=== PATIENT | female | born 1960 | race Caucasian/White ===

== ENCOUNTER 2017-07-04 15:40 | Observation (INO) | payer MEDICARE, MEDICAID, SELFPAY ==
[2017-07-04 15:41] VITALS: BP 106/95; PULSE 90; RESP 18; TEMP 37.1; O2SAT 97; BMI 33.7
--- NOTE | 2017-07-04 15:53 | EKG12_ITS ---
Test Reason : VOMITTING Blood Pressure : / mmHG Vent. Rate : 072 BPM Atrial Rate : 072 BPM P-R Int : 134 ms QRS Dur : 072 ms QT Int : 396 ms P-R-T Axes : 033 -08 004 degrees QTc Int : 433 ms Normal sinus rhythm Normal ECG Confirmed by LEMUEL JOHNSON, CHAITANYA ([id number]), index editor JARET SZYMANSKI ([id number]) on 07/06/2017 1:59:08 PM Referred By: ROSY Confirmed By:CHAITANYA HDEZ MD
--- NOTE | 2017-07-04 15:53 | CT_ITS ---
CT Abdomen And Pelvis W/ Contrast INDICATION: N/V/D AFTER EATING [place], HTN COMPARISON: None TECHNIQUE: Axial CT imaging of the abdomen and pelvis with IV contrast. Coronal and sagittal reformatted images. Radiation dose optimization technique applied. 100 mL of Isovue-300 were given intravenously. FINDINGS: The heart size is at the upper limits of normal. The liver, gallbladder, spleen, adrenal glands, and pancreas are unremarkable. The kidneys enhance contrast symmetrically bilaterally and are without evidence of hydronephrosis. Small cortical renal cyst is noted on the right. The bowel loops are nondistended. Air-fluid levels are seen throughout the small bowel loops and colon compatible with given history of diarrhea. There is no evidence of significant mesenteric fat stranding, free air or free fluid. Urinary bladder is unremarkable. Osseous structures are age-appropriate. CT/Abdomen/Pelvis W IV Cont ONLY IMPRESSION: Fluid throughout the small bowel and colon to the level of the rectum compatible with given history of diarrhea. Otherwise no acute intra-abdominal or pelvic pathology identified. at 1750 Reported and signed by: Adelita Bonilla MD Electronically Signed: Adelita Bonilla MD at 17:49 EDT Tel , Service support ,
[2017-07-04] MEDS: Ondansetron 4 MG/2 ML Vial IV (15:59)
[2017-07-04] MEDS: 0.9% Normal Saline 1,000 ML 1000 ML IV (15:59)
--- NOTE | 2017-07-04 15:59 | ED.DCSUM_ITS ---
- ER Visit Summary Date of Service: 07/04/17 Chief Complaint: Nausea, vomiting and diarrhea History of Present Illness: The patient is a 57 F who presents for nausea, vomiting and diarrhea with onset yesterday. Patient started with diffuse abdominal pain and then several episodes of watery diarrhea without blood or mucus. Patient has vomited twice today. Last episode of diarrhea was just prior to EMS arrival. Patient currently denies having abdominal pain. No history of abdominal surgeries. Patient complains of generalized weakness and malaise. 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 No official diagnosis. Denies other medical conditions. Physical Examination: Vital signs: afebrile, hemodynamically stable, no hypoxia on room air General: well nourished, well developed, in no distress Skin: warm, dry, no rash, no pallor HEENT: normocephalic and atraumatic; PERRL, EOMI, dry mucous membranes Cardiovascular: regular rate and rhythm without murmurs, no peripheral edema, 2 + pulses all distal extremities Respiratory: No increased work of breathing, lungs are clear to auscultation bilaterally, no rales, rhonchi or wheezing Abdominal: Abdomen is soft, nontender with hyperactive bowel sounds, no guarding or rebound, no masses MSK: Moves all extremities, no deformities, normal strength Neuro: Awake and alert, oriented ?4. No facial droop, sensation and motor function intact and symmetric Test Results: Abnormal Lab Results 07/04/17 07/04/17 07/04/17 16:00 16:00 17:30 WBC 3.3 L RBC 2.43 L Hgb 6.8 L Hct 21.5 L MCV 88.5 MCH 28.0 MCHC 31.6 L RDW 12.6 RDW Differential 40.6 Plt Count 98 L MPV 10.6 Immature Gran % (Auto) 0.000 Neut % (Auto) 82.0 H Lymph % (Auto) 12.2 L [place] % (Auto) 5.5 Eos % (Auto) 0.3 Baso % (Auto) 0.0 Absolute Neuts (auto) 2.7 Absolute Lymphs (auto) 0.40 L Total Counted Not Reportable Differential Comment SCANNED Diff Path Review May foll Sodium 137 Potassium 4.1 Chloride 106 Carbon Dioxide 23.0 Anion Gap 8 BUN 13 Creatinine 1.09 H Estim Creat Clear Calc 42.97 Est GFR (MDRD) Af Amer 67 Est GFR (MDRD) Non-Af 55 L BUN/Creatinine Ratio 11.9 Glucose 134 H Calcium 9.2 Total Bilirubin 1.30 H AST 10 L ALT 16 Alkaline Phosphatase 143 H Troponin I < 0.02 Total Protein 8.5 H Albumin 3.9 Globulin 4.6 H Albumin/Globulin Ratio 0.8 L Lipase 88 Urine Color Urine Clarity Urine pH Ur Specific [place] Urine Protein Urine Glucose (UA) Urine Ketones Urine Occult Blood Urine Nitrite Urine Bilirubin Urine Urobilinogen Ur Leukocyte Esterase Urine RBC Urine WBC Ur Squamous Epith Cells Urine Bacteria Urine Mucus Blood Type A POSITIVE Antibody Screen NEGATIVE 07/04/17 18:16 WBC RBC Hgb Hct MCV MCH MCHC RDW RDW Differential Plt Count MPV Immature Gran % (Auto) Neut % (Auto) Lymph % (Auto) [place] % (Auto) Eos % (Auto) Baso % (Auto) Absolute Neuts (auto) Absolute Lymphs (auto) Total Counted Differential Comment Diff Path Review Sodium Potassium Chloride Carbon Dioxide Anion Gap BUN Creatinine Estim Creat Clear Calc Est GFR (MDRD) Af Amer Est GFR (MDRD) Non-Af BUN/Creatinine Ratio Glucose Calcium Total Bilirubin AST ALT Alkaline Phosphatase Troponin I Total Protein Albumin Globulin Albumin/Globulin Ratio Lipase Urine Color Yellow Urine Clarity Clear Urine pH 5.0 Ur Specific [place] 1.010 Urine Protein 30 H Urine Glucose (UA) Normal Urine Ketones Negative Urine Occult Blood 50 H Urine Nitrite Negative Urine Bilirubin Negative Urine Urobilinogen Normal Ur Leukocyte Esterase 500 H Urine RBC 0 SEEN Urine WBC 0-5 SEEN Ur Squamous Epith Cells 0-5 SEEN Urine Bacteria 0 SEEN Urine Mucus 0 SEEN Blood Type Antibody Screen Clinical Impression(s) from Imaging Studies Abdomen/Pelvis CT 07/04/17 15:53 IMPRESSION: Fluid throughout the small bowel and colon to the level of the rectum compatible with given history of diarrhea. Otherwise no acute intra-abdominal or pelvic pathology identified. at 1750 Reported and signed by: Adelita Bonilla MD Electronically Signed: Adelita Bonilla MD at 17:49 EDT Tel , Service support , Emergency Department Course and Treatment: Given patient's age and nonspecific cardiac history with abdominal pain and vomiting, chest pain workup was included in patient's workup. Differential includes gastroenteritis, bowel obstruction, diverticulitis, colitis, acute coronary syndrome, metabolic pathology, among other possibilities. Patient was given IV hydration due to clinical appearance of dehydration. Zofran given for nausea, and patient declined pain medication as she is currently not having abdominal discomfort. Patient's lab work was remarkable for pancytopenia, changed from labs one year ago. Stool guaiac was performed and showed no occult blood. Patient did have active diarrhea at the time of rectal exam. The abdomen and pelvis showed no bowel obstruction, perforation, or other acute pathology other than fluid in the small bowel and colon consistent with diarrhea. Urine was negative for infection. Type and screen was performed, although patient had no active bleeding identified and thus transfusion was not given at this time. Concern is patient is still having active diarrhea with concern for dehydration. She is also pancytopenic, with the risk of further worsening of her pancytopenia with IV hydration and effective hemodilution. She would benefit from overnight observation for hydration and close monitoring of her condition. Patient was discussed with Dr. Resendez and admitted. Treatment Plan: [] Disposition: [] Impression: Gastroenteritis, pancytopenia, dehydration This note was generated with [employer] dictation software. It may contain incorrect words, spelling, and punctuation that were not noted in review of the chart prior to signing ED Disposition - Plan for ED Patient: Chief Complaint: Nausea/Vomiting/Diarrhea Referrals: Jaylon Jenkins DO [Primary Care Provider] -
[2017-07-04 16:24] LABS: Absolute Neutrophil Count 2.7 X10^3/uL (2.0-7.7); Eosinophil# 0.01 X10^3/uL; Eosinophils% 0.3 % (0-5); Hematocrit 21.5 % (37-47); Hemoglobin 6.8 g/dl (12.0-15.0); Lymphocyte % 12.2 % (19-41); Mean Corp Hgb Conc 31.6 g/gl (32-36); Mean Corpuscular Volume 88.5 fL (81-99); Mean Platelet Vol. 10.6 fl (6.2-12.0); Monocyte# 0.18 X10^3/uL; Monocyte% 5.5 % (0-10); Platelet Count 98 K/mm3 (150-450); RBC Distribution Width CV 12.6 % (11.6-14.6); RBC Distribution Width SD 40.6 fl (35.1-43.9); Red Blood Count 2.43 M/mm3 (4.2-5.4); White Blood Count 3.3 K/mm3 (4.4-11.0)
[2017-07-04 16:26] LABS: Differential Indicated SCAN CRITERIA MET; POSITIVE COUNT NO; POSITIVE DIFFERENTIAL YES; POSITIVE MORPHOLOGY NO
[2017-07-04 16:41] LABS: ALB/GLOB Ratio 0.8 RATIO (0.9-2.4); AST(SGOT) 10 U/L (15-37); Alanine Aminotransfer ALT/SGPT 16 U/L (13-56); Albumin, Serum 3.9 g/dL (3.2-5.0); Alkaline Phosphatase 143 U/L (45-117); Anion Gap 8 (5-15); BUN 13 mg/dL (7-18); BUN/Creat Ratio 11.9 RATIO (10-20); Calcium,Total 9.2 mg/dL (8.5-10.1); Chloride 106 mmol/L (98-107); Creatinine, Serum 1.09 mg/dL (0.55-1.02); EST Glomerular Filtration Rate 55 mL/min (>60); Est Glom Filt Rate - Afr Amer 67 mL/min (>60); Estimated Creatinine Clearance 42.97 ml/min; Globulin 4.6 g/dL (2.2-4.2); Glucose 134 mg/dL (74-106); Lipase 88 U/L (73-393); Potassium 4.1 mmol/L (3.5-5.1); Protein, Total 8.5 g/dL (6.4-8.2); Sodium Level 137 mmol/L (136-145)
[2017-07-04 17:19] LABS: Differential Comment SCANNED
[2017-07-04 18:27] LABS: Color, Urine Yellow (Yellow); Glucose, Dipstick Normal (Normal); Ketone-Dipstick Negative (Negative); Leukocyte Esterase-Dipstick 500 /ul (Negative); Nitrite-Dipstick Negative (Negative); Occult Blood-Urine 50 /ul (Negative); Protein-Dipstick 30 mg/dl (Negative); Urine Bilirubin Dipstick Negative (Negative); Urine Clarity Clear (Clear); Urine Urobilinogen Normal (Normal)
[2017-07-04 18:29] LABS: Bacteria 0 SEEN /hpf (None Seen); Mucous, Urine 0 SEEN /hpf (<or=2+); Red Blood Cells-Urine 0 SEEN /hpf (0-5)
[2017-07-04 18:33] LABS: Squamous Epithelial Cells - UA 0-5 SEEN /hpf (5-10); White Blood Cells 0-5 SEEN /hpf (0-5)
[2017-07-04 19:15] VITALS: BP 138/89; PULSE 80; RESP 16; O2SAT 97
[2017-07-04 19:23] VITALS: BP 138/89; PULSE 80; RESP 16; TEMP 37.1; O2SAT 97
[2017-07-04] MEDS: 0.9% Normal Saline 1,000 ML 100 ML IV (19:31)
--- NOTE | 2017-07-04 21:03 | PCM.HP.STD ---
Problem List (1) Pancytopenia Status: Acute (2) Signs and symptoms of anemia Status: Acute (3) Diarrhea Status: Acute History of Present Illness Date of Admission: 07/04/17 Chief Complaint: Acute symptomatic anemia The patient is a 57 year old female w/ h/o HTN admitted for acute symptomatic anemia. She ate at [employer] yesterday for dinner and after several hours, she had continuous diarrhea. The diarrhea was so severe that she was incontinence. No blood or melena noted. She also had associated severe dull aching abdominal pain. Pain was constant. Pain did not radiate. Nothing made it better or worse. Pain was not associated with any other symptoms. She had generalized weakness that was also worsening. She also had nausea and vomiting. She vomited up watery brown material. She was not able to keep food down so she went to the ED for further workup. 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 Lives: With Family Smoking Status: Never smoker Alcohol: None Drugs: None - *Family History Maternal History Items: No pertinent history Review of Systems Constitutional: Denies: Chills, Fever, Weight Change HEENT: Denies: Head Aches, Sinus Congestion, Sinus Drainage Cardiovascular: Denies: Chest Pain, Palpitations Respiratory: Denies: Cough, Shortness of breath at rest, Sputum production Gastrointestinal: Reports: Abdominal Pain, Nausea, Vomiting Genitourinary: Denies: Dysuria Musculoskeletal: Denies: Joint Pain, Joint Tenderness Skin: Denies: Rash, Wounds Neurological: Denies: Numbness, Tingling, Focal weakness Psychiatric: Denies: Anxiety, Depression, Homicidal Ideations, Suicidal Ideations Hematologic/ Lymphatic: Denies: Easy Bruising, Easy Bleeding VTE Information - Inpt Only VTE Present on Admission: No VTE Mechan Device Prophylaxis: SCD's VTE Pharm Prophylaxis ordered?: Yes Patient Problems: Active and Suspected Problems Pancytopenia (Acute) Signs and symptoms of anemia (Acute) Diarrhea (Acute) - Physical Exam General: Alert, Oriented x3, Cooperative HEENT: Atraumatic, PERRLA, EOMI, Normocephalic Neck: Supple, No JVD, Negative Carotid Bruits Lungs: Clear to auscultation, Normal air movement Cardiovascular: Regular rate, No murmurs Abdomen: Bowel Sounds Present, Soft, Non Tender Extremities: No edema, Capillary Refill Less than 3 Seconds Skin: No rashes, No breakdown Musculoskeletal: No Tenderness to Palpation of Joints or Extremities Neurological: Cranial nerves II-XII grossly intact Psych/Mental Status: Normal Affect, Appropriate Vital Signs Temp Pulse Resp BP Pulse Ox 98.7 F 80 16 138/89 H 97 07/04/17 19:23 07/04/17 19:23 07/04/17 19:23 07/04/17 19:23 07/04/17 19:23 Oxygen Delivery Method Room Air Weight: 81.1 kg Body Mass Index (BMI) 33.7 Microbiology Past 72 Hours 07/04/17 16:30 Stool Occult Blood (BRODY) - Final Stool Laboratory Tests Past 24 Hrs 07/04/17 07/04/17 07/04/17 16:00 16:00 17:30 WBC 3.3 L RBC 2.43 L Hgb 6.8 L Hct 21.5 L MCV 88.5 MCH 28.0 MCHC 31.6 L RDW 12.6 RDW Differential 40.6 Plt Count 98 L MPV 10.6 Immature Gran % (Auto) 0.000 Neut % (Auto) 82.0 H Lymph % (Auto) 12.2 L [place] % (Auto) 5.5 Eos % (Auto) 0.3 Baso % (Auto) 0.0 Absolute Neuts (auto) 2.7 Absolute Lymphs (auto) 0.40 L Total Counted Not Reportable Differential Comment SCANNED Diff Path Review May foll Sodium 137 Potassium 4.1 Chloride 106 Carbon Dioxide 23.0 Anion Gap 8 BUN 13 Creatinine 1.09 H Estim Creat Clear Calc 42.97 Est GFR (MDRD) Af Amer 67 Est GFR (MDRD) Non-Af 55 L BUN/Creatinine Ratio 11.9 Glucose 134 H Calcium 9.2 Total Bilirubin 1.30 H AST 10 L ALT 16 Alkaline Phosphatase 143 H Troponin I < 0.02 Total Protein 8.5 H Albumin 3.9 Globulin 4.6 H Albumin/Globulin Ratio 0.8 L Lipase 88 Urine Color Urine Clarity Urine pH Ur Specific [place] Urine Protein Urine Glucose (UA) Urine Ketones Urine Occult Blood Urine Nitrite Urine Bilirubin Urine Urobilinogen Ur Leukocyte Esterase Urine RBC Urine WBC Ur Squamous Epith Cells Urine Bacteria Urine Mucus Blood Type A POSITIVE Antibody Screen NEGATIVE 07/04/17 18:16 WBC RBC Hgb Hct MCV MCH MCHC RDW RDW Differential Plt Count MPV Immature Gran % (Auto) Neut % (Auto) Lymph % (Auto) [place] % (Auto) Eos % (Auto) Baso % (Auto) Absolute Neuts (auto) Absolute Lymphs (auto) Total Counted Differential Comment Diff Path Review Sodium Potassium Chloride Carbon Dioxide Anion Gap BUN Creatinine Estim Creat Clear Calc Est GFR (MDRD) Af Amer Est GFR (MDRD) Non-Af BUN/Creatinine Ratio Glucose Calcium Total Bilirubin AST ALT Alkaline Phosphatase Troponin I Total Protein Albumin Globulin Albumin/Globulin Ratio Lipase Urine Color Yellow Urine Clarity Clear Urine pH 5.0 Ur Specific [place] 1.010 Urine Protein 30 H Urine Glucose (UA) Normal Urine Ketones Negative Urine Occult Blood 50 H Urine Nitrite Negative Urine Bilirubin Negative Urine Urobilinogen Normal Ur Leukocyte Esterase 500 H Urine RBC 0 SEEN Urine WBC 0-5 SEEN Ur Squamous Epith Cells 0-5 SEEN Urine Bacteria 0 SEEN Urine Mucus 0 SEEN Blood Type Antibody Screen Assessment/Plan Active and Suspected Problems Pancytopenia (Acute) Signs and symptoms of anemia (Acute) Diarrhea (Acute) 57 year old female w/ h/o HTN admitted for acute symptomatic anemia. 1) Acute normocytic anemia: No gross e/o bleeding. Guaiac was negative. Will get iron studies, retic, B12, folate, LDH and haptoglobin. Will also get FOBT. Will transfuse 1 unit of PRBC to keep H and H > 7. 2) Pancytopenia: No clear etiology. Will get uric acid, LDH, coags, and serial labs. If persistent, most likely will need outpt hematology follow up. Monitor. 3) AIMEE: Most likely secondary azotemia. Hydration. Monitor for now. 4) Diarrhea: Hydration. No bleed or mucus. Will send for stool studies and C. diff. Supportive. 5) Prophylaxis: SCD
[2017-07-04 21:25] VITALS: BMI 33.2
[2017-07-04 21:30] VITALS: BMI 33.3
[2017-07-04 21:50] VITALS: BP 156/85; PULSE 79; RESP 18; TEMP 37.5; O2SAT 99
[2017-07-04 21:54] LABS: Immature Platelet Fraction 5.4 % (1.0-7.9); Reticulocyte Count 0.56 % (0.5-1.5)
[2017-07-04 22:00] VITALS: PULSE 74
[2017-07-04 22:19] LABS: Iron 44 ug/dL (50-170); Iron Binding Capacity,Total 309 ug/dL (250-450); LDH 169 U/L (84-246); PERCENT IRON SATURATION 14.2 % (15.0-55.0); Uric Acid 5.8 mg/dL (2.6-6.0)
[2017-07-04 22:40] LABS: Prothrombin Time (Protime)PT. 13.2 SECONDS (11.7-14.9)
[2017-07-04] MEDS: 0.9% Normal Saline 1,000 ML 150 ML IV (22:53)
[2017-07-05] VITALS (10 sets, daily range): BP systolic 115–147; BP diastolic 70–84; PULSE 51–81; RESP 16–18; TEMP 36.8–38.2; O2SAT 93–98
[2017-07-05] MEDS: Acetaminophen 325 MG Tablet 650 MG PO (01:42)
[2017-07-05] MEDS: Ceftriaxone 1 GM/50 ML BAG IV (04:20)
[2017-07-05 06:15] LABS: Absolute Lymphocyte Count 0.86 X10^3/ul (0.83-4.51); Absolute Neutrophil Count 3.1 X10^3/uL (2.0-7.7); Basophil# 0.01 X10^3/uL; Basophil% 0.2 % (0-1); Eosinophil# 0.03 X10^3/uL; Eosinophils% 0.7 % (0-5); Hematocrit 41.2 % (37-47); Hemoglobin 13.6 g/dl (12.0-15.0); Lymphocyte # 0.86 X10^3/ul (4.0); Mean Corpuscular Volume 87.8 fL (81-99); Mean Platelet Vol. 11.9 fl (6.2-12.0); Monocyte# 0.48 X10^3/uL; Monocyte% 10.6 % (0-10); Neutrophil # 3.14 X10^3/uL (2.7-7.7); Neutrophil % 69.3 % (47-70); Platelet Count 151 K/mm3 (150-450); RBC Distribution Width CV 12.8 % (11.6-14.6); RBC Distribution Width SD 40.9 fl (35.1-43.9); Red Blood Count 4.69 M/mm3 (4.2-5.4); White Blood Count 4.5 K/mm3 (4.4-11.0)
[2017-07-05 06:16] LABS: POSITIVE COUNT NO; POSITIVE DIFFERENTIAL NO; POSITIVE MORPHOLOGY NO
[2017-07-05 06:39] LABS: Anion Gap 6 (5-15); BUN 9 mg/dL (7-18); BUN/Creat Ratio 11.2 RATIO (10-20); Calcium,Total 8.2 mg/dL (8.5-10.1); Chloride 110 mmol/L (98-107); EST Glomerular Filtration Rate 79 mL/min (>60); Est Glom Filt Rate - Afr Amer 95 mL/min (>60); Estimated Creatinine Clearance 58.55 ml/min; Glucose 120 mg/dL (74-106); Potassium 4.1 mmol/L (3.5-5.1); Sodium Level 139 mmol/L (136-145)
[2017-07-05 08:21] LABS: Absolute Lymphocyte Count 1.08 X10^3/ul (0.83-4.51); Absolute Neutrophil Count 2.4 X10^3/uL (2.0-7.7); Basophil# 0.01 X10^3/uL; Basophil% 0.2 % (0-1); Eosinophil# 0.05 X10^3/uL; Eosinophils% 1.2 % (0-5); Hematocrit 40.2 % (37-47); Hemoglobin 13.1 g/dl (12.0-15.0); Lymphocyte # 1.08 X10^3/ul (4.0); Lymphocyte % 26.7 % (19-41); Mean Corp Hgb Conc 32.6 g/gl (32-36); Mean Corpuscular Hgb 28.7 pg (27.0-32.0); Mean Platelet Vol. 11.4 fl (6.2-12.0); Monocyte# 0.45 X10^3/uL; Monocyte% 11.1 % (0-10); Neutrophil # 2.44 X10^3/uL (2.7-7.7); Neutrophil % 60.6 % (47-70); Platelet Count 151 K/mm3 (150-450); RBC Distribution Width CV 12.9 % (11.6-14.6); RBC Distribution Width SD 41.4 fl (35.1-43.9); Red Blood Count 4.57 M/mm3 (4.2-5.4)
[2017-07-05 08:31] LABS: Anion Gap 5 (5-15); BUN 9 mg/dL (7-18); BUN/Creat Ratio 11.5 RATIO (10-20); Calcium,Total 8.1 mg/dL (8.5-10.1); Chloride 112 mmol/L (98-107); Creatinine, Serum 0.78 mg/dL (0.55-1.02); EST Glomerular Filtration Rate 81 mL/min (>60); Est Glom Filt Rate - Afr Amer 98 mL/min (>60); Estimated Creatinine Clearance 60.05 ml/min; Glucose 104 mg/dL (74-106); Sodium Level 140 mmol/L (136-145)
[2017-07-05 08:38] LABS: POSITIVE COUNT NO; POSITIVE DIFFERENTIAL NO; POSITIVE MORPHOLOGY NO
[2017-07-05 10:47] LABS: Absolute Lymphocyte Count 1.13 X10^3/ul (0.83-4.51); Basophil# 0.02 X10^3/uL; Basophil% 0.5 % (0-1); Eosinophils% 2.7 % (0-5); Hemoglobin 13.1 g/dl (12.0-15.0); Lymphocyte # 1.13 X10^3/ul (4.0); Lymphocyte % 30.2 % (19-41); Mean Corp Hgb Conc 33.6 g/gl (32-36); Mean Corpuscular Hgb 29.6 pg (27.0-32.0); Mean Platelet Vol. 11.3 fl (6.2-12.0); Monocyte# 0.52 X10^3/uL; Monocyte% 13.9 % (0-10); Neutrophil # 1.96 X10^3/uL (2.7-7.7); Neutrophil % 52.4 % (47-70); Platelet Count 156 K/mm3 (150-450); RBC Distribution Width CV 12.8 % (11.6-14.6); RBC Distribution Width SD 40.9 fl (35.1-43.9); Red Blood Count 4.43 M/mm3 (4.2-5.4); White Blood Count 3.7 K/mm3 (4.4-11.0)
[2017-07-05 10:49] LABS: POSITIVE COUNT NO; POSITIVE DIFFERENTIAL NO; POSITIVE MORPHOLOGY NO
--- NOTE | 2017-07-05 11:11 | PCM.DC ---
- Discharge Diagnoses Current Active Problems: Current Active and Chronic Problems Pancytopenia (Acute) Signs and symptoms of anemia (Acute) Diarrhea (Acute) You will use the following diet at home:: Cardiac Your food should be the consistency of: Regular Discharge Activity: Return to Normal Activity Weight Bearing Status: Full weight bearing Call your doctor if you observe: Fever of 101 or Higher, Shortness of breath, Dizziness, Fainting spells, Chest pain, Increased palpitations (irregular heartbeat), Uncontrolled pain Instructions: ED Food Poison Or Gastroenteritis Allergies/Adverse Reactions: Allergies No Known Allergies Allergy (Verified 12/06/16 00:43) Medications to take at Discharge Lisinopril [Zestril] 10 mg PO DAILY 07/04/17 Nitroglycerin 0.4 mg PO X1 PRN 07/04/17 Primary Care Physician: Jaylon Jenkins DO [Primary Care Provider] - Please follow up with your Primary Care Physician in: 2 weeks.
[2017-07-05] MEDS: Lisinopril 10 MG Tablet PO (12:07)
--- NOTE | 2017-07-05 14:28 | PCM.DC.SUM ---
Discharge Date and Diagnosis Date of Admission: 07/04/17 Date of Discharge: 07/05/17 - Primary Discharge Diagnosis #1 acute viral gastroenteritis. #2 acute anemia/pancytopenia, probable laboratory error. Hospital Course and Treatment Imaging Results: Clinical Impression(s) from Imaging Studies Abdomen/Pelvis CT 07/04/17 15:53 IMPRESSION: Fluid throughout the small bowel and colon to the level of the rectum compatible with given history of diarrhea. Otherwise no acute intra-abdominal or pelvic pathology identified. at 1750 Reported and signed by: Adelita Bonilla MD Electronically Signed: Adelita Bonilla MD at 17:49 EDT Tel , Service support , Operations: None Procedures: Blood transfusion Summary of Care Provided: Patient seen and examined on the day of discharge and appeared to be stable to be discharged home. She has no more diarrhea. Denied abdominal pain, nausea, vomiting, fever chills. Denied dizziness or lightheadedness. Vital signs stable, afebrile. - Physical Exam General: Alert, Oriented x3, Cooperative, No apparent distress. HEENT: Atraumatic, PERRLA, EOMI. Neck: Supple, No JVD, Negative Carotid Bruits, Trachea Midline, Thyroid Normal. Lungs: Clear to auscultation, Normal air movement, No rhonchi, No wheeze, No rales. Cardiovascular: Regular rate, Regular Rhythm, Normal S1, Normal S2, PMI Normal. Abdomen: Bowel Sounds Present, Soft, Non Tender, Non-Distended, No Hepato-splenomegaly. Extremities: No clubbing, No cyanosis, No edema Skin: No rashes, No breakdown Neurological: Neuro grossly intact Vital Signs are stable. Hospital course: The patient is a 57 year old F admitted because of nausea, vomiting and diarrhea after she ate at [employer] and she was diagnosed with acute viral gastroenteritis. In the emergency room, her routine blood work was remarkable for pancytopenia. Her total white blood cell count, hemoglobin and platelet count were low. Her absolute neutrophil count was normal. She was admitted with hemoglobin of 6.8 g/dL. Her stool for occult blood was negative. Patient denied any bleeding from body orifices. Her pro time and INR were normal. Her platelet count was 98,000. There was no evidence or source of bleeding during this admission. She received 1 unit of packed RBCs and her hemoglobin went up from 6.8 g/dL after 1 unit to 13.6 g/dL. On repeat CBC this morning, her total white blood cell count, hemoglobin and platelet count old came back normal. This is considered probably a laboratory error versus some acute viral gastrointestinal illness that caused transient pancytopenia. Today, patient has no more diarrhea and her vital signs remained stable and she remained afebrile. Her BMP remained normal. Another CBC done around noon today before discharge again showed hemoglobin of 13.1 g/dL, platelet count of 151,000 and total white blood cell count is 4000. Patient discharged home in a stable medical condition, discharged on her lisinopril as usual without any changes, recommended to hydrate herself very well if she continued to have diarrhea, recommended follow-up with PCP in 2 weeks. Discharge Activity: Return to Normal Activity Weight Bearing Status: Full weight bearing Call your doctor if you observe: Fever of 101 or Higher, Shortness of breath, Dizziness, Fainting spells, Chest pain, Increased palpitations (irregular heartbeat), Uncontrolled pain Home Medications: Medications to take at Discharge Lisinopril [Zestril] 10 mg PO DAILY 07/04/17 Nitroglycerin 0.4 mg PO X1 PRN 07/04/17 Primary Care Physician: Jaylon Jenkins DO [Primary Care Provider] - Please follow up with your Primary Care Physician in: 2 weeks. Patient Instructions: ED Food Poison Or Gastroenteritis Disposition: Home Minutes spent on discharge:: 26 Patient Condition:: Stable Medical Necessity - Tobacco Use Smoking Status: Never smoker Tobacco Use: Secondhand Meaningful Use Info Meaningful Use Diagnoses (Choose all that apply): None applicable Code Visit Inpatient E&M: 86364 Disch Hosp
--- NOTE | 2017-07-05 14:37 | DS.PCM_ITS ---
Discharge Date and Diagnosis Date of Admission: 07/04/17 Date of Discharge: 07/05/17 - Primary Discharge Diagnosis #1 acute viral gastroenteritis. #2 acute anemia/pancytopenia, probable laboratory error. Hospital Course and Treatment Imaging Results: Clinical Impression(s) from Imaging Studies Abdomen/Pelvis CT 07/04/17 15:53 IMPRESSION: Fluid throughout the small bowel and colon to the level of the rectum compatible with given history of diarrhea. Otherwise no acute intra-abdominal or pelvic pathology identified. at 1750 Reported and signed by: Adelita Bonilla MD Electronically Signed: Adelita Bonilla MD at 17:49 EDT Tel , Service support , Operations: None Procedures: Blood transfusion Summary of Care Provided: Patient seen and examined on the day of discharge and appeared to be stable to be discharged home. She has no more diarrhea. Denied abdominal pain, nausea, vomiting, fever chills. Denied dizziness or lightheadedness. Vital signs stable, afebrile. - Physical Exam General: Alert, Oriented x3, Cooperative, No apparent distress. HEENT: Atraumatic, PERRLA, EOMI. Neck: Supple, No JVD, Negative Carotid Bruits, Trachea Midline, Thyroid Normal. Lungs: Clear to auscultation, Normal air movement, No rhonchi, No wheeze, No rales. Cardiovascular: Regular rate, Regular Rhythm, Normal S1, Normal S2, PMI Normal. Abdomen: Bowel Sounds Present, Soft, Non Tender, Non-Distended, No Hepato- splenomegaly. Extremities: No clubbing, No cyanosis, No edema Skin: No rashes, No breakdown Neurological: Neuro grossly intact Vital Signs are stable. Hospital course: The patient is a 57 year old F admitted because of nausea, vomiting and diarrhea after she ate at [employer] and she was diagnosed with acute viral gastroenteritis. In the emergency room, her routine blood work was remarkable for pancytopenia. Her total white blood cell count, hemoglobin and platelet count were low. Her absolute neutrophil count was normal. She was admitted with hemoglobin of 6.8 g/dL. Her stool for occult blood was negative. Patient denied any bleeding from body orifices. Her pro time and INR were normal. Her platelet count was 98,000. There was no evidence or source of bleeding during this admission. She received 1 unit of packed RBCs and her hemoglobin went up from 6.8 g/dL after 1 unit to 13.6 g/dL. On repeat CBC this morning, her total white blood cell count, hemoglobin and platelet count old came back normal. This is considered probably a laboratory error versus some acute viral gastrointestinal illness that caused transient pancytopenia. Today, patient has no more diarrhea and her vital signs remained stable and she remained afebrile. Her BMP remained normal. Another CBC done around noon today before discharge again showed hemoglobin of 13.1 g/dL, platelet count of 151,000 and total white blood cell count is 4000. Patient discharged home in a stable medical condition, discharged on her lisinopril as usual without any changes, recommended to hydrate herself very well if she continued to have diarrhea, recommended follow-up with PCP in 2 weeks. Discharge Activity: Return to Normal Activity Weight Bearing Status: Full weight bearing Call your doctor if you observe: Fever of 101 or Higher, Shortness of breath, Dizziness, Fainting spells, Chest pain, Increased palpitations (irregular heartbeat), Uncontrolled pain Home Medications: Medications to take at Discharge Lisinopril [Zestril] 10 mg PO DAILY 07/04/17 Nitroglycerin 0.4 mg PO X1 PRN 07/04/17 Primary Care Physician: Jaylon Jenkins DO [Primary Care Provider] - Please follow up with your Primary Care Physician in: 2 weeks. Patient Instructions: ED Food Poison Or Gastroenteritis Disposition: Home Minutes spent on discharge:: 26 Patient Condition:: Stable Medical Necessity - Tobacco Use Smoking Status: Never smoker Tobacco Use: Secondhand Meaningful Use Info Meaningful Use Diagnoses (Choose all that apply): None applicable Code Visit Inpatient E&M: 23722 Disch Hosp
[2017-07-06 09:16] LABS: Vitamin B12 364 pg/mL (211-911)
[2017-07-06 10:05] LABS: Pathologist Review Reviewed
[2017-07-07 10:48] LABS: Haptoglobin 169 mg/dL (34-200)
== END 2017-07-05 13:10 | disposition home or self-care (01) | DRG 392 ==
LOC: ED 16:19 → MS2 20:53
PROVIDERS: Admitting Provider Internal Medicine; Emergency Provider Emergency Medicine; Family Provider Family Medicine; PCP Family Medicine; Visit Provider Hospitalist
DX: A08.4 Viral intestinal infection, unspecified (principal); D61.818 Other pancytopenia; E86.0 Dehydration; N17.9 Acute kidney failure, unspecified; I10 Essential (primary) hypertension; Z79.899 Other long term (current) drug therapy
CPT/HCPCS: 36415; 36430; 74177; 80048; 80053; 81001; 82274; 82607; 82746; 83010; 83540; 83550; 83615; 83690; 84484; 84550; 85025; 85045; 85610; 86850; 86900; 86920; 86922; 87040; 93005; 99218; 99283; J7030; P9016; Q9967; A4216; G0378; J2405

== ENCOUNTER 2017-10-04 21:00 | Emergency (ER) | payer MEDICARE, MEDICAID, SELFPAY ==
[2017-10-04 21:01] VITALS: BP 156/100; PULSE 48; RESP 18; TEMP 36.4; O2SAT 100; BMI 33.8
--- NOTE | 2017-10-04 21:24 | RAD_ITS ---
STUDY: X-RAY - LEFT HAND REASON FOR EXAM: Female, 57 years old. PT STATED PAIN AFTER CLOSING HAND IN CAR DOOR TECHNIQUE: 3 view(s) of the hand. COMPARISON: None. FINDINGS: Normal radiocarpal articulation. Normal distal radioulnar joint. Remote deformity of the ulnar styloid. Normal visualized carpal bones. Normal carpal articulations Normal carpometacarpal articulation of the thumb. Normal second through fifth carpometacarpal joints. Normal metacarpi. Normal metacarpophalangeal joint of the thumb. Normal interphalangeal joint of the thumb. Normal proximal and distal phalanges of the thumb. Normal metacarpophalangeal joints of the second through fifth fingers. Normal proximal and distal interphalangeal joints of the second through fifth fingers. Normal phalanges of the second through fifth fingers. The soft tissue structures are unremarkable. RAD/Hand Min 3 Views IMPRESSION: No acute osseous injury is evident. Electronically Signed: Philip Hurd MD at 22:18 EDT Tel , Service support ,
--- NOTE | 2017-10-04 22:36 | ED.VISSUMM ---
- ER Visit Summary Date of Service: 10/04/17 Chief Complaint: Left hand pain History of Present Illness: The patient is a 57 F who presents with left hand pain. About 2 hours prior to presentation was excellently closed in a car door. She denies paresthesias weakness or loss of function. She denies any other injury. Physical Examination: Afebrile vitals unremarkable I do not appreciate any obvious signs of trauma such as lacerations contusions abrasions hematomas or soft tissue swelling Patient does complain of pain of the distal left hand near the second through fifth MCPs she has brisk capillary refill normal sensation light touch and active full range of motion Test Results: Hand x-ray shows no acute osseous injury Emergency Department Course and Treatment: Patient was advised on supportive care including rest ice elevation and anti-inflammatory use. All questions answered bedside and patient discharged home. Treatment Plan: [] Disposition: Discharge Impression: Acute left hand contusion This note was generated with Synacor dictation software. It may contain incorrect words, spelling, and punctuation that were not noted in review of the chart prior to signing ED Disposition - Plan for ED Patient: Chief Complaint: Upper Extremity Injury Referrals: Jaylon Jenkins DO [Primary Care Provider] -
--- NOTE | 2017-10-04 22:38 | ED.DEP ---
ED Disposition - Plan for ED Patient: Chief Complaint: Upper Extremity Injury Instructions: ED Contusion Hand Referrals: Jaylon Jenkins DO [Primary Care Provider] -
[2017-10-04] MEDS: Naproxen 500 MG Tablet PO (22:45)
[2017-10-04 22:46] VITALS: PULSE 78; RESP 14; O2SAT 99
== END 2017-10-04 23:14 | disposition home or self-care (01) ==
PROVIDERS: Emergency Provider Emergency Medicine; Family Provider Family Medicine; PCP Family Medicine
DX: S60.222A Contusion of left hand, initial encounter (principal); I10 Essential (primary) hypertension; Z79.82 Long term (current) use of aspirin; Z79.899 Other long term (current) drug therapy; W23.0XXA Caught, crushed, jammed, or pinched between moving objects, initial encounter; Y93.89 Activity, other specified; Y92.89 Other specified places as the place of occurrence of the external cause; Y99.8 Other external cause status
CPT/HCPCS: 73130; 99282

== ENCOUNTER → 2018-01-19 13:03 | Outpatient (CLI) | payer MEDICARE, MEDICAID, SELFPAY | PROVIDERS: Family Provider Family Medicine; PCP Family Medicine; Visit Provider Family Medicine | DX: I10 Essential (primary) hypertension (principal); R73.01 Impaired fasting glucose ==

== ENCOUNTER → 2018-01-25 09:17 | Outpatient (CLI) | payer MEDICARE, MEDICAID, SELFPAY ==
[2018-01-25 12:19] LABS: Absolute Lymphocyte Count 1.85 X10^3/ul (0.83-4.51); Absolute Neutrophil Count 2.1 X10^3/uL (2.0-7.7); Basophil# 0.02 X10^3/uL; Basophil% 0.5 % (0-1); Eosinophil# 0.09 X10^3/uL; Eosinophils% 2.1 % (0-5); Hemoglobin 12.8 g/dl (12.0-15.0); Lymphocyte # 1.85 X10^3/ul (4.0); Mean Corpuscular Hgb 28.8 pg (27.0-32.0); Mean Corpuscular Volume 90.1 fL (81-99); Mean Platelet Vol. 12.4 fl (6.2-12.0); Monocyte# 0.27 X10^3/uL; Monocyte% 6.3 % (0-10); Neutrophil # 2.07 X10^3/uL (2.7-7.7); Neutrophil % 48.1 % (47-70); Platelet Count 209 K/mm3 (150-450); RBC Distribution Width CV 12.6 % (11.6-14.6); RBC Distribution Width SD 40.8 fl (35.1-43.9); Red Blood Count 4.44 M/mm3 (4.2-5.4); White Blood Count 4.3 K/mm3 (4.4-11.0)
[2018-01-25 12:32] LABS: POSITIVE COUNT NO; POSITIVE DIFFERENTIAL NO; POSITIVE MORPHOLOGY NO
[2018-01-25 12:42] LABS: AST(SGOT) 25 U/L (15-37); Alanine Aminotransfer ALT/SGPT 26 U/L (13-56); Albumin, Serum 3.6 g/dL (3.2-5.0); Alkaline Phosphatase 112 U/L (45-117); Anion Gap 5 (5-15); BUN 10 mg/dL (7-18); Calcium,Total 8.9 mg/dL (8.5-10.1); Chloride 107 mmol/L (98-107); Creatinine, Serum 0.84 mg/dL (0.55-1.02); EST Glomerular Filtration Rate 75 mL/min (>60); Est Glom Filt Rate - Afr Amer 90 mL/min (>60); Globulin 3.7 g/dL (2.2-4.2); Glucose 116 mg/dL (74-106); Potassium 5.2 mmol/L (3.5-5.1); Protein, Total 7.3 g/dL (6.4-8.2); Sodium Level 139 mmol/L (136-145)
[2018-01-25 12:55] LABS: Hemoglobin A1c 6.2 % (4.2-6.3)
== END ==
PROVIDERS: Family Provider Family Medicine; PCP Family Medicine; Visit Provider Family Medicine
DX: I10 Essential (primary) hypertension (principal); R73.01 Impaired fasting glucose
CPT/HCPCS: 36415; 80053; 83036; 85025

== ENCOUNTER 2018-05-04 14:01 | Emergency (ER) | payer MEDICARE, MEDICAID, SELFPAY ==
[2018-05-04 14:02] VITALS: BP 184/88; PULSE 61; RESP 16; TEMP 36.6; O2SAT 99; BMI 35.2
[2018-05-04 15:01] LABS: Bacteria 0 SEEN /hpf (None Seen); Mucous, Urine 0 SEEN /hpf (<or=2+); Red Blood Cells-Urine 0 SEEN /hpf (0-5); Squamous Epithelial Cells - UA 0 SEEN /hpf (5-10)
[2018-05-04 15:08] LABS: Color, Urine Yellow (Yellow); Glucose, Dipstick Normal (Normal); Ketone-Dipstick Negative (Negative); Leukocyte Esterase-Dipstick 500 /ul (Negative); Nitrite-Dipstick Negative (Negative); Occult Blood-Urine 10 /ul (Negative); Protein-Dipstick Negative (Negative); Specific Gravity, Urine 1.015 (1.002-1.030); Urine Bilirubin Dipstick Negative (Negative); Urine Clarity Clear (Clear); Urine Urobilinogen Normal (Normal)
[2018-05-04 15:18] LABS: White Blood Cells 0-5 SEEN /hpf (0-5)
--- NOTE | 2018-05-04 16:00 | ED.VISSUMM ---
- ER Visit Summary Date of Service: 05/04/18 Chief Complaint: Dysuria, urgency and irritation of labia History of Present Illness: The patient is a 58 F who presents with dysuria, urgency and irritation of labia with urination for the past 2 days. She is sexually inactive. There is no history of STD. She denies vaginal bleeding or vaginal discharge. She is not diabetic. She denies polyuria, polydipsia, polyphagia, nocturia. She denies fever, chills night sweats. She denies abdominal pain. She denies low back pain or flank pain. Past medical history hypertension, pancytopenia and status post tonsillectomy. She has no allergies. Physical Examination: Vital signs noted. She is afebrile. BMI 35.2. Head is atraumatic normocephalic. Pupils are equal round reactive. Extraocular muscles are intact. TMs are pearly white with landmarks noted. Nares patent with no drainage. Posterior pharynx without erythema or exudate. Uvula is midline. There is no dysphonia or dysphasia. Trachea is midline. There is no stridor with auscultation of the neck. Heart is regular without murmur, gallop or rub. S1 and S2 are normal. Lungs are clear to auscultation with good movement of air bilaterally. Abdomen is soft nontender bowel sounds present normal. There is no suprapubic discomfort. There is no CVA tenderness noted. There is no inguinal lymphadenopathy. There is slight irritation of the labia. There is inflammation noted of the urethra. There is no vaginal discharge or bleeding. There is no herpetic lesions noted. Test Results: UA reveals leukoesterase blood and 5 WBCs. No bacteria is noted. Emergency Department Course and Treatment: UA was obtained to evaluate her symptoms. There is no evidence of yeast infection, herpetic lesions etc. Treatment Plan: Macrobid for 5 days Disposition: Discharged home Impression: Dysuria suspect UTI This note was generated with Therio dictation software. It may contain incorrect words, spelling, and punctuation that were not noted in review of the chart prior to signing ED Disposition - Plan for ED Patient: Disposition: Home or Assisted Living Instructions: ED Dysuria Uncertain Cause Prescriptions: Nitrofurantoin Macrocrystals [Macrobid] 100 mg PO Q12 #10 cap Nystatin Powder [Mycostatin Powder] 1 applic TOPICAL TID #1 bottle Referrals: Jaylon Jenkins, [Primary Care Provider] - 3-5 Days if not improving
[2018-05-04 16:19] VITALS: BP 158/93; PULSE 87; RESP 16; O2SAT 99
[2018-05-04] MEDS: Nitrofurantoin Macrocrystals 100 MG Capsule PO (16:34)
== END 2018-05-04 16:35 | disposition home or self-care (01) ==
PROVIDERS: Emergency Provider Emergency Medicine; Family Provider Family Medicine; PCP Family Medicine
DX: R30.0 Dysuria (principal); E66.9 Obesity, unspecified; Z68.35 Body mass index [BMI] 35.0-35.9, adult
CPT/HCPCS: 81001; 99283

== ENCOUNTER → 2018-06-01 10:49 | Outpatient (CLI) | payer MEDICARE, MEDICAID, SELFPAY ==
[2018-05-13 15:10] VITALS: BMI 34.7
--- NOTE | 2018-06-01 11:16 | ECHOD_ITS ---
Reason For Study: DYSPNEA/SOB Procedure This was a 2D Doppler, Color Flow transthoracic echocardiogram. The exam was of adequate technical quality. Exam performed in department. Left Ventricle Normal LV size. Left ventricular systolic function is normal. The estimated ejection fraction is 60 %. No evidence for diastolic dysfunction. No regional wall motion abnormalities noted. Right Ventricle Normal RV size. Normal systolic function. Atria Normal left atrium. Normal right atrium. No doppler evidence for ASD. Mitral Valve There is no mitral annular calcification. Mild mitral valve prolapse, posterior leaflet. Trivial mitral valve insufficiency. Tricuspid Valve Normal tricuspid valve. Trivial tricuspid valve insufficiency. Right ventricular systolic pressure estimated to be 28 mmHg. Aortic Valve Trisinus/trileaflet aortic valve. Normal aortic valve. Pulmonic Valve The pulmonic valve is not well visualized. Trivial pulmonic valve insufficiency. Great Vessels Normal sized aortic root. Pericardium/Pleural No pericardial effusion. MMode/2D Measurements & Calculations LVIDd: 4.9 cm IVSd: 0.90 cm Ao root diam: 3.0 cm LVIDs: 3.2 cm LVPWd: 0.85 cm RVDd: 3.4 cm FS: 34.3 % LAV(MOD-bp): 40.8 ml LVAd ap4: 28.9 cm2 SV(MOD-sp4): 50.4 ml LAV(MOD-bp) Indexed: 22.4 ml/m2 EDV(MOD-sp4): 82.3 ml LAV(MOD-sp2): 50.2 ml EDV(sp4-el): 86.1 ml LAV(MOD-sp4): 25.8 ml LVAs ap4: 15.9 cm2 ESV(MOD-sp4): 31.9 ml ESV(sp4-el): 31.0 ml EF(MOD-sp4): 61.3 % EF(sp4-el): 64.1 % SV(sp4-el): 55.1 ml LA A4 area: 11.6 cm2 LA dimension(2D): 3.2 cm RA A4 area: 12.1 cm2 Time Measurements MV dec time: 0.20 sec Doppler Measurements & Calculations MV E max marvin: 84.2 cm/sec Lat Peak E' Marvin: 7.2 cm/sec Med Peak E' Marvin: 7.0 cm/sec MV A max marvin: 70.7 cm/sec E/E' lat: 11.7 E/E' med: 12.1 MV E/A: 1.2 Ao V2 max: 161.6 cm/sec LV V1 max: 100.1 cm/sec PA V2 max: 83.2 cm/sec Ao max P.4 mmHg LV V1 max P.0 mmHg TR max marvin: 248.1 cm/sec TR max P.6 mmHg Interpretation Summary Left ventricular systolic function is normal. The estimated ejection fraction is 60 %. Mild mitral valve prolapse, posterior leaflet Trivial mitral valve insufficiency. Trivial tricuspid valve insufficiency. Trivial pulmonic valve insufficiency. Right ventricular systolic pressure estimated to be 28 mmHg. No evidence for diastolic dysfunction. Ordering Physician: Greg Austin Referring Physician: MANAS BROCK Performed By: Zaira Bull RDCS
[2018-06-01 11:17] LABS: Absolute Lymphocyte Count 1.39 X10^3/ul (0.83-4.51); Basophil# 0.03 X10^3/uL; Basophil% 0.8 % (0-1); Eosinophil# 0.08 X10^3/uL; Eosinophils% 2.2 % (0-5); Hematocrit 41.6 % (37-47); Hemoglobin 13.3 g/dl (12.0-15.0); Lymphocyte # 1.39 X10^3/ul (4.0); Lymphocyte % 37.6 % (19-41); Mean Corpuscular Hgb 28.4 pg (27.0-32.0); Mean Corpuscular Volume 88.7 fL (81-99); Mean Platelet Vol. 11.6 fl (6.2-12.0); Monocyte# 0.25 X10^3/uL; Monocyte% 6.8 % (0-10); Neutrophil # 1.95 X10^3/uL (2.7-7.7); Neutrophil % 52.6 % (47-70); Platelet Count 197 K/mm3 (150-450); RBC Distribution Width SD 38.6 fl (35.1-43.9); Red Blood Count 4.69 M/mm3 (4.2-5.4); White Blood Count 3.7 K/mm3 (4.4-11.0)
[2018-06-01 11:18] LABS: POSITIVE COUNT NO; POSITIVE DIFFERENTIAL NO; POSITIVE MORPHOLOGY NO
[2018-06-01 11:21] LABS: Prothrombin Time (Protime)PT. 13.3 SECONDS (11.7-14.9)
[2018-06-01 11:22] LABS: Partial Thromboplast Time 28.8 Seconds (24.1-36.2)
[2018-06-01 11:37] LABS: Anion Gap 5 (5-15); BUN 7 mg/dL (7-18); BUN/Creat Ratio 7.3 RATIO (10-20); Calcium,Total 8.6 mg/dL (8.5-10.1); Chloride 108 mmol/L (98-107); Creatinine, Serum 0.95 mg/dL (0.55-1.02); EST Glomerular Filtration Rate 64 mL/min (>60); Est Glom Filt Rate - Afr Amer 77 mL/min (>60); Glucose 101 mg/dL (74-106); Potassium 3.7 mmol/L (3.5-5.1); Sodium Level 140 mmol/L (136-145)
== END ==
PROVIDERS: Family Provider Family Medicine; PCP Family Medicine; Referring Provider Internal Medicine Cardiovascular Disease; Visit Provider Internal Medicine Cardiovascular Disease
DX: R06.02 Shortness of breath (principal); I10 Essential (primary) hypertension; I20.9 Angina pectoris, unspecified
CPT/HCPCS: 36415; 80048; 85025; 85610; 85730; 93306

== ENCOUNTER 2018-06-08 07:57 | Day surgery (SDC) | payer MEDICARE, MEDICAID, SELFPAY ==
[2018-05-13 15:10] VITALS: BMI 34.7
--- NOTE | 2018-06-01 11:55 | RAD_ITS ---
STUDY: X-RAY CHEST REASON FOR EXAM: Female, 58 years old. Shortness of breath. TECHNIQUE: Frontal and lateral views of the chest. COMPARISON: 05/31/2016. FINDINGS: The lungs are clear and expanded. There is no demonstrated pleural abnormality. Normal size heart. Normal mediastinum and damian. Normal visualized pulmonary arteries. Normal visualized aortic arch and descending thoracic aorta. Normal visualized thoracic spine. Normal visualized ribs, clavicles, and shoulders. There is no demonstrated abnormality of the visualized soft tissue structures of the upper abdomen. RAD/Chest PA and Lateral IMPRESSION: Normal x-ray examination of the chest. Electronically Signed: Neo Dalton MD at 15:35 EDT , Service support ,
[2018-06-07 09:10] VITALS: BMI 34.7
--- NOTE | 2018-06-08 10:14 | CL.D_ITS ---
Patient Name: ANEUDY BERMUDEZ Study Date: 06/08/2018 Performing: Greg Austin MD Ht: 61.02 inches 155 cm : 1960 Wt: 182.98 lbs 83 kg Age: 58 Gender: female BSA: 1.82 PROCEDURE(S) PERFORMED [id number]/LV CLINICAL PROFILE AND INDICATIONS Indications: Suspected CAD Heart Failure: None Stress/Imaging Standard Exercise Stress Test: Yes Result: Positive Angina Classification Anginal Classification w/in 2 Weeks: CCS III CAD Presentations: Other: Chest pain CONCLUSIONS Normal Left Ventricular End Diastolic Pressure Normal LV size, wall motion,and systolic function LVEF: by LV gram 65 % Normal coronary arteries RECOMMENDATIONS Risk factor modification Medical therapy Follow up with primary care physician DESCRIPTION OF PROCEDURE The patient arrived to the procedure lab. The risks and benefits of the procedure as well as a full d escription of our services here and current unavailability of surgical backup were fully explained to the patient and/or their significant other prior to the catheterization. The Timeout was completed, verifying the correct patient and procedure. The patient's procedural site was prepped and draped in the usual fashion. Local anesthetic was given subcutaneously to right radial region with Lidocaine 2% . Using a modified Seldinger technique, arterial access was obtained via the right radial artery, a 6 Fr sheath was inserted. Left Coronary Artery selective angiography was performed in multiple views u sing a 5 Fr. 4.0 Haiku catheter. Right Coronary Artery selective angiography was then performed in mu ltiple views using a 5 Fr. 4.0 Haiku catheter. Left Ventriculography was performed in CASAS projection using a 5 Fr. Pigtail catheter. LV to AO pullback pressures were then recorded.The arterial sheath was pulled and a TR Band was applied for hemostasis w/ 13ml air CORONARY ANGIOGRAPHY DOMINANCE: Right Dominant LEFT HEART ASSESSMENT Left Ventricular Ejection Fraction: by LV Gram 65 % Normal LV wall motion Normal Left Ventricular End Diastolic Pressure LVEDP: 10 mmHg LEFT MAIN: Angiographically normal LEFT ANTERIOR DECENDING ARTERY: Angiographically normal CIRCUMFLEX ARTERY: Angiographically normal RIGHT CORONARY ARTERY: Angiographically normal VALVE FINDINGS: Normal Aortic Valve function Normal Mitral Valve function AORTIC ROOT: Angiographically normal COMPLICATIONS No Complications PROCEDURE MEDICATIONS Versed 1 mg IV Fentanyl 50 mcg IV Fentanyl 50 mcg IV Versed 1 mg IV Oxygen: 2 L/min via nasal cannula Heparin diluted in 23cc Heparinized saline. Patient given 10cc IA of this solution. 06/08/2018 09:43: 10 Verapamil 2.5mg, Ntg 100mcgs, 2000 units of Heparin diluted in 23cc Heparinized saline. Patient give n 10cc IA of this solution. 06/08/2018 09:43:10 SUMMARY OF HEMODYNAMIC DATA Time AIR REST ECG 08:20:41 AO 111/67 (85) SA 09:44:24 LV 129/-3, 11 09:51:29 LV 124/-4, 10 09:51:36 LV 120/0, 12 09:52:44 LVp 122/-1, 12 09:52:50 AOp 127/66 (91) 09:52:55 Signed By Greg Austin MD On 06/08/2018 10:14:20 Greg Austin MD
== END 2018-06-08 13:07 | disposition home or self-care (01) ==
LOC: CLSP 07:58
PROVIDERS: Family Provider Family Medicine; PCP Family Medicine; Referring Provider Internal Medicine Cardiovascular Disease; Visit Provider Internal Medicine Cardiovascular Disease
DX: R07.89 Other chest pain (principal); I20.9 Angina pectoris, unspecified; R94.39 Abnormal result of other cardiovascular function study; R06.02 Shortness of breath; I10 Essential (primary) hypertension; E66.3 Overweight; Z68.34 Body mass index [BMI] 34.0-34.9, adult; Z79.82 Long term (current) use of aspirin; Z79.899 Other long term (current) drug therapy
CPT/HCPCS: 71046; 93458; 99152; 99153; J7040; C1769; C1894; Q9967

== ENCOUNTER 2018-10-07 21:25 | Emergency (ER) | payer MEDICARE, MEDICAID, SELFPAY ==
[2018-07-28 13:10] VITALS: BMI 34.2
[2018-10-07 21:30] VITALS: BP 163/92; PULSE 49; RESP 16; TEMP 37; O2SAT 97; BMI 35.6
[2018-10-07 21:36] VITALS: O2SAT 97
--- NOTE | 2018-10-07 21:36 | EKG12_ITS ---
Test Reason : CP Blood Pressure : / mmHG Vent. Rate : 050 BPM Atrial Rate : 050 BPM P-R Int : 140 ms QRS Dur : 090 ms QT Int : 470 ms P-R-T Axes : 046 -03 014 degrees QTc Int : 428 ms Sinus bradycardia Minimal voltage criteria for LVH, may be normal variant Borderline ECG Confirmed by PRATIK JOHNSON, FEDERICO ([id number]), brands editor ANDRES TOM ([id number]) on 10/11/2018 2:09:48 PM Referred By: ED PHYSICIAN Confirmed By:ALICIA CHRISTIE MD
--- NOTE | 2018-10-07 21:37 | RAD_ITS ---
HISTORY:PT C/O INTERMITTENT CHEST PAIN. PT C/O INTERMITTENT CHEST PAIN. EXAM: XR Chest 1 View: COMPARISON: June 01, 2018 FINDINGS: # of images incl. paperwork: 1 LINES/DEVICES: None. LUNGS: Radiographically clear. No consolidation, edema or effusion. No pneumothorax. MEDIASTINUM AND CARDIOVASCULAR STRUCTURES: Cardiac silhouette not enlarged. BONES AND SOFT TISSUES: Unremarkable. RAD/Chest 1 View (Portable) IMPRESSION: No radiographic evidence of acute cardiopulmonary disease. at 2154 Reported and signed by: Alana Haider DO Electronically Signed: Alana Haider DO at 21:53 EDT Tel , Service support ,
[2018-10-07 21:58] LABS: Absolute Lymphocyte Count 1.48 X10^3/uL (0.83-4.51); Basophil# 0.03 X10^3/uL; Basophil% 0.4 % (0-1); Eosinophil# 0.15 X10^3/uL; Eosinophils% 2.1 % (0-5); Hematocrit 38.2 % (37-47); Hemoglobin 12.8 g/dL (12.0-15.0); Lymphocyte # 1.48 X10^3/ul (4.0); Lymphocyte % 20.7 % (19-41); Mean Corp Hgb Conc 33.5 g/dL (32-36); Mean Corpuscular Hgb 29.4 pg (27.0-32.0); Mean Corpuscular Volume 87.6 fL (81-99); Mean Platelet Vol. 11.6 fl (6.2-12.0); Monocyte# 0.48 X10^3/uL; Monocyte% 6.7 % (0-10); NRBC Flagged by Analyzer 0 % (0-5); Neutrophil # 4.99 X10^3/uL (2.7-7.7); Neutrophil % 69.7 % (47-70); Platelet Count 191 K/mm3 (150-450); RBC Distribution Width CV 11.5 % (11.6-14.6); RBC Distribution Width SD 37.2 fl (35.1-43.9); Red Blood Count 4.36 M/mm3 (4.2-5.4); White Blood Count 7.2 K/mm3 (4.4-11.0)
[2018-10-07 22:15] LABS: Anion Gap 6 (5-15); BUN 10 mg/dL (7-18); BUN/Creat Ratio 12.5 RATIO (10-20); Calcium,Total 8.8 mg/dL (8.5-10.1); Chloride 108 mmol/L (98-107); EST Glomerular Filtration Rate 78 mL/min (>60); Est Glom Filt Rate - Afr Amer 95 mL/min (>60); Estimated Creatinine Clearance 57.84 ml/min; Glucose 154 mg/dL (74-106); Potassium 3.5 mmol/L (3.5-5.1); Sodium Level 140 mmol/L (136-145)
[2018-10-07 22:50] VITALS: BP 160/86; PULSE 67; RESP 19; O2SAT 96
[2018-10-07 23:00] VITALS: BP 107/82; PULSE 67; RESP 17; O2SAT 97
[2018-10-08] VITALS: BP 135/76; PULSE 56; RESP 13; O2SAT 96
--- NOTE | 2018-10-08 00:24 | ED.RN ---
PT DOES NOT WANT TO STAY FOR REPEAT TROPONIN. DR. PARKINSON AWARE.
--- NOTE | 2018-10-08 01:17 | ED.DEP ---
ED Disposition - Plan for ED Patient: Instructions: CHEST PAIN, Uncertain Cause Referrals: Jaylon Jenkins DO [Primary Care Provider] -
--- NOTE | 2018-10-08 01:31 | ED.DCSUM_ITS ---
- ER Visit Summary Date of Service: 10/08/18 Chief Complaint: Chest pain History of Present Illness: The patient is a 58 F presenting with chest pain. She states this started around 5 PM. Pain has been intermittent lasting 5 to 10 minutes. She states it is currently mild. She does not recall anything that makes this better or worse. She has mild associated shortness of breath. She also complains of palpitations. She denies fever. She denies PE/DVT risk factors. She was concerned about her blood pressure at home. She had a cardiac cath June 08, 2018 which showed normal coronaries. Physical Examination: Vitals are stable. Patient is afebrile. Alert no acute distress. HEENT exam is unremarkable. Neck is supple. Lungs are clear and equal bilaterally. Heart is regular rate and rhythm. Abdomen is soft nontender nondistended. Extremities are unremarkable. Skin is warm and dry. No focal neurologic deficit. Remainder of exam is unremarkable. Emergency Department Course and Treatment: EKG shows sinus bradycardia no acute ischemic changes. Chest x-ray shows no acute process. CBC, chemistries unremarkable. Troponin is negative. Delta troponin is negative. Patient remains comfortable in the emergency department. She will follow-up with her primary care physician. Advised return to ED for worsening complaints. Disposition: Discharge home Impression: Atypical chest pain This note was generated with Raydiance dictation software. It may contain incorrect words, spelling, and punctuation that were not noted in review of the chart prior to signing ED Disposition - Plan for ED Patient: Instructions: CHEST PAIN, Uncertain Cause Referrals: Jaylon Jenkins DO [Primary Care Provider] -
[2018-10-08 01:40] VITALS: BP 163/90; PULSE 59; RESP 18; O2SAT 97
--- NOTE | 2018-10-08 01:41 | ED.RN ---
PT GIVEN WRITTEN AND VERBAL DISCHARGE INSTRUCTIONS. PT EDUCATED ON CARE AND FOLLOW UP. PT VERBALIZES UNDERSTANDING AND DENIES ANY FURTHER QUESTIONS. PT IV D/C AND COVERED WITH 2X2 GAUZE AND PAPER TAPE.
== END 2018-10-08 01:43 | disposition home or self-care (01) ==
LOC: ED 22:21
PROVIDERS: Emergency Provider Emergency Medicine; Family Provider Family Medicine; PCP Family Medicine
DX: R07.89 Other chest pain (principal); I10 Essential (primary) hypertension; Z79.82 Long term (current) use of aspirin; Z79.899 Other long term (current) drug therapy
CPT/HCPCS: 71045; 80048; 84484; 85025; 93005; 99285; J7030; A4216

== ENCOUNTER → 2019-01-10 | Outpatient (CLI) | payer MEDICARE, MEDICAID, SELFPAY ==
[2019-01-03 08:36] VITALS: BMI 34.9
[2019-01-10 12:52] VITALS: PULSE 57; PULSE 60; PULSE 73; PULSE 77; PULSE 78; PULSE 79; O2SAT 100; O2SAT 98; O2SAT 99
--- NOTE | 2019-01-10 13:23 | PCM.PSN.6M ---
PSN 6 Minute Walk Test - 6 Minute Walk Test 6 Minute Walk Test: 6 Minute Walk Test PSN:6-Minute Walk Test Start: 01/10/19 12:51 Freq: Status: Active Protocol: [id number].6MINW Document 01/10/19 12:52 [facility] (Rec: 01/10/19 12:55 [facility] [id number]) 6 Minute Walk Test Date Performed 01/10/19 Time Performed 12:30 Height 5 ft 1 in Weight: 83.915 kg Weight in Pounds 185.[address]: Mendoza Casiano Assistive device used: None Pre-test Oxygen Delivery Method Room Air Pulse Ox (%) 99 Pulse Rate (60-100 beats/min) 57 L Dyspnea Leana Scale (0-10) 3 Reported Symptoms Increased Work of Breathing 1st minute Oxygen Delivery Method Room Air Pulse Ox (%) 99 Pulse Rate (60-100 beats/min) 77 Dyspnea Leana Scale (0-10) 3 Number of Rests Taken 0 Reported Symptoms Increased Work of Breathing 2nd minute Oxygen Delivery Method Room Air Pulse Ox (%) 100 Pulse Rate (60-100 beats/min) 79 Dyspnea Leana Scale (0-10) 4 Number of Rests Taken 0 Reported Symptoms Increased Work of Breathing 3rd minute Oxygen Delivery Method Room Air Pulse Ox (%) 98 Pulse Rate (60-100 beats/min) 79 Dyspnea Leana Scale (0-10) 4 Number of Rests Taken 0 Reported Symptoms Increased Work of Breathing 4th minute Oxygen Delivery Method Room Air Pulse Ox (%) 99 Pulse Rate (60-100 beats/min) 77 Dyspnea Leana Scale (0-10) 4 Number of Rests Taken 0 Reported Symptoms Increased Work of Breathing 5th minute Oxygen Delivery Method Room Air Pulse Ox (%) 98 Pulse Rate (60-100 beats/min) 78 Dyspnea Leana Scale (0-10) 4 Number of Rests Taken 0 Reported Symptoms Increased Work of Breathing 6th minute Oxygen Delivery Method Room Air Pulse Ox (%) 99 Pulse Rate (60-100 beats/min) 73 Dyspnea Leana Scale (0-10) 4 Number of Rests Taken 0 Reported Symptoms Increased Work of Breathing Post-test Oxygen Delivery Method Room Air Pulse Ox (%) 100 Pulse Rate (60-100 beats/min) 60 Dyspnea Leana Scale (0-10) 3 Reported Symptoms Increased Work of Breathing Full Laps Walked 14 Partial Lap, Number of Tiles Walked 10 Total Distance Walked (ft) 836 - Interpretation Interpretation: The patient was able to ambulate 836 feet over the course of 6 minutes on room air with no assistive devices or breaks. The patient experienced no significant desaturation or tachycardia. These findings are consistent with a musculoskeletal limitation exercise tolerance. - Recommendations Recommendations: No supplemental oxygen is indicated at this time.
== END | disposition home or self-care (01) ==
LOC: PSN 12:32
PROVIDERS: Family Provider Family Medicine; PCP Family Medicine; Referring Provider Internal Medicine Critical Care Medicine; Visit Provider Internal Medicine Critical Care Medicine
DX: R06.02 Shortness of breath (principal)
CPT/HCPCS: 94618

== ENCOUNTER → 2019-02-01 10:57 | Outpatient (CLI) | payer MEDICARE, MEDICAID, SELFPAY ==
[2019-01-03 08:36] VITALS: BMI 34.9
--- NOTE | 2019-02-02 10:01 | PFT ---
INTRODUCTION: The patient is a 58-year-old female that presents for pulmonary function studies secondary to a diagnosis of shortness of breath. Respiratory therapy reports that the patient had difficulty meeting exhalation time on FVC prior to aerosol treatment. Bronchodilators were used during testing. INTERPRETATION: Forced expiration spirometry demonstrates no evidence of a large airways obstructive ventilatory defect. There was no significant response to aerosolized bronchodilators. Spirograms are of suboptimal quality and terminate prior to 6 seconds, likely underestimating FVC. Body plethysmography was performed and reveals lung volumes to be within normal limits. Diffusing capacity by single breath CO is also within normal limits. IMPRESSION: Normal spirometry, lung volumes and diffusing capacity.
== END ==
PROVIDERS: Family Provider Family Medicine; PCP Family Medicine; Referring Provider Internal Medicine Critical Care Medicine; Visit Provider Internal Medicine Critical Care Medicine
DX: R06.02 Shortness of breath (principal)
CPT/HCPCS: 94060; 94726; 94729

== ENCOUNTER → 2019-03-08 12:57 | Outpatient (CLI) | payer MEDICARE, MEDICAID, SELFPAY ==
[2019-02-02 06:16] VITALS: BMI 34.4
[2019-02-23 14:37] VITALS: BMI 34.5
--- NOTE | 2019-03-14 09:15 | BRONCHALL ---
Bronchoprovocation Challenge - Bronchoprovocation Challenge Bronchoprovocation Challenge: INTRODUCTION: The patient is a 58-year-old female that presents for bronchoprovocation challenge secondary to a diagnosis of shortness of breath. Respiratory therapy reports good patient effort and reproducible results. INTERPRETATION: Initial spirometry did not demonstrate any large airways obstructive ventilatory defect with preserved airflows throughout. The patient was then given progressively increasing doses of methacholine in a standardized fashion. At no point during testing did the patient's FEV1 fall to the threshold that would be considered indicative of a positive test. IMPRESSION: Negative methacholine challenge.
== END ==
PROVIDERS: Family Provider Family Medicine; PCP Family Medicine; Referring Provider Internal Medicine Critical Care Medicine; Visit Provider Internal Medicine Critical Care Medicine
DX: R06.02 Shortness of breath (principal)
CPT/HCPCS: 94070; 95070; J3490; J7674

== ENCOUNTER → 2019-03-23 10:29 | Outpatient (CLI) | payer MEDICARE, MEDICAID, SELFPAY ==
[2019-02-23 14:37] VITALS: BMI 34.5
[2019-03-11 09:22] VITALS: BMI 34.5
[2019-03-23 12:43] LABS: Cholesterol 240 mg/dL (200); High Density Lipoprotein 78 mg/dL; Triglycerides 97 mg/dL; Very Low Density Lipoprotein 19 mg/dL (5-40)
== END ==
PROVIDERS: Family Provider Family Medicine; PCP Family Medicine; Visit Provider Family Medicine
DX: I10 Essential (primary) hypertension (principal); R73.01 Impaired fasting glucose
CPT/HCPCS: 36415; 80061; 83036

== ENCOUNTER → 2019-08-26 13:22 | Outpatient (CLI) | payer MEDICARE, MEDICAID, SELFPAY ==
[2019-03-11 09:22] VITALS: BMI 34.5
== END ==
PROVIDERS: PCP Family Medicine; Visit Provider Family Medicine
DX: R73.01 Impaired fasting glucose (principal)
CPT/HCPCS: 36415; 83036

== ENCOUNTER 2020-11-15 01:13 | Emergency (ER) | payer MEDICARE, MEDICAID, SELFPAY ==
[2020-11-15 01:13] VITALS: PULSE 61; RESP 14; TEMP 36.4; O2SAT 98; BMI 35.9
[2020-11-15 01:18] VITALS: BP 247/103
--- NOTE | 2020-11-15 01:48 | CT_ITS ---
STUDY: CT ABDOMEN AND PELVIS WITH CONTRAST REASON FOR EXAM: Female, 60 years old. diffuse abd pain, back pain, nausea RADIATION DOSAGE (If Supplied By Facility): CTDIvol = ( 13.14 ) mGy, DLP = ( 1151.60 ) mGycm TECHNIQUE: Transaxial images were obtained from the dome of the diaphragm to the symphysis pubis without oral contrast. IV 100mL Isovue-370 was administered. Sagittal and coronal images were reconstructed. Individualized dose optimization techniques were used for this CT. COMPARISON: None. FINDINGS: The visualized lung bases are unremarkable. The visualized portions of the heart are within normal limits. Normal liver. Normal gallbladder and extrahepatic biliary system. Normal spleen. Normal pancreas. Normal bilateral adrenal glands. There is 2.5 cm cyst in the upper pole of the right kidney. Normal left kidney. Normal visualized stomach. Normal small intestine. Normal colon. There is non-visualization of the appendix. Normal abdominal aorta. Normal inferior vena cava. Normal retroperitoneum. Normal urinary bladder. Normal abdominal wall. Normal osseous structures. CT/Abdomen/Pelvis W IV Cont ONLY IMPRESSION: No acute abnormality of the abdomen and pelvis. Electronically Signed: Modesta Katz MD at 4:59 EDT Tel , Service support ,
--- NOTE | 2020-11-15 01:49 | ED.VIS.GI ---
HPI HPI - GI History of Present Illness Chief Complaint: Abd Pain Informant: patient Abdominal Pain/Flank Pain Onset: Hours (3-4) Context: Gradual Onset Timing: Continuous and Waxes and wanes Quality: Aching Location: Diffuse Current Severity: Moderate Maximum Severity: Severe Worsened by: Nothing Relieved by: Nothing; Not Relieved By Antacids Nausea/Vomiting/Emesis GI Symptom: Positive for Nausea; Negative for Vomiting Diarrhea/Melena/Hematochezia GI Symptom: Positive for Diarrhea (Off and on mild chronic); Negative for Melena and Hematochezia Associated Symptoms Associated Symptoms: Negative for Dysuria, Frequency and Hematuria Narrative Narrative: Patient states she had a fried fish sandwich and a milkshake and several hours later started feeling like she had pain from the bottom of her abdomen to the top, radiating straight through to the middle of her back, colicky, associated with nausea. She has not had prior cholecystectomy or history of any pancreatitis. She takes a baby aspirin but no anticoagulants. Prior similar symptoms: No PFSH PFS Medical History (Updated 11/15/20 @ 03:[address] Paco Orellana MD) Abnormal stress test Angina pectoris Diarrhea Essential hypertension Pancytopenia Signs and symptoms of anemia SOB (shortness of breath) on exertion Home Medications nitroglycerin 0.4 mg sublingual tablet 0.4 mg SUBLINGUAL Q5-15M PRN #90 tab 05/13/18 [Rx Last Taken Unknown] aspirin 81 mg tablet,delayed release 81 mg PO DAILY #30 tab 05/14/18 [Rx Last Taken 06/08/18] lisinopril 10 mg tablet 10 mg PO DAILY #30 tab 02/23/19 [Rx Last Taken Unknown] Allergy/AdvReac Type Severity Reaction Status Date / Time No Known Allergies Allergy Verified 03/11/19 14:05 Family History Mother Hypertension Heart disease Father Hypertension Heart disease Surgical History History of left heart catheterization (LHC) (~06/08/18) History of tonsillectomy Social History Smoking Status: Never smoker alcohol intake: never substance use type: does not use caffeine: Yes Type: carbonated beverages Number of servings: 2 ROS ROS ED Constitutional Constitutional ED: Denies chills or fever(s) Eyes Eyes: Denies change in vision or diplopia ENT ENT ED: Denies rhinorrhea or sore throat Cardiovascular Cardiovascular: Denies chest pain or palpitations Respiratory/Chest Respiratory/Chest: Denies cough or dyspnea Gastrointestinal Gastrointestinal: Reports abdominal pain and nausea; Denies diarrhea or vomiting Genitourinary Genitourinary ED: Denies dysuria or hematuria Musculoskeletal Musculoskeletal: Reports back pain; Denies neck pain Integumentary Denies abscess or rash Neurologic Neurologic: Denies headache(s), paresthesias or weakness Psychiatric Psychiatric: Denies anxiety or suicidal thoughts EXAM Physical Exam Const Vital Signs: 11/15/20 01:13 11/15/20 01:18 11/15/20 01:50 Temperature 97.5 F L Temperature Source Temporal Pulse Rate 61 Respiratory Rate 14 Blood Pressure 247/103 H 219/88 H Blood Pressure Mean 151 131 Pulse Ox 98 Oxygen Delivery Method Room Air 11/15/20 03:33 Temperature Temperature Source Pulse Rate Respiratory Rate 17 Blood Pressure Blood Pressure Mean Pulse Ox Oxygen Delivery Method Positive well nourished and well developed General Appearance ED: well developed and NAD HEENT Reports moist mucous membranes normocephalic and atraumatic Eyes PERRL and EOMs intact bilaterally Neck full ROM and supple Resp normal respiratory effort and clear to auscultation bilaterally Cardio regular rate, regular rhythm and no murmurs GI non-distended Auscultation: normoactive bowel sounds Palpation: soft and tender epigastric, LUQ, RUQ and other (no lower abd tenderness); Negative for guarding or rebound tenderness present Back/Spine no CVA tenderness General Back: other FROM Extremity normal to inspection General Extremety ED: Negative for edema, pulses abnormal or tenderness General Extremity: Negative for edema or pulses abnormal Neuro oriented x3, CN's II-XII intact bilaterally and no sensory deficits noted Sensorium / Orientation: awake and alert Motor Exam: strength 5/5 throughout Skin no rashes or lesions noted and no wounds MDM MDM MDM Narrative Medical decision making narrative: 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 Therefore obtained a CT of the abdomen and pelvis, in addition to blood work, she does have symptoms of biliary colic so I took the bedside ED screening ultrasound machine and did a bedside ultrasound of right upper quadrant. This was after she had morphine, and was feeling better. She has a large gallstone in her gallbladder without any gross thickening of the gallbladder wall, pericholecystic fluid, or significant gallbladder distention. She had a negative sonographic Ambriz's here. Given that her labs are within normal limits, and she is feeling better this is unlikely acute cholecystitis. We discussed foods to avoid while she is following up with surgery as an outpatient. All questions were answered at the bedside and she is comfortable with this overall plan we discussed reasons to return to the ER. Lab Data Attestation: I reviewed the patient's lab results. Labs: Laboratory Results - last 24 hr 11/15/20 11/15/20 11/15/20 02:05 02:05 02:14 WBC 5.8 RBC 4.73 Hgb 13.4 Hct 41.7 MCV 88.2 MCH 28.3 MCHC 32.1 RDW Std Deviation 38.3 RDW Coeff of [place] 11.9 Plt Count 216 MPV 11.7 Immature Gran % (Auto) 0.000 Neut % (Auto) 42.1 L Lymph % (Auto) 45.2 H [place] % (Auto) 8.7 Eos % (Auto) 3.1 Baso % (Auto) 0.9 Absolute Neuts (auto) 2.5 Absolute Lymphs (auto) 2.64 Nucleated RBC % 0 Sodium 138 Potassium 3.6 Chloride 105 Carbon Dioxide 29.0 Anion Gap 4 L BUN 12 Creatinine 0.88 Estim Creat Clear Calc 53.77 Est GFR (MDRD) Af Amer 85 Est GFR (MDRD) Non-Af 70 BUN/Creatinine Ratio 13.7 Glucose 148 H Calcium 9.5 Total Bilirubin 0.40 AST 17 ALT 20 Alkaline Phosphatase 120 H Total Protein 8.0 Albumin 3.7 Globulin 4.3 H Albumin/Globulin Ratio 0.9 Lipase 202 Urine Color Straw Urine Clarity Clear Urine pH 6.5 Ur Specific [place] 1.010 Urine Protein Negative Urine Glucose (UA) Normal Urine Ketones Negative Urine Occult Blood 10 H Urine Nitrite Negative Urine Bilirubin Negative Urine Urobilinogen Normal Ur Leukocyte Esterase 25 H Urine RBC 0 SEEN Urine WBC 0 SEEN Ur Squamous Epith Cells 0 SEEN Urine Bacteria 0 SEEN Urine Mucus 0 SEEN Radiography Diagnostic Testing: Radiology Impression Abdomen/Pelvis CT 11/15/20 01:48 IMPRESSION: No acute abnormality of the abdomen and pelvis. Electronically Signed: Modesta Katz MD at 4:59 EDT Tel , Service support , Discharge Plan Triage Chief Complaint: Abd Pain ED Provider: Paco Orellana Dx/Rx/DC Orders Clinical Impression: Biliary colic, Cholelithiasis Instructions: ED Gallstones with Biliary Colic Prescriptions: No Action nitroglycerin 0.4 mg tablet, sublingual 0.4 mg SUBLINGUAL Q5-15M PRN (Reason: chest pain) Qty: 90 RF: 3 lisinopril 10 mg tablet 10 mg PO DAILY Qty: 30 RF: 11 aspirin [Adult Aspirin Regimen] 81 mg tablet,delayed release (DR/EC) 81 mg PO DAILY Qty: 30 RF: 11 Primary Care Provider: Jaylon Jenkins Referrals: Gagandeep Brown MD [STAFF PHYSICIAN] - As soon as possible (call for appt) Jaylon Jenkins DO [Primary Care Provider] - Disposition Disposition: Home, Self Care
[2020-11-15 01:50] VITALS: BP 219/88
[2020-11-15] MEDS: Morphine 4 MG/ML Syringe IV (02:06)
[2020-11-15] MEDS: 0.9% Normal Saline 1,000 ML 1000 ML IV (02:07)
[2020-11-15] MEDS: Ondansetron 4 MG/2 ML Vial IV (02:07)
[2020-11-15 02:15] LABS: Absolute Lymphocyte Count 2.64 X10^3/uL (0.83-4.51); Absolute Neutrophil Count 2.5 X10^3/uL (2.0-7.7); Basophil# 0.05 X10^3/uL; Basophil% 0.9 % (0-1); Eosinophil# 0.18 X10^3/uL; Eosinophils% 3.1 % (0-5); Hematocrit 41.7 % (37-47); Hemoglobin 13.4 g/dL (12.0-15.0); Lymphocyte # 2.64 X10^3/ul (0.83-4.51); Lymphocyte % 45.2 % (19-41); Mean Corp Hgb Conc 32.1 g/dL (32-36); Mean Corpuscular Hgb 28.3 pg (27.0-32.0); Mean Corpuscular Volume 88.2 fL (81-99); Mean Platelet Vol. 11.7 fl (6.2-12.0); Monocyte# 0.51 X10^3/uL; Monocyte% 8.7 % (0-10); NRBC Flagged by Analyzer 0 % (0-5); Neutrophil # 2.46 X10^3/uL (2.7-7.7); Neutrophil % 42.1 % (47-70); Platelet Count 216 K/mm3 (150-450); RBC Distribution Width CV 11.9 % (11.6-14.6); RBC Distribution Width SD 38.3 fl (35.1-43.9); Red Blood Count 4.73 M/mm3 (4.2-5.4); White Blood Count 5.8 K/mm3 (4.4-11.0)
[2020-11-15 02:20] LABS: Bacteria 0 SEEN /hpf (None Seen); Mucous, Urine 0 SEEN /hpf (<or=2+); Red Blood Cells-Urine 0 SEEN /hpf (0-5); Squamous Epithelial Cells - UA 0 SEEN /hpf (5-10); White Blood Cells 0 SEEN /hpf (0-5)
[2020-11-15 02:21] LABS: Color, Urine Straw (Yellow); Glucose, Dipstick Normal (Normal); Ketone-Dipstick Negative (Negative); Leukocyte Esterase-Dipstick 25 /ul (Negative); Nitrite-Dipstick Negative (Negative); Occult Blood-Urine 10 /ul (Negative); Protein-Dipstick Negative (Negative); Urine Bilirubin Dipstick Negative (Negative); Urine Clarity Clear (Clear); Urine Urobilinogen Normal (Normal); Urine pH 6.5 (5.0 - 8.0)
[2020-11-15 02:38] LABS: ALB/GLOB Ratio 0.9 RATIO (0.9-2.4); AST(SGOT) 17 U/L (15-37); Alanine Aminotransfer ALT/SGPT 20 U/L (13-56); Albumin, Serum 3.7 g/dL (3.2-5.0); Alkaline Phosphatase 120 U/L (45-117); Anion Gap 4 (5-15); BUN 12 mg/dL (7-18); BUN/Creat Ratio 13.7 RATIO (10-20); Calcium,Total 9.5 mg/dL (8.5-10.1); Chloride 105 mmol/L (98-107); Creatinine, Serum 0.88 mg/dL (0.55-1.02); EST Glomerular Filtration Rate 70 mL/min (>60); Est Glom Filt Rate - Afr Amer 85 mL/min (>60); Estimated Creatinine Clearance 53.77 ml/min; Globulin 4.3 g/dL (2.2-4.2); Glucose 148 mg/dL (74-106); Lipase 202 U/L (73-393); Potassium 3.6 mmol/L (3.5-5.1); Sodium Level 138 mmol/L (136-145)
[2020-11-15 03:33] VITALS: RESP 17
[2020-11-15 05:08] VITALS: BP 161/89; PULSE 78; RESP 16
== END 2020-11-15 05:08 | disposition home or self-care (01) ==
PROVIDERS: Emergency Provider Emergency Medicine; PCP Family Medicine
DX: K80.70 Calculus of gallbladder and bile duct without cholecystitis without obstruction (principal); I10 Essential (primary) hypertension; Z79.82 Long term (current) use of aspirin; Z79.899 Other long term (current) drug therapy
CPT/HCPCS: 74177; 80053; 81001; 83690; 85025; 96374; 96375; 99283; J7030; Q9967; A4216; J2405

== ENCOUNTER → 2020-11-23 09:33 | Outpatient (CLI) | payer MEDICARE, MEDICAID, SELFPAY ==
--- NOTE | 2020-11-23 09:35 | US_ITS ---
STUDY: ABDOMINAL ULTRASOUND - RIGHT UPPER QUADRANT REASON FOR VISIT: Female, 60 years old diffuse abdominal pain TECHNIQUE: Ultrasound evaluation of the right upper quadrant was performed with real-time and static sena-scale imaging. TECHNICAL QUALITY: Adequate. COMPARISON: None. FINDINGS: Liver: The liver measures 15.5 cm. There is normal echogenicity of the liver. The bile ducts are within normal limits. There is hepatic color flow. The direction of portal flow is hepatopetal. There is no demonstrated mass lesion. Gallbladder: Normal distended gallbladder. The gallbladder wall measures 3.1 mm. There is a negative sonographic Ambriz''s sign. There is no pericholecystic fluid. There are multiple echogenic structures within the gallbladder, consistent with multiple gallstones largest gallstone measures 1.8 cm. Common Bile Duct (C.B.D.): The common bile duct measures 4 mm. Pancreas: Normal size of the head, body and tail of the pancreas. There is normal echogenicity of the pancreas. There is no demonstrated pancreatic mass or cyst. Right Kidney: Normal size of the right kidney. The right kidney measures 10.6 x 5.8 x 3.5 cm. Normal renal cortex. The right cortex measures 1.2 cm. There is a simple 2.7 cm cyst. There is no right hydronephrosis. US/Gallbladder IMPRESSION: Cholelithiasis, no sonographic evidence of acute cholecystitis Simple right renal cyst, no specific follow-up needed Electronically Signed: Baljinder Aburto MD at 10:32 EDT , Service support ,
== END ==
PROVIDERS: PCP Family Medicine; Visit Provider Surgery
DX: R10.9 Unspecified abdominal pain (principal); R11.10 Vomiting, unspecified
CPT/HCPCS: 76705

== ENCOUNTER 2020-12-31 10:29 | Day surgery (SDC) | payer MEDICARE, MEDICAID, SELFPAY ==
--- NOTE | 2020-12-28 10:51 | EKG12_ITS ---
Test Reason : PREOP Blood Pressure : / mmHG Vent. Rate : 054 BPM Atrial Rate : 054 BPM P-R Int : 132 ms QRS Dur : 088 ms QT Int : 422 ms P-R-T Axes : 028 -05 017 degrees QTc Int : 400 ms Sinus bradycardia Otherwise normal ECG Confirmed by LUIS JOHNSON, BRODY ([id number]), editor producer ANDRES TOM ([id number]) on 01/01/2021 7:49:54 AM Referred By: Gagandeep Brown Confirmed By:BRODY SMITH MD
[2020-12-31] VITALS (11 sets, daily range): BP systolic 170–208; BP diastolic 80–106; PULSE 53–93; RESP 14–16; TEMP 36.3–36.9; O2SAT 94–100; BMI 32.1
--- NOTE | 2020-12-31 10:41 | HP.PCM_ITS ---
History and Physical Date of Admission: 12/31/20 Intake Vital Signs 11/21/20 09:49 11/21/20 10:07 Weight: 193 lb 6 oz BP 193/106 H 183/102 H Blood Pressure Location Rt brachial Rt brachial Position Sitting Sitting Respiration 20 H Pulse 56 L Pulse Source NIBP Temp 97.6 F L Temp Source Temporal Pulse Oximetry (%) 99 Oxygen Delivery Method room air Intake Visit Reasons: ER F/U GALLBLADDER 11/15 Chief Complaint: abd pain Recovery Specialist Required: No Is patient in pain?: No Allergies No Known Allergies Allergy (Verified 11/21/20 09:50) Medications nitroglycerin 0.4 mg sublingual tablet 0.4 mg SUBLINGUAL Q5-15M PRN #90 tab 05/13/18 [Rx Confirmed 11/21/20] aspirin 81 mg tablet,delayed release 81 mg PO DAILY #30 tab 05/14/18 [Rx Confirmed 11/21/20] lisinopril 10 mg tablet 10 mg PO DAILY #30 tab 02/23/19 [Rx Confirmed 11/21/20] Is last menstrual period known: No Post menopausal: Yes Patient : No PFSH Medical History Abnormal stress test Angina pectoris Diarrhea Essential hypertension Pancytopenia Signs and symptoms of anemia SOB (shortness of breath) on exertion Surgical History (Updated 11/21/20 @ 09:49 by Madelyn Oglesby) History of left heart catheterization (LHC) (~06/08/18) History of oral surgery History of tonsillectomy Family History Mother Hypertension Heart disease Father Hypertension Heart disease Social History Smoking Status: Never smoker alcohol intake: never substance use type: does not use caffeine: Yes Type: carbonated beverages Number of servings: 2 HPI HPI HPI: ANEUDY BERMUDEZ, is a 60 F who presents to the office today for pain. The patient had 2 episodes of abdominal pain which she says radiated to her entire abdomen. There was nausea but no vomiting. Patient says this happened after fried foods both times. She went to the emergency room and they performed an ultrasound which showed a gallstone but CT was normal. Patient has not had any this pain since seeing the ER doctor. ROS General General: No weight change, appetite, fatigue, colon cancer, breast cancer or weakness HEENT HEENT: No difficulty swallowing, eye injury, eye surgery, swollen glands or hoarseness Endo Endocrine: No thyroid disease, diabetes mellitus, thyroid cancer, Hair loss, heat intolerance or cold intolerance Cardio Cardiovascular: Yes high blood pressure; No murmur, pacemaker, heart disease, atrial fibrillation, heart attack, heart stent, palpitations, shortness of breat with exertion or chest pain Psych Psychiatric: No depression, anxiety or hearing voices Resp Respiratory: No shortness of breath, No sleep apnea, No cough, No COPD, No asthma, No emphysema and No wheezing Gastro Gastrointestinal: No abdominal pain, No nausea or vomiting, No diarrhea, No constipation, No blood in stool, No acid reflux, No hemorrhoids, No ulcers, No gallbladder problem and No black,tarry stools Yimi Hematologic: No blood thinners, No blood disorders, No bleeding, No anemia and No blood clots Neuro Neurologic: No weakness Exam Const General: cooperative Orientation: alert and oriented x3 HENMT Head: normal to inspection Neck Neck: normal visual inspection and full ROM Chest Chest palpation & inspection: normal inspection of the chest Resp Effort & Inspection: normal respiratory effort Auscultation: clear to auscultation bilaterally Cardio Rate: regular rate Rhythm: regular rhythm GI Inspection: non-distended Palpation: soft and nontender Skin General: no rashes or lesions noted Neuro General: patient alert and patient oriented x3 Extrem General: full ROM Psych Appearance: grossly normal Mental Status: mental status grossly normal Assessment and Plan Assessment and Plan (1) Biliary colic: Status: Acute Plan - Dr. Gagandeep Brown MD: The ultrasound was performed in the ER but no official read was given. Patient reports that she has gallstones and fried foods are causing her a lot of abdominal pain. I do recommend that she have laparoscopic cholecystectomy but at this time her blood pressure is severely elevated and she is out of her hypertension medication. I discussed the procedure in detail with the patient. I discussed the risks, benefits, and alternatives of the procedure. I discussed the risks including but not limited to bleeding, infection, injury to surrounding organs such as the liver, bile duct, bowels. I did discuss the possibility of having to convert to an open procedure as well as the possibility that if any injuries occurred this may necessitate further surgery at a tertiary care center. Before performing her laparoscopic cholecystectomy I will send her for an official ultrasound of her gallbladder confirmed the presence of stones and I will also have her see her PCP to start back on her hypertensive medication and control her blood pressure. I would also asked that she stop her aspirin 5 days prior to the procedure. After she sees her PCP and has ultrasound confirming presence of stones I will get her scheduled for laparoscopic cholecystectomy. Gagandeep Brown MD Pager: [facility] [address] [place] [address], [address] [place] [address] Office: I have re-examined the patient. There are no clinical changes since date of exam.
[2020-12-31] MEDS: Lactated Ringers 1,000 ML 100 ML IV (11:07)
--- NOTE | 2020-12-31 12:00 | GALL_PTH ---
PATIENT: ANEUDY BERMUDEZ LOC: [facility] [place] U#:[id number] AGE/SX: 60/F ROOM: RE12/31/[address]: Dr. Gagandeep Brown MD : 1960 BED: DIS: 12/31/2020 SPEC #: [id number] RECD: 12/31/20 15:13 STATUS: NICK REVishnu #: [id number] NESTOR: 12/31/20 12:[address]: Gagandeep Brown DEPT: SURGICAL PATHOLOGY RECD BY: Pradeep German ENTERED: 01/01/21 08:37 SP TYPE: AZUL MCKEON DR: Dr. Jaylon Jenkins DO Tissues: Gallbladder, NOS Procedures: Surgery Specimen Level III HEADER OPERATION: Laparoscopic cholecystectomy with IOC PRE-OP DIAGNOSIS: Biliary colic TISSUE SUBMITTED: Gallbladder MICROSCOPIC DIAGNOSIS Gallbladder, cholecystectomy: Cholesterolosis, chronic cholecystitis and cholelithiasis. AM:nidia 01/02/2021 MICROSCOPIC DESCRIPTION Slides are reviewed. GROSS DESCRIPTION Received is one container labeled with the patient's name and designated gallbladder. The specimen consists of a previously opened gallbladder measuring 6 cm in length and up to 2.5 cm in diameter. The external surface is pink-chilel, smooth and glistening for the most part. Focally it is granular, hemorrhagic and contains cautery artifact. No bile is identified. Present in the container are two mulberry, yellowish-orange stones measuring 1.3 and 1.5 cm in greatest dimension. The mucosa also shows several yellowish streaks consistent with cholesterolosis. The mucosa is bile-stained and without any mass lesions. The gallbladder wall measures up to 0.2 cm in thickness. Air Intercept Controller Supervisor sections from the gallbladder and the cystic duct are submitted in one cassette. / SJ:nidia 01/01/21 TC:3 CPT: 60390
[2020-12-31] MEDS: Bupivacaine 0.25% 30 ML Vial (12:02)
[2020-12-31] MEDS: Cefotetan 2 GM in 0.9% NS 100 ML IV (12:02)
--- NOTE | 2020-12-31 12:06 | RAD_ITS ---
STUDY: INTRAOPERATIVE CHOLANGIOGRAM. REASON FOR EXAM: Female, 60 years old. Laparoscopic cholecystectomy. FLUOROSCOPY TIME (if supplied): ( 10.7 seconds ) minutes/seconds. A cine run of 60 images was submitted. TECHNIQUE: Intraoperative Cholangiogram was performed by the surgeon. Imaging was submitted. COMPARISON: None. FINDINGS: The intrahepatic biliary ducts are unremarkable. The common bile duct is not dilated. No intraluminal filling defect is seen. There is free flow of contrast into the duodenum. RAD/Cholangiogram/ O R,Initial IMPRESSION: Unremarkable intraoperative cholangiogram. Electronically Signed: Simon Esqueda MD at 15:35 EDT , Service support ,
--- NOTE | 2020-12-31 12:45 | OP.PCM_ITS ---
Problems Associated Problem List Diagnoses (1) Cholelithiasis: (2) Biliary colic: Report of Operation Date of Procedure: 12/31/20 Pre-Operative Diagnosis: Cholelithiasis with biliary colic Post-Operative Diagnosis: Same Surgery/Procedure Performed:: Laparoscopic cholecystectomy with cholangiogram Specimen's removed: Gallbladder and contents Description of Procedure: After obtaining informed consent patient was brought back to the operating room. General anesthesia was induced. The abdomen was prepped and draped in usual sterile fashion. A small midline incision was made superior to the umbilicus and deepened to the level of fascia. The fascia was elevated and incised. Next the peritoneum was elevated and incised in the same fashion. Finger sweep was performed and the Byers trocar was placed into the abdomen. The balloon was inflated. The abdomen was inflated to 15 mmHg. Next a camera was introduced into the abdomen and the abdomen was inspected. Next under direct visualization three 5-mm ports were placed one subxiphoid and 2 subcostal. Next the gallbladder was elevated and retracted toward the right shoulder. The peritoneum was stripped from the gallbladder. The infundibulum was located and retracted laterally. Next the triangle of Calot was dissected and the cystic duct and cystic artery were identified. Cholangiograms were performed. The Woody clamp was used to clamp across the infundibulum and the catheter needle was inserted into the gallbladder. Under fluoroscopy contrast was instilled into the gallbladder and the common duct, cystic duct as well as proximal hepatic ducts were identified. There was good filling of the duodenum. There were no filling defects noted in the common bile duct. The clamp was rem timmy as well as the needle and the infundibulum was grasped once more. Three hemolock clips were placed across the cystic duct. The cystic duct was then divided leaving 2 clips on the stump. The cystic artery was clipped and divided in the same fashion. The hook cautery was then used to take the gallbladder off of the gallbladder bed. Hemostasis was obtained. Gallbladder fossa was irrigated and no active bleeding or bile leakage was noted. Next the camera was introduced in the subxiphoid port. An Endopouch bag was placed through the umbilical port and the gallbladder was placed into it. The gallbladder was then removed through the umbilical incision. The camera was then reinserted through the umbilical port. The gallbladder fossa was inspected once more and noted to be hemostatic with no leaking bile. The abdomen was suctioned dry. The 5 mm ports were removed under direct visualization. The umbilical port was then removed and the air was removed from the abdomen. Next using an 0 Vicryl suture the umbilical fascia was closed in a baekya-ls-antex fashion. The umbilical port site was irrigated local anesthetic was administered to all the incisions. All the incisions were closed with interrupted subcuticular 4-0 Monocryl sutures followed by Steri-Strips and dressings. The patient was awoken and taken to PACU in stable condition. Admit VTE Documentation VTE Mechan Device Prophylaxis: SCD's
--- NOTE | 2020-12-31 12:46 | EX.PCM.DISCH ---
Discharge Instructions Procedure Gallbladder Diet Discharge Diet: Light diet - advance as tolerated Activity Discharge Activity: May Not Drive (for 2-3 days or while taking narcotic pain medications.) and - (Do not drive, work heavy equipment or sign legal documents for 24 hours.) May shower in (days): 1 Lifting Restrictions: 20lbs for 2 weeks Additional Activity Instructions:: Pain medication may cause nausea. You should typically eat light foods as you take your pain medications. Pain medication may also cause constipation. If this is a problem for you, please discuss with your doctor. Dressing / Incision Call your doctor if your incision/area has: Continuous Slow Oozing, Sudden Increased Bleeding, Increased Pain/ Swelling, Increased Redness, Foul Smelling Discharge and Swelling at the incision site Call your doctor if you observe: Fever of 101 or Higher Suture Line Care: Avoid Pulling/Pushing and Avoid Pinching/Bending Remove Dressing in: 2 days Additional Dressing/Incision Instructions:: Leave operative bandaids on for 2 days. When you remove dressing, leave Steri-Strips on until your follow-up appointment, or until the Steri-Strips fall off on their own. Follow Up Care Please Follow Up With: Gagandeep Brown MD When: Please call to schedule 2 week follow up appointment. [phone] Test Results: Test results from this visit will be discussed in further detail at your follow-up appointment, if applicable. Discharge Plan Admission Attending Provider: Gagandeep Brown Primary Care Provider: Jaylon Jenkins Discharge Orders/Prescriptions Prescriptions: New oxycodone-acetaminophen [Percocet] 5-325 mg tablet 1 tab PO Q4H PRN (Reason: pain) 5 Days Qty: 20 RF: 0 No Action nitroglycerin 0.4 mg tablet, sublingual 0.4 mg SUBLINGUAL Q5-15M PRN (Reason: chest pain) Qty: 90 RF: 3 lisinopril 10 mg tablet 20 mg PO DAILY RF: 0 aspirin [Adult Aspirin Regimen] 81 mg tablet,delayed release (DR/EC) 81 mg PO DAILY Qty: 30 RF: 11 Referrals / Follow Up: Jaylon Jenkins DO [Primary Care Provider] - Disposition Disposition (needs filled in before D/C Order can be placed): Home, Self Care
[2020-12-31] MEDS: Acetaminophen 325 MG Tablet PO (15:34)
[2020-12-31] MEDS: oxyCODONE 5 MG Tablet PO (15:34)
== END 2020-12-31 16:33 | disposition home or self-care (01) ==
LOC: SDC 10:30 → AC 10:31
PROVIDERS: PCP Family Medicine; Referring Provider Surgery; Visit Provider Surgery
PROC: (CPT 47610; principal; 2020-12-31 11:40)
DX: K80.10 Calculus of gallbladder with chronic cholecystitis without obstruction (principal); I10 Essential (primary) hypertension; Z79.899 Other long term (current) drug therapy; Z79.82 Long term (current) use of aspirin
CPT/HCPCS: 00790; 47563; 74300; 76000; 87426; 88304; 93005; C9803; J7120; J2405

== ENCOUNTER 2021-01-24 17:03 | Emergency (ER) | payer MEDICARE, MEDICAID, SELFPAY ==
[2021-01-24 17:04] VITALS: BP 184/144; PULSE 62; RESP 16; TEMP 36.4; O2SAT 99; BMI 37.5
--- NOTE | 2021-01-24 17:22 | EX.ED.VIS.EY ---
HPI History of Present Illness Chief Complaint: Eye Problem Informant: patient Onset/Context/Timing Location: Right Eye Onset: Today Context: Sudden Onset Timing: Continuous Current Severity: Mild Maximum Severity: Mild Associated Symptoms History of injury: Yes and Direct trauma Visual correction: Glasses Narrative Narrative: 60-year-old female wears glasses no contacts takes a daily aspirin but no other blood thinners. Said she felt like her eye was itching today she rubbed it several times and thinks she caused it to bleed. She denies any visual change. She denies any other complaints. She has noticed no bruising or bleeding from anywhere else. Prior similar symptoms: No Recent Illness/Hospitalization: No PFSH PFSH Medical History Abnormal stress test Angina pectoris Cardiology follow-up encounter Complete edentulism, class III Diarrhea Essential hypertension History of echocardiogram History of stress test Non-smoker Pancytopenia Signs and symptoms of anemia SOB (shortness of breath) on exertion Wears glasses Home Medications nitroglycerin 0.4 mg sublingual tablet 0.4 mg SUBLINGUAL Q5-15M PRN #90 tab 05/13/18 [Rx Last Taken Unknown] aspirin 81 mg tablet,delayed release 81 mg PO DAILY #30 tab 05/14/18 [Rx Last Taken 06/08/18] lisinopril 20 mg PO DAILY 12/24/20 [History Last Taken 12/31/20 07:30] oxycodone-acetaminophen [Percocet] 1 tab PO Q4H PRN 5 Days #20 tab 12/31/20 [Rx Last Taken Unknown] Allergy/AdvReac Type Severity Reaction Status Date / Time No Known Allergies Allergy Verified 01/24/21 17:06 Family History Mother Hypertension Heart disease Father Hypertension Heart disease Surgical History History of left heart catheterization (LHC) (~06/08/18) History of oral surgery History of tonsillectomy S/P laparoscopic cholecystectomy Social History Smoking Status: Never smoker alcohol intake: never substance use type: does not use caffeine: Yes Type: carbonated beverages Number of servings: 2 ROS ROS ED ROS Narrative Denies recent illness. Review of Systems ROS Unobtainable: Denies due to encephalopathy Constitutional Constitutional ED: Denies fever(s) Eyes Eyes: Denies blurry vision, change in vision or diplopia ENT ENT ED: Denies ear pain Cardiovascular Cardiovascular: Denies chest pain Respiratory/Chest Respiratory/Chest: Denies dyspnea Gastrointestinal Gastrointestinal: Denies abdominal pain Genitourinary Genitourinary ED: Denies dysuria Musculoskeletal Musculoskeletal: Denies myalgias Integumentary Denies rash Neurologic Neurologic: Denies headache(s) Psychiatric Psychiatric: Denies depression Endocrine Endocrinology: Denies polyuria Hematologic/Lymphatic Hematologic/Lymphatic: Denies easy bruising Allergic/Immunologic Allergic/Immunologic ED: Denies urticaria EXAM Physical Exam Narrative Exam Narrative: 60-year-old female no acute distress vital signs stable initial blood pressure 184/144. That will be reevaluated. HEENT exam there is a reactive light extra motions intact. Patient has a large right subconjunctival hemorrhage that is about three quarters of her white of her eye. Pupils round reactive light motions are intact. No trauma no foreign body. No preauricular lymphadenopathy. Lungs are clear. Heart regular rate and rhythm. Otherwise exam unremarkable. Slit-lamp exam of the right eye shows no acute abnormality. On the bed no soft conjunctival hemorrhage. Fluorescein showed no foreign body and no corneal abrasion. Patient was instructed to hold her aspirin next several days she has appointment to see her diamond wheel molder tomorrow. Const Vital Signs: 01/24/21 17:04 Temperature 97.6 F L Temperature Source Temporal Pulse Rate 62 Respiratory Rate 16 Blood Pressure 184/144 H Blood Pressure Mean 157 Pulse Ox 99 Oxygen Delivery Method Room Air Positive well nourished, well developed and obese; Negative for cachectic, contractures or unkempt General Appearance ED: well developed and NAD; Negative for unkempt, cachectic or contractures Nutritional Appearance: obese; Negative for cachectic HEENT atraumatic Eyes Slit Lamp: slit lamp exam performed with fluorescein Neck no lymphadenopathy, supple and no JVD General: Negative for tenderness Resp normal respiratory effort and clear to auscultation bilaterally Cardio regular rate, regular rhythm, S1 normal heart sound, S2 normal heart sound and no murmurs GI non-tender and non-distended Auscultation: normoactive bowel sounds Palpation: soft Back/Spine no CVA tenderness Extremity normal to inspection General Extremety ED: Negative for edema or other findings General Extremity: Negative for edema or other findings Neuro oriented x3 and moves all extremities Sensorium / Orientation: alert, oriented to person, oriented to place and oriented to time; Negative for orientation impaired Psych Appearance: Negative for unkempt Attitude: No agitated Mood & Affect: Negative for depressed, anxious or tearful Skin no wounds Lesions: no lesions Rashes: no rashes MDM MDM MDM Narrative Medical decision making narrative: Patient with a right-sided subconjunctival hemorrhage of the right eye after rubbing it. Slit-lamp examination with fluorescein will be obtained. She does not wear contacts. She does wear glasses. She is never had eye surgery. Discharge Plan Triage Chief Complaint: Eye Problem ED Provider: Paolo Trevino Dx/Rx/DC Orders Clinical Impression: Subconjunctival hemorrhage of right eye Instructions: ED Subconjunctival Hemorrhage Prescriptions: No Action nitroglycerin 0.4 mg tablet, sublingual 0.4 mg SUBLINGUAL Q5-15M PRN (Reason: chest pain) Qty: 90 RF: 3 lisinopril 10 mg tablet 20 mg PO DAILY RF: 0 oxycodone-acetaminophen [Percocet] 5-325 mg tablet 1 tab PO Q4H PRN (Reason: pain) 5 Days Qty: 20 RF: 0 aspirin [Adult Aspirin Regimen] 81 mg tablet,delayed release (DR/EC) 81 mg PO DAILY Qty: 30 RF: 11 Primary Care Provider: Jaylon Jenkins Referrals: Jaylon Jenkins DO [Primary Care Provider] - Activity Restrictions/Additional Instructions: Cool compresses to your right eye. Do not rub it anymore. You may use your glasses. This will progressively get better it may get worse before it starts getting better it will take weeks for all the blood to resolve. Follow-up with your diamond wheel molder tomorrow. Disposition Disposition: Home, Self Care
--- NOTE | 2021-01-24 17:25 | ED.RN ---
THIS NURSE IN THE ROOM TO SPEAK WITH THE PT ABOUT WHAT IS OCCURRING IN THE ER ENTRANCE WITH HER . PER THE PT REQUEST, ASKED TO WAIT IN THE CAR.
[2021-01-24] MEDS: Fluorescein 1 MG STRIP 1 STRIP RIGHT EYE (17:44)
== END 2021-01-24 17:45 | disposition home or self-care (01) ==
PROVIDERS: Emergency Provider Emergency Medicine; PCP Family Medicine
DX: H11.31 Conjunctival hemorrhage, right eye (principal); E66.9 Obesity, unspecified
CPT/HCPCS: 99282

== ENCOUNTER 2021-06-03 10:26 | Outpatient (CLI) | payer MEDICARE, MEDICAID, SELFPAY ==
[2021-06-03 11:31] LABS: AST(SGOT) 19 U/L (15-37); Alanine Aminotransfer ALT/SGPT 23 U/L (13-56); Albumin, Serum 3.8 g/dL (3.2-5.0); Alkaline Phosphatase 131 U/L (45-117); Bilirubin, Direct 0.13 mg/dL (0.00-0.30); Cholesterol 264 mg/dL (200); High Density Lipoprotein 68 mg/dL; Protein, Total 7.8 g/dL (6.4-8.2); Triglycerides 162 mg/dL; Very Low Density Lipoprotein 32 mg/dL (5-40)
== END 2021-06-03 23:59 | disposition home or self-care (01) ==
LOC: LAB 10:28
PROVIDERS: PCP Family Medicine; Referring Provider Physician Assistant Medical; Visit Provider Physician Assistant Medical
DX: I10 Essential (primary) hypertension (principal); E78.5 Hyperlipidemia, unspecified
CPT/HCPCS: 36415; 80061; 80076

== ENCOUNTER 2021-10-07 08:45 | Emergency (ER) | payer MEDICARE, MEDICAID, SELFPAY ==
[2021-10-07 08:46] VITALS: BP 196/92; PULSE 79; RESP 18; TEMP 36.6; O2SAT 95; BMI 37.3
--- NOTE | 2021-10-07 09:02 | EKG12_ITS ---
Test Reason : gi Blood Pressure : / mmHG Vent. Rate : 076 BPM Atrial Rate : 076 BPM P-R Int : 146 ms QRS Dur : 082 ms QT Int : 402 ms P-R-T Axes : 055 -01 037 degrees QTc Int : 452 ms Normal sinus rhythm Normal ECG Confirmed by LEMUEL JOHNSON, CHAITANYA ([id number]), continuity editor ANDRES TOM ([id number]) on 10/10/2021 12:55:08 PM Referred By: Confirmed By:CHAITANYA HDEZ MD
--- NOTE | 2021-10-07 09:05 | EX.ED.DYSGE1 ---
HPI History of Present Illness Chief Complaint: General Illness Informant: patient Narrative Narrative: Patient is a 61-year-old female with history of hypertension,mild mitral valve prolapse, pancytopenia and hyperlipidemia presenting for generalized malaise. Patient states she felt a little under the weather yesterday and then around 10 PM last night started to hurt all over, feeling she was having a hard time breathing and developed a headache. She is complained of nausea with one episode of vomiting, cough productive of phlegm, low back pain and right-sided chest pain. She took aspirin earlier this morning while it was still dark out but does not feel any better. She states she did take her blood pressure medicine this morning. Denies any sick contacts. Denies any fever or urinary symptoms. Denies any vision changes. States that headache has been worsening and gradual in onset. She states it feels like her head is going to explode. Does report some associated sinus congestion. No other complaints at this time. [facility] Medical History Abnormal stress test Angina pectoris Cardiology follow-up encounter Complete edentulism, class III Diarrhea Essential hypertension History of echocardiogram History of stress test Non-smoker Pancytopenia Signs and symptoms of anemia SOB (shortness of breath) on exertion Wears glasses Home Medications nitroglycerin 0.4 mg sublingual tablet 0.4 mg sublingual Q5-15M PRN chest pain #90 tabs 05/13/18 [Rx Last Taken Unknown] atorvastatin 20 mg tablet 20 mg PO DAILY #90 tabs 06/03/21 [Rx Last Taken Unknown] lisinopril 20 mg tablet 20 mg PO DAILY #90 tabs 09/17/21 [Rx Last Taken Unknown] nirmatrelvir 300 mg (150 mg x2)-ritonavir 100 mg tablet,dose pack(EUA) (Paxlovid) See Rx Instructions PO .COMPLEX #30 tabs 10/07/21 [Rx Last Taken Unknown] nitrofurantoin monohydrate/macrocrystals 100 mg capsule (Macrobid) 100 mg PO Q12H 5 days #10 caps 10/07/21 [Rx Last Taken Unknown] ondansetron 4 mg disintegrating tablet 4 mg PO Q6H PRN nausea and vomiting #10 tabs 10/07/21 [Rx Last Taken Unknown] Allergy/AdvReac Type Severity Reaction Status Date / Time No Known Allergies Allergy Verified 09/17/21 13:51 Family History Mother Hypertension Heart disease Father Hypertension Heart disease Surgical History History of left heart catheterization (LHC) (~06/08/18) History of oral surgery History of tonsillectomy S/P laparoscopic cholecystectomy Social History Smoking Status: Never smoker alcohol intake: never substance use type: does not use caffeine: Yes Type: carbonated beverages Number of servings: 2 ROS ROS ED Constitutional Constitutional ED: Reports chills; Denies fever(s) Eyes Eyes: Denies blurry vision or change in vision ENT ENT ED: Reports other Details: nasal congestion ; Denies ear pain, rhinorrhea or sore throat Cardiovascular Cardiovascular: Reports chest pain; Denies orthopnea or palpitations Respiratory/Chest Respiratory/Chest: Reports cough and dyspnea; Denies dyspnea on exertion or orthopnea Gastrointestinal Gastrointestinal: Reports abdominal pain, nausea and vomiting; Denies constipation or diarrhea Genitourinary Genitourinary ED: Denies dysuria, hematuria or urinary frequency Musculoskeletal Musculoskeletal: Reports arthralgias, back pain, myalgias and neck pain Integumentary Denies rash Neurologic Neurologic: Reports headache(s); Denies paresthesias or weakness Psychiatric Psychiatric: Denies anxiety or depression EXAM Physical Exam Const Vital Signs: 10/07/21 08:46 10/07/21 09:09 10/07/21 11:04 Temperature 97.9 F 98.2 F Temperature Source Temporal Oral Pulse Rate 79 74 74 Respiratory Rate 18 30 H 21 H Blood Pressure 196/92 H 167/95 H 158/83 H Blood Pressure Mean 126 119 108 Pulse Ox 95 97 95 Oxygen Delivery Method Room Air Room Air Room Air 10/07/21 12:00 Temperature Temperature Source Pulse Rate 67 Respiratory Rate 15 Blood Pressure 136/74 H Blood Pressure Mean Pulse Ox 98 Oxygen Delivery Method Positive well nourished and well developed Constitutional Narrative: Patient looks like she does not feel well General Appearance ED: well developed and NAD HEENT Reports dry mucous membranes Negative for trauma or tenderness Mouth ED: Yes dry mucous membranes Mouth: dry mucous membranes Eyes PERRL and EOMs intact bilaterally Neck no lymphadenopathy, supple and no JVD Neck Narrative: No meningeal signs Chest Wall inspection of chest normal and palpation of chest normal Resp normal respiratory effort and clear to auscultation bilaterally Auscultation: Negative for rhonchi or wheezes Cardio regular rate, regular rhythm and no murmurs GI normal to inspection, nondistended, normoactive bowel sounds and non-tender Back/Spine no CVA tenderness Extremity normal to inspection General Extremety ED: Negative for edema or tenderness General Extremity: Negative for edema Neuro oriented x3, CN's II-XII intact bilaterally and no sensory deficits noted Motor Exam: general weakness Psych mental status grossly normal Mood & Affect: anxious Skin no rashes or lesions noted MDM MDM MDM Narrative Medical decision making narrative: Patient presents to the emergency room with multiple complaints that are consistent likely with a viral illness possibly COVID. Given she is having chest pain does have a history of hypertension hyperlipidemia also perform a cardiac work-up. We will treat with Zofran, IV fluids and IV fluids and reevaluate. Patient has positive for COVID. Hypertension improves without any further intervention. Patient is given Tylenol and then IV Toradol after her CBC and BMP come back unremarkable. Her CK is 65. Do not think she has rhabdomyolysis despite the myalgias. Urinalysis does show contamination as well as some inflammatory changes and her nitrites are negative. Urine culture sent and she started on Macrobid. First dose was given to the emergency room. She will be discharged home and she is not hypoxic, does not have pneumonia (has a normal chest x-ray on my interpretation as well as radiology) or signs of severe dehydration. She is counseled that while she does not feel well she is safe to go home. She is given return precautions. She is discharged home in stable condition. She is prescribed Paxlovid for her COVID infection especially as she is only on day 2 of symptoms. Lab Data Labs: Laboratory Results - last 24 hr 10/07/21 10/07/21 10/07/21 09:31 09:31 09:31 WBC 5.3 RBC 4.76 Hgb 14.1 Hct 41.6 MCV 87.4 MCH 29.6 MCHC 33.9 RDW Std Deviation 37.7 RDW Coeff of [place] 11.7 Plt Count 224 MPV 11.6 Immature Gran % (Auto) 0.600 Neut % (Auto) 84.0 H Lymph % (Auto) 7.2 L [place] % (Auto) 7.4 Eos % (Auto) 0.4 Baso % (Auto) 0.4 Absolute Neuts (auto) 4.5 Absolute Lymphs (auto) 0.38 L Nucleated RBC % 0 Differential Comment COMMENT Sodium 136 Potassium 3.6 Chloride 104 Carbon Dioxide 25.0 Anion Gap 7 BUN 9 Creatinine 0.91 Estim Creat Clear Calc 46.63 Est GFR (MDRD) Af Amer 81 Est GFR (MDRD) Non-Af 67 BUN/Creatinine Ratio 9.9 L Glucose 156 H Calcium 9.7 Total Bilirubin 0.80 AST 20 ALT 28 Alkaline Phosphatase 157 H Total Creatine Kinase 65 Troponin I High Sens 6 Total Protein 8.1 Albumin 3.9 Globulin 4.2 Albumin/Globulin Ratio 0.9 Lipase 89 Urine Color Urine Clarity Urine pH Ur Specific [place] Urine Protein Urine Glucose (UA) Urine Ketones Urine Occult Blood Urine Nitrite Urine Bilirubin Urine Urobilinogen Ur Leukocyte Esterase Urine RBC Urine WBC Ur Squamous Epith Cells Urine Bacteria Urine Mucus 10/07/21 10:30 WBC RBC Hgb Hct MCV MCH MCHC RDW Std Deviation RDW Coeff of [place] Plt Count MPV Immature Gran % (Auto) Neut % (Auto) Lymph % (Auto) [place] % (Auto) Eos % (Auto) Baso % (Auto) Absolute Neuts (auto) Absolute Lymphs (auto) Nucleated RBC % Differential Comment Sodium Potassium Chloride Carbon Dioxide Anion Gap BUN Creatinine Estim Creat Clear Calc Est GFR (MDRD) Af Amer Est GFR (MDRD) Non-Af BUN/Creatinine Ratio Glucose Calcium Total Bilirubin AST ALT Alkaline Phosphatase Total Creatine Kinase Troponin I High Sens Total Protein Albumin Globulin Albumin/Globulin Ratio Lipase Urine Color Yellow Urine Clarity Sl. Cloudy Urine pH 6.5 Ur Specific [place] 1.015 Urine Protein Negative Urine Glucose (UA) Normal Urine Ketones 5 H Urine Occult Blood 25 H Urine Nitrite Negative Urine Bilirubin Negative Urine Urobilinogen Normal Ur Leukocyte Esterase 100 H Urine RBC 0-5 SEEN Urine WBC 10-25 SEEN Ur Squamous Epith Cells 0-5 SEEN Urine Bacteria 1+ Urine Mucus 0 SEEN Radiography Diagnostic Testing: Clinical Impression(s) from Imaging Studies Chest X-Ray 10/07/21 10:35 IMPRESSION: No acute abnormality is seen. Electronically Signed: Simon Esqueda MD at 10:48 EDT , Rhythm Strip Rhythm Strip: Sinus Rhythm Rate: 76 Ectopy: None EKG Initial EKG: Attestation: I personally reviewed and interpreted this EKG as follows: Interpretation: Sinus Rhythm Comments: Normal sinus rhythm at a rate of 76 Normal axis Normal intervals Normal ST segments Discharge Plan Triage Chief Complaint: General Illness ED Provider: Zakia Moore Dx/Rx/DC Orders Clinical Impression: COVID-19, UTI (urinary tract infection), Malaise and fatigue, Myalgia Instructions: Coronavirus Disease 2019 (COVID-19): Caring for Yourself or Others, ED CYSTITIS Female Adult Prescriptions: New Paxlovid (EUA) 300 mg (150 mg x 2)-100 mg tablets,dose pack See Rx Instructions .ROUTE .COMPLEX Qty: 30 0RF Rx Instructions: take TWO 150 mg tablets of nirmatrelvir with ONE 100 mg tablet of ritonavir twice daily for 5 days nitrofurantoin monohyd/m-cryst [Macrobid] 100 mg capsule 100 mg PO Q12H 5 Days Qty: 10 0RF Rx Instructions: must administer with a meal/food ondansetron 4 mg tablet,disintegrating 4 mg PO Q6H PRN (Reason: nausea and vomiting) Qty: 10 0RF No Action nitroglycerin 0.4 mg tablet, sublingual 0.4 mg SUBLINGUAL Q5-15M PRN (Reason: chest pain) Qty: 90 3RF Rx Instructions: until response; do not exceed 3 doses per episode lisinopril 20 mg tablet 20 mg PO DAILY Qty: 90 3RF atorvastatin 20 mg tablet 20 mg PO DAILY Qty: 90 3RF Primary Care Provider: Jaylon Jenkins Referrals: Jaylon Jenkins DO [Primary Care Provider] - Activity Restrictions/Additional Instructions: Please do not take your lisinopril while you are on the antiviral medicine for COVID. These medications can interact. He can resume taking it once you finish the COVID medication. Drink lots of fluids. Alternate ibuprofen and Tylenol for your symptoms. Disposition Disposition: Home, Self Care Discharge Date/Time: 10/07/21 12:01
[2021-10-07 09:09] VITALS: BP 167/95; PULSE 74; RESP 30; O2SAT 97
[2021-10-07] MEDS: 0.9% Normal Saline 1,000 ML 1000 ML IV (09:41)
[2021-10-07] MEDS: Ondansetron 4 MG/2 ML Vial IV (09:42)
[2021-10-07] MEDS: Acetaminophen 500 MG Tablet 1000 MG PO (09:42)
[2021-10-07 09:44] LABS: Absolute Lymphocyte Count 0.38 X10^3/uL (0.83-4.51); Absolute Neutrophil Count 4.5 X10^3/uL (2.0-7.7); Basophil# 0.02 X10^3/uL; Basophil% 0.4 % (0-1); Eosinophil# 0.02 X10^3/uL; Eosinophils% 0.4 % (0-5); Hematocrit 41.6 % (37-47); Hemoglobin 14.1 g/dL (12.0-15.0); Lymphocyte # 0.38 X10^3/ul (0.83-4.51); Lymphocyte % 7.2 % (19-41); Mean Corp Hgb Conc 33.9 g/dL (32-36); Mean Corpuscular Hgb 29.6 pg (27.0-32.0); Mean Corpuscular Volume 87.4 fL (81-99); Mean Platelet Vol. 11.6 fl (6.2-12.0); Monocyte# 0.39 X10^3/uL; Monocyte% 7.4 % (0-10); NRBC Flagged by Analyzer 0 % (0-5); Neutrophil # 4.46 X10^3/uL (2.7-7.7); POSITIVE DIFFERENTIAL YES; Platelet Count 224 K/mm3 (150-450); RBC Distribution Width CV 11.7 % (11.6-14.6); RBC Distribution Width SD 37.7 fl (35.1-43.9); Red Blood Count 4.76 M/mm3 (4.2-5.4); White Blood Count 5.3 K/mm3 (4.4-11.0)
[2021-10-07 09:48] LABS: Differential Indicated SCAN CRITERIA MET
[2021-10-07 10:04] LABS: CPK Total, Creatine Kinase 65 U/L (26-192)
[2021-10-07 10:08] LABS: ALB/GLOB Ratio 0.9 RATIO (0.9-2.4); AST(SGOT) 20 U/L (15-37); Alanine Aminotransfer ALT/SGPT 28 U/L (13-56); Albumin, Serum 3.9 g/dL (3.2-5.0); Alkaline Phosphatase 157 U/L (45-117); Anion Gap 7 (5-15); BUN 9 mg/dL (7-18); BUN/Creat Ratio 9.9 RATIO (10-20); Calcium,Total 9.7 mg/dL (8.5-10.1); Chloride 104 mmol/L (98-107); Creatinine, Serum 0.91 mg/dL (0.55-1.02); EST Glomerular Filtration Rate 67 mL/min (>60); Est Glom Filt Rate - Afr Amer 81 mL/min (>60); Estimated Creatinine Clearance 46.63 ml/min; Globulin 4.2 g/dL (2.2-4.2); Glucose 156 mg/dL (74-106); Lipase 89 U/L (73-393); Potassium 3.6 mmol/L (3.5-5.1); Protein, Total 8.1 g/dL (6.4-8.2); Sodium Level 136 mmol/L (136-145); Troponin-I HS 6 pg/mL (3.0-54.0)
--- NOTE | 2021-10-07 10:35 | RAD_ITS ---
STUDY: X-RAY CHEST REASON FOR EXAM: Female, 61 years old. Cough, chest pain TECHNIQUE: PA and lateral views of the chest. COMPARISON: None. FINDINGS: EKG electrodes are seen. The lungs are clear and expanded. There is no demonstrated pleural abnormality. Normal size heart. Normal mediastinum and damian. Normal visualized pulmonary arteries. There is atherosclerotic calcification of the aortic arch with tortuosity. There are degenerative changes of the visualized thoracic spine. Normal visualized ribs, clavicles, and shoulders. There is no demonstrated abnormality of the visualized soft tissue structures of the upper abdomen. RAD/Chest PA and Lateral IMPRESSION: No acute abnormality is seen. Electronically Signed: Simon Esqueda MD at 10:48 EDT ,
[2021-10-07 10:36] LABS: Mucous, Urine 0 SEEN /hpf (<or=2+)
[2021-10-07 10:50] LABS: Color, Urine Yellow (Yellow); Glucose, Dipstick Normal (Normal); Ketone-Dipstick 5 mg/dl (Negative); Leukocyte Esterase-Dipstick 100 /ul (Negative); Nitrite-Dipstick Negative (Negative); Occult Blood-Urine 25 /ul (Negative); Protein-Dipstick Negative (Negative); Specific Gravity, Urine 1.015 (1.002-1.030); Urine Bilirubin Dipstick Negative (Negative); Urine Clarity Sl. Cloudy (Clear); Urine Urobilinogen Normal (Normal); Urine pH 6.5 (5.0 - 8.0)
[2021-10-07 11:04] VITALS: BP 158/83; PULSE 74; RESP 21; TEMP 36.8; O2SAT 95
[2021-10-07] MEDS: Ketorolac 15 MG/ML Vial IV (11:07)
[2021-10-07 11:12] LABS: Bacteria 1+ /hpf (None Seen); Red Blood Cells-Urine 0-5 SEEN /hpf (0-5); Squamous Epithelial Cells - UA 0-5 SEEN /hpf (5-10); White Blood Cells 10-25 SEEN /hpf (0-5)
[2021-10-07] MEDS: Nitrofurantoin Macrocrystals 100 MG Capsule PO (11:54)
[2021-10-07 12:00] VITALS: BP 136/74; PULSE 67; RESP 15; O2SAT 98
== END 2021-10-07 12:01 | disposition home or self-care (01) ==
PROVIDERS: Emergency Provider Emergency Medicine; PCP Family Medicine; Visit Provider Emergency Medicine
DX: U07.1 COVID-19 (principal); N39.0 Urinary tract infection, site not specified; R53.81 Other malaise; R53.83 Other fatigue; I10 Essential (primary) hypertension; Z79.899 Other long term (current) drug therapy
CPT/HCPCS: 71046; 80053; 81001; 82550; 83690; 84484; 85025; 87086; 87088; 87811; 93005; 96361; 96374; 96375; 99284; J7030; A4216; J2405

== ENCOUNTER → 2021-11-19 | Outpatient (CLI) | payer MEDICARE, MEDICAID, SELFPAY ==
--- NOTE | 2021-11-19 12:06 | EKG12_ITS ---
Test Reason : PREOP Blood Pressure : / mmHG Vent. Rate : 055 BPM Atrial Rate : 055 BPM P-R Int : 100 ms QRS Dur : 072 ms QT Int : 430 ms P-R-T Axes : 024 -03 012 degrees QTc Int : 411 ms Sinus bradycardia with short [place] Otherwise normal ECG Confirmed by LUIS JOHNSON, BRODY ([id number]), television news video editor RODRIGO CARDENAS ([id number]) on 11/20/2021 10:15:17 AM Referred By: Nithin Hassan Confirmed By:BRODY SMITH MD
[2021-11-19 13:48] LABS: Hematocrit 42.2 % (37-47); Hemoglobin 13.9 g/dL (12.0-15.0); Mean Corp Hgb Conc 32.9 g/dL (32-36); Mean Corpuscular Hgb 29.7 pg (27.0-32.0); Mean Corpuscular Volume 90.2 fL (81-99); Mean Platelet Vol. 11.8 fl (6.2-12.0); Platelet Count 240 K/mm3 (150-450); RBC Distribution Width SD 39.1 fl (35.1-43.9); Red Blood Count 4.68 M/mm3 (4.2-5.4); White Blood Count 5.2 K/mm3 (4.4-11.0)
[2021-11-19 13:54] LABS: Anion Gap 5 (5-15); BUN 7 mg/dL (7-18); BUN/Creat Ratio 7.6 RATIO (10-20); Calcium,Total 9.9 mg/dL (8.5-10.1); Chloride 106 mmol/L (98-107); Creatinine, Serum 0.92 mg/dL (0.55-1.02); EST Glomerular Filtration Rate 66 mL/min (>60); Est Glom Filt Rate - Afr Amer 80 mL/min (>60); Glucose 116 mg/dL (74-106); Potassium 4.7 mmol/L (3.5-5.1); Sodium Level 140 mmol/L (136-145)
== END | disposition home or self-care (01) ==
PROVIDERS: PCP Family Medicine; Referring Provider Otolaryngology; Visit Provider Otolaryngology
DX: Z01.818 Encounter for other preprocedural examination (principal)
CPT/HCPCS: 36415; 80048; 85027; 93005

== ENCOUNTER 2022-03-21 12:13 | Emergency (ER) | payer MEDICARE, MEDICAID, SELFPAY ==
[2022-03-21 12:14] VITALS: BP 179/83; PULSE 56; RESP 18; TEMP 36.6; O2SAT 98; BMI 44.9
--- NOTE | 2022-03-21 12:42 | EKG12_ITS ---
Test Reason : DIZZINESS Blood Pressure : / mmHG Vent. Rate : 055 BPM Atrial Rate : 055 BPM P-R Int : 136 ms QRS Dur : 086 ms QT Int : 434 ms P-R-T Axes : 034 -01 023 degrees QTc Int : 415 ms Sinus bradycardia Minimal voltage criteria for LVH, may be normal variant ( R in aVL ) Borderline ECG Confirmed by PRATIK JOHNSON, FEDERICO ([id number]), editorial cartoonist ANDRES TOM ([id number]) on 03/24/2022 10:57:53 AM Referred By: Confirmed By:ALICIA CHRISTIE MD
--- NOTE | 2022-03-21 12:42 | CT_ITS ---
STUDY: CT BRAIN WITHOUT CONTRAST REASON FOR EXAM: Female, 61 years old. Dizziness RADIATION DOSAGE (If Supplied By Facility): CTDIvol = ( 44.99 ) mGy, DLP = ( 812.98 ) mGycm TECHNIQUE: Transaxial CT imaging of the brain was performed without administration of intravenous contrast material. Individualized dose optimization techniques were used for this CT. COMPARISON: No relevant priors. FINDINGS: Normal soft tissue structures. There is hyperostosis frontalis internus. There is mild cerebral atrophy with widening of the extra-axial spaces and ventricular dilatation. There are areas of decreased attenuation within the white matter tracts of the supratentorial brain, consistent with microvascular disease changes. Normal basal ganglia and thalami. Normal brainstem. Normal cerebellum. There is no intracranial hemorrhage. There are no findings of an acute ischemic infarction. Normal visualized paranasal sinuses. CT/Brain/Head without Contrast IMPRESSION: Chronic involutional changes of the brain. Electronically Signed: Simon Esqueda MD at 13:14 EST ,
--- NOTE | 2022-03-21 12:43 | EDS_ITS ---
HPI History of Present Illness Chief Complaint: Dizziness Narrative Narrative: 61-year-old female past medical history of hypertension presents with dizziness and lightheadedness that she has had since yesterday. She states her symptoms began yesterday or somewhat intermittent., Today she awoke and have the same symptoms. Of note, she takes lisinopril 20 mg daily for her hypertension, but admittedly has not taken it over the last few months until yesterday when she had the dizziness and lightheadedness and then again today. She denies any chest pain or shortness of breath. No leg swelling, no other symptoms. She states that she feels like she probably should be taking lisinopril 20 mg twice a day, but can even remember to take it once a day because I just forget she states she is not used to taking medication. Additionally, she states she cannot take her blood pressure because she does not have a blood pressure cuff at home, and her insurance will not pay for it. Hence, she does not know what her blood pressure has been running. [facility] Medical History Abnormal stress test Angina pectoris Cardiology follow-up encounter Complete edentulism, class III Diarrhea Essential hypertension History of echocardiogram History of stress test Non-smoker Pancytopenia Signs and symptoms of anemia SOB (shortness of breath) on exertion Wears glasses Home Medications nitroglycerin 0.4 mg sublingual tablet 0.4 mg sublingual Q5-15M PRN chest pain #90 tabs 05/13/18 [Rx Last Taken Unknown] atorvastatin 20 mg tablet 20 mg PO DAILY #90 tabs 06/03/21 [Rx Last Taken Unknown] lisinopril 20 mg tablet 20 mg PO DAILY #90 tabs 09/17/21 [Rx Last Taken Unknown] nirmatrelvir 300 mg (150 mg x2)-ritonavir 100 mg tablet,dose pack(EUA) (Paxlovid) See Rx Instructions PO .COMPLEX #30 tabs 10/07/21 [Rx Last Taken Unknown] nitrofurantoin monohydrate/macrocrystals 100 mg capsule (Macrobid) 100 mg PO Q12H 5 days #10 caps 10/07/21 [Rx Last Taken Unknown] ondansetron 4 mg disintegrating tablet 4 mg PO Q6H PRN nausea and vomiting #10 tabs 10/07/21 [Rx Last Taken Unknown] Allergy/AdvReac Type Severity Reaction Status Date / Time No Known Allergies Allergy Verified 09/17/21 13:51 Family History Mother Hypertension Heart disease Father Hypertension Heart disease Surgical History History of left heart catheterization (LHC) (~06/08/18) History of oral surgery History of tonsillectomy S/P laparoscopic cholecystectomy Social History Smoking Status: Never smoker alcohol intake: never substance use type: does not use caffeine: Yes Type: carbonated beverages Number of servings: 2 ROS ROS ED ROS Narrative Constitutional: No fever, no chills. HEENT: No sore throat. No neck pain. No loss of vision. No rhinorrhea. Cardiovascular: No chest pain. No palpitations. No pedal edema. Respiratory: No cough, no shortness of breath. Abdominal: No abdominal pain. No nausea. No vomiting. Genitourinary: No dysuria. No hematuria. Musculoskeletal: No myalgias. No arthralgias. Neurologic: No headaches. Positive dizziness. Positive lightheadedness. Skin: No rash. No change in color. Psychiatric: No depression. No anxiety. EXAM Physical Exam Narrative Exam Narrative: Afebrile. Vital signs noted. HEENT: Normocephalic. Atraumatic. PERRL, EOMI. Neck soft and supple. No point tenderness or step off. Cardiovascular: Intermittent bradycardia. No murmurs, rubs, or gallops ap preciated. Respiratory: No tachypnea. Lungs clear to auscultation bilaterally. Gastrointestinal: Abdomen soft, nontender, with normoactive bowel sounds. No rebound or guarding. Neurological: Awake. Alert. Nonfocal, nonlateralizing. Skin: No rash. Normal color. No pallor. Musculoskeletal: No pedal edema. Full range of motion extremities. Const Vital Signs: 03/21/22 12:14 03/21/22 12:47 03/21/22 14:17 Temperature 98 F Temperature Source Temporal Pulse Rate 56 L Respiratory Rate 18 Respiratory Effort Normal Respiratory Pattern Normal Blood Pressure 179/83 H 160/87 H Blood Pressure Mean 115 111 Pulse Ox 98 Oxygen Delivery Method Room Air MDM MDM MDM Narrative Medical decision making narrative: Initial blood pressure is 179/83. She states she has already taken her lisinopril. She is already bradycardic. Given her dizziness and lightheadedness, to look for hypertensive encephalopathy versus hemorrhage, I will obtain CT imaging of her brain. Also, given her dizziness, I will obtain EKG to rule out STEMI. She was told that she needs to take her blood pressure medication daily and keep a log of her blood pressures when possible, even if it means going to the fire station to get a blood pressure check. EKG was obtained and interpreted by myself which shows sinus bradycardia at 55 bpm without ectopy or acute ST changes. No STEMI. CT of the brain was interpreted by myself initially which shows no acute hemorrhage, and I reviewed the radiologist impression and agree. Her blood pressure is now 160/87 without intervention. I told her that she needs to take her antihypertensive medication and if any changes need to be made that they should be done by her primary care physician and have her check her blood pressures when she can and keep a log of them. I feel she be discharged safely home with follow-up. Return instructions to the emergency department were reviewed. Disposition is discharged home in stable condition. Radiography Diagnostic Testing: Clinical Impression(s) from Imaging Studies Brain CT 03/21/22 12:42 IMPRESSION: Chronic involutional changes of the brain. Electronically Signed: Simon Esqueda MD at 13:14 EST , Discharge Plan Triage Chief Complaint: Dizziness ED Provider: Giuliano Killian Dx/Rx/DC Orders Clinical Impression: Dizziness, Essential hypertension, Light-headedness, Nonadherence to medication Instructions: ED Hypertension, Established, ED Near-Fainting, Uncertain Cause Prescriptions: No Action nitroglycerin 0.4 mg tablet, sublingual 0.4 mg SUBLINGUAL Q5-15M PRN (Reason: chest pain) Qty: 90 3RF Rx Instructions: until response; do not exceed 3 doses per episode lisinopril 20 mg tablet 20 mg PO DAILY Qty: 90 3RF Paxlovid (EUA) 300 mg (150 mg x 2)-100 mg tablets,dose pack See Rx Instructions .ROUTE .COMPLEX Qty: 30 0RF Rx Instructions: take TWO 150 mg tablets of nirmatrelvir with ONE 100 mg tablet of ritonavir twice daily for 5 days nitrofurantoin monohyd/m-cryst [Macrobid] 100 mg capsule 100 mg PO Q12H 5 Days Qty: 10 0RF Rx Instructions: must administer with a meal/food ondansetron 4 mg tablet,disintegrating 4 mg PO Q6H PRN (Reason: nausea and vomiting) Qty: 10 0RF atorvastatin 20 mg tablet 20 mg PO DAILY Qty: 90 3RF Primary Care Provider: Jaylon Jenkins Referrals: Jaylon Jenkins DO [Primary Care Provider] - 3-5 Days Disposition Disposition: Home, Self Care
[2022-03-21 14:17] VITALS: BP 160/87
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
--- NOTE | 2022-03-21 15:47 | ED.RN ---
HRO OFFICER AND SW IN WITH PT.
[2022-03-21 16:19] VITALS: BP 163/84; PULSE 78; RESP 16; O2SAT 99
--- NOTE | 2022-03-21 16:19 | ED.RN ---
PLAN PER SW: GOING TO SONS HOME WITH RESOURCES
== END 2022-03-21 16:20 | disposition home or self-care (01) ==
PROVIDERS: Emergency Provider Emergency Medicine; PCP Family Medicine; Visit Provider Emergency Medicine
DX: R42 Dizziness and giddiness (principal); I10 Essential (primary) hypertension; R00.1 Bradycardia, unspecified
CPT/HCPCS: 70450; 93005; 99284

== ENCOUNTER → 2022-05-01 | Outpatient (CLI) | payer MEDICARE, MEDICAID, SELFPAY ==
[2022-05-01 15:19] LABS: Absolute Neutrophil Count 3.4 X10^3/uL (2.0-7.7); Basophil# 0.04 X10^3/uL; Basophil% 0.7 % (0-1); Eosinophil# 0.08 X10^3/uL; Eosinophils% 1.3 % (0-5); Hematocrit 42.1 % (37-47); Hemoglobin 13.7 g/dL (12.0-15.0); Lymphocyte % 33.6 % (19-41); Mean Corp Hgb Conc 32.5 g/dL (32-36); Mean Corpuscular Hgb 28.9 pg (27.0-32.0); Mean Corpuscular Volume 88.8 fL (81-99); Mean Platelet Vol. 11.9 fl (6.2-12.0); Monocyte# 0.42 X10^3/uL; Monocyte% 7.1 % (0-10); NRBC Flagged by Analyzer 0 % (0-5); Neutrophil # 3.41 X10^3/uL (2.7-7.7); Neutrophil % 57.3 % (47-70); Platelet Count 264 K/mm3 (150-450); RBC Distribution Width CV 11.8 % (11.6-14.6); RBC Distribution Width SD 37.4 fl (35.1-43.9); Red Blood Count 4.74 M/mm3 (4.2-5.4)
[2022-05-01 15:39] LABS: Hemoglobin A1c 6.4 % (3.8-5.6)
[2022-05-01 16:11] LABS: ALB/GLOB Ratio 0.9 RATIO (0.9-2.4); AST(SGOT) 20 U/L (15-37); Alanine Aminotransfer ALT/SGPT 23 U/L (13-56); Albumin, Serum 3.7 g/dL (3.2-5.0); Alkaline Phosphatase 134 U/L (45-117); Anion Gap 6 (5-15); BUN 12 mg/dL (7-18); BUN/Creat Ratio 11.5 RATIO (10-20); Calcium,Total 9.2 mg/dL (8.5-10.1); Chloride 103 mmol/L (98-107); Cholesterol 151 mg/dL (200); Creatinine, Serum 1.04 mg/dL (0.55-1.02); EST Glomerular Filtration Rate 57 mL/min (>60); Est Glom Filt Rate - Afr Amer 69 mL/min (>60); Globulin 3.9 g/dL (2.2-4.2); Glucose 123 mg/dL (74-106); High Density Lipoprotein 70 mg/dL; Potassium 4.2 mmol/L (3.5-5.1); Protein, Total 7.6 g/dL (6.4-8.2); Sodium Level 137 mmol/L (136-145); Triglycerides 122 mg/dL; Very Low Density Lipoprotein 24 mg/dL (5-40)
== END | disposition home or self-care (01) ==
LOC: BFHLAB 13:49
PROVIDERS: PCP Family Medicine; Visit Provider Family Medicine
DX: I10 Essential (primary) hypertension (principal); E78.5 Hyperlipidemia, unspecified; R73.01 Impaired fasting glucose
CPT/HCPCS: 36415; 80053; 80061; 83036; 85025

== ENCOUNTER 2022-10-18 07:52 | Observation (INO) | payer MEDICARE, MEDICAID, SELFPAY ==
[2022-10-18] VITALS (15 sets, daily range): BP systolic 113–171; BP diastolic 72–128; PULSE 48–75; RESP 12–18; TEMP 36.3–36.7; O2SAT 51–100; BMI 36.1
--- NOTE | 2022-10-18 08:25 | CT_ITS ---
We are attempting to reach an attending provider to discuss findings. An addendum with communication details will be sent when the communication is complete. HISTORY: Neuro deficit, acute, stroke suspected. TECHNIQUE: Multiple axial images were obtained of the head without intravenous contrast. A radiation dose optimization technique was used for this scan. 234 images. COMPARISON: 03/21/2022. FINDINGS: BRAIN PARENCHYMA: Multiple foci and zones of low attenuation in the bilateral cerebral white matter compatible with chronic small vessel ischemic gliosis. No acute intra-axial hemorrhage identified. CSF SPACES: Mild volume loss. No midline shift or other significant mass effect. No acute extra-axial hemorrhage seen. OTHER: Intact calvarium. No significant air fluid levels in the paranasal sinuses or mastoid air cells. Unremarkable orbits. ASPECTS Score for Acute Strokes: 10 CT/STROKE Brain/Head without Cont IMPRESSION: No acute intracranial process identified. Chronic involutional and white matter changes. Electronically Signed: Cuca Varghese MD at 8:39 EDT ,
--- NOTE | 2022-10-18 08:25 | EKG12_ITS ---
Test Reason : STROKE TEAM Blood Pressure : / mmHG Vent. Rate : 051 BPM Atrial Rate : 051 BPM P-R Int : 150 ms QRS Dur : 078 ms QT Int : 440 ms P-R-T Axes : 029 -12 003 degrees QTc Int : 405 ms Sinus bradycardia Minimal voltage criteria for LVH, may be normal variant ( R in aVL ) Borderline ECG Confirmed by LUIS JOHNSON, BRODY ([id number]), primer expeditor and drier ANDRES TOM ([id number]) on 10/20/2022 1:15:11 PM Referred By: Confirmed By:BRODY SMITH MD
--- NOTE | 2022-10-18 08:25 | CT_ITS ---
We are attempting to reach an attending provider to discuss findings. An addendum with communication details will be sent when the communication is complete. HISTORY: Neuro deficit, acute, stroke suspected. TECHNIQUE: [place]/head and carotid CT angiogram protocol was performed after the intravenous administration of 100 mL Isovue 370. NASCET criteria using the distal ICAs for comparison were used for evaluation of stenoses. 3D reconstructions were reviewed. A radiation dose optimization technique was used for this scan. 2141 images. COMPARISON: CT head same day. FINDINGS: AORTIC ARCH AND BRANCHES: Mild atherosclerosis. RIGHT CCA: No occlusion, significant stenosis or dissection. RIGHT ICA: No occlusion, significant stenosis or dissection. LEFT CCA: No occlusion, significant stenosis or dissection. LEFT ICA: No occlusion, significant stenosis or dissection. RIGHT VERTEBRAL ARTERY: Dominant. No occlusion, significant stenosis or dissection. LEFT VERTEBRAL ARTERY: Originates directly off the arch hypoplastic. No occlusion, significant stenosis or dissection. ICAs: No significant stenosis at the intracranial/visualized segments. ACAs: No significant stenosis at the visualized segments. MCAs: No significant stenosis at the visualized segments. manager servicing: No significant stenosis at the visualized segments. BASILAR ARTERY: No significant stenosis. VERTEBRAL ARTERIES: No significant stenosis at the intradural/visualized segments. No evidence of intracranial aneurysm or vascular malformation. CT/STROKE CTA Head AND Neck W/Con IMPRESSION: No evidence for significant stenosis or occlusion in the carotid or vertebral arteries of the neck. No evidence for large vessel occlusion or other focal vascular abnormality in the [place] region. Electronically Signed: Cuca Varghese MD at 9:11 EDT ,
--- NOTE | 2022-10-18 08:26 | EDS_ITS ---
HPI History of Present Illness Chief Complaint: Neuro S/Sx Narrative Narrative: 62-year-old female woke up with numbness and tingling on the left arm and left leg. No facial droop or slurred speech. She called her PCPs office and I told her to come to the emergency room. She states he is got a new limp with her left leg. She initially thought she slept on it wrong but after laying down it did not go away. She is able to move her arm without any difficulty. She states it feels tingling in the left arm and left leg. She also says she has tingling in the right arm. No headache. No visual complaints. [facility] Medical History Abnormal stress test Angina pectoris Cardiology follow-up encounter Complete edentulism, class III Diarrhea Essential hypertension History of echocardiogram History of stress test Non-smoker Pancytopenia Signs and symptoms of anemia SOB (shortness of breath) on exertion Wears glasses Home Medications nitroglycerin 0.4 mg sublingual tablet 0.4 mg sublingual Q5-15M PRN chest pain #90 tabs 05/13/18 [Rx Last Taken Unknown] atorvastatin 20 mg tablet 20 mg PO DAILY #90 tabs 06/03/21 [Rx Last Taken Unknown] lisinopril 20 mg tablet 20 mg PO DAILY #90 tabs 09/17/21 [Rx Last Taken Unknown] nirmatrelvir 300 mg (150 mg x2)-ritonavir 100 mg tablet,dose pack (Paxlovid) See Rx Instructions PO .COMPLEX #30 tabs 10/07/21 [Rx Last Taken Unknown] nitrofurantoin monohydrate/macrocrystals 100 mg capsule (Macrobid) 100 mg PO Q12H 5 days #10 caps 10/07/21 [Rx Last Taken Unknown] ondansetron 4 mg disintegrating tablet 4 mg PO Q6H PRN nausea and vomiting #10 tabs 10/07/21 [Rx Last Taken Unknown] Allergy/AdvReac Type Severity Reaction Status Date / Time No Known Allergies Allergy Verified 09/17/21 13:51 Family History (Updated 10/18/22 @ 11:[address] Rowdy Resendez DO) Mother Hypertension Heart disease CVA (cerebral vascular accident) Father Hypertension Heart disease Surgical History History of left heart catheterization (LHC) (~06/08/18) History of oral surgery History of tonsillectomy S/P laparoscopic cholecystectomy Social History Smoking Status: Never smoker alcohol intake: never substance use type: does not use caffeine: Yes Type: carbonated beverages Number of servings: 2 ROS ROS ED Constitutional Constitutional ED: Denies chills, fever(s) or sweats Eyes Eyes: Denies blurry vision or change in vision ENT ENT ED: Denies ear pain or sore throat Cardiovascular Cardiovascular: Denies chest pain, palpitations or racing heartbeat Respiratory/Chest Respiratory/Chest: Denies cough, dyspnea or sputum Gastrointestinal Gastrointestinal: Denies abdominal pain, constipation, diarrhea, nausea or vomiting Genitourinary Genitourinary ED: Denies dysuria, hematuria or urinary frequency Musculoskeletal Musculoskeletal: Denies arthralgias, myalgias or neck pain Integumentary Denies abscess, Abrasions or rash Neurologic Neurologic: Reports paresthesias RUE, LUE and LLE; Denies headache(s) or weakness Psychiatric Psychiatric: Denies anxiety, depression, suicidal ideation or suicidal thoughts Endocrine Endocrinology: Denies polydipsia or polyuria EXAM Physical Exam Const Vital Signs: 10/18/22 07:54 10/18/22 08:25 10/18/22 08:36 Temperature 97.4 F L 97.4 F L Temperature Source Temporal Temporal Pulse Rate 58 L 58 L Respiratory Rate 16 16 Blood Pressure 126/84 H 126/84 H Blood Pressure Mean 98 98 Pulse Ox 100 100 Oxygen Delivery Method Room Air Room Air Room Air 10/18/22 08:55 10/18/22 09:25 10/18/22 09:55 Temperature Temperature Source Pulse Rate 58 L 51 L 50 L Respiratory Rate 12 16 16 Blood Pressure 123/104 H 159/79 H 144/89 H Blood Pressure Mean 110 105 107 Pulse Ox 95 95 97 Oxygen Delivery Method Room Air 10/18/22 10:25 10/18/22 10:55 10/18/22 11:00 Temperature 98.1 F Temperature Source Temporal Pulse Rate 48 L 61 61 Respiratory Rate 16 16 16 Blood Pressure 134/77 H 150/128 H 150/128 H Blood Pressure Mean 96 135 135 Pulse Ox 97 98 98 Oxygen Delivery Method Room Air Room Air Room Air Positive well nourished General Appearance ED: JC WALKER Reports moist mucous membranes Eyes PERRL and EOMs intact bilaterally Chest Wall inspection of chest normal Resp normal respiratory effort and clear to auscultation bilaterally Cardio Rate: regular rate Rhythm: regular rhythm Neuro oriented x3, CN's II-XII intact bilaterally and no sensory deficits noted Lan Coma Scale: document GCS findings Spontaneous Obeys Commands Oriented 15 Sensorium / Orientation: alert Motor Exam: strength 5/5 throughout Psych mental status grossly normal NIHSS NIHSS Initial: 1a Level of Consciousness: 0 1b LOC Questions (Score 2 if aphasic/stupor): 0 1c LOC Commands (Only score 1st attempt): 0 2 Best Gaze (If aphasic, use reflexive mvmts.): 0 3 Visual: 0 4 Facial Palsy: 0 5 Motor Arm Right (UN = amputation/fusion): 0 5 Motor Arm Left: 0 6 Motor Leg Right: 0 6 Motor Leg Left: 0 7 Limb ataxia (Only + if out of proportion): 0 8 Sensory (Aphasia/stupor=0 or 1, coma=2): 0 9 Best Language: 0 10 Dysarthria (mute, coma=2, intubated=UN): 0 11 Extinction and Inattention (only scored if +): 0 Total Score: 0 MDM MDM MDM Narrative Medical decision making narrative: Presenting with tingling sensation left arm and left leg. On examination no she states that she has symmetric sensation. Her NIH stroke scale score 0. Last known well is 10 PM last evening. She woke up this morning with the symptoms at 730. She states he has a new limp and is difficult to walk. She also complaining of tingling in the right upper extremity. [id number] glucose 127. Stroke team was called given her symptoms. She is outside the window for tPA. CT brain and CTA were negative for acute findings. CBC shows leukopenia and otherwise is normal. PT/INR normal. Renal function electrolytes within normal limits. EKG on my interpretation shows sinus bradycardia with a ventricular to 51 bpm without sign of ischemic change or ectopy. Chest x-ray on my interpretation shows no acute process. Radiologist interprets this and agrees. Patient was given aspirin. Discussed with stroke neurologist who recommended admission for MRI and further work-up. Patient amenable to this. Impression: 1. Strokelike symptoms Lab Data Attestation: I reviewed the patient's lab results. Labs: Laboratory Results - last 24 hr 10/18/22 10/18/22 10/18/22 08:55 09:12 10:00 WBC 4.2 L RBC 4.32 Hgb 12.5 Hct 38.9 MCV 90.0 MCH 28.9 MCHC 32.1 RDW Std Deviation 39.3 RDW Coeff of [place] 11.9 Plt Count 209 MPV 11.5 Immature Gran % (Auto) 0.200 Neut % (Auto) 57.1 Lymph % (Auto) 30.5 [place] % (Auto) 8.7 Eos % (Auto) 2.8 Baso % (Auto) 0.7 Absolute Neuts (auto) 2.4 Absolute Lymphs (auto) 1.29 Nucleated RBC % 0 PT 13.5 INR 1.0 APTT 26.8 Sodium Cancelled 137 Potassium Cancelled 3.9 Chloride Cancelled 105 Carbon Dioxide Cancelled 27.0 Anion Gap Cancelled 5 BUN Cancelled 7 Creatinine Cancelled 0.96 Estim Creat Clear Calc Cancelled Est GFR (MDRD) Af Amer Cancelled 75 Est GFR (MDRD) Non-Af Cancelled 62 BUN/Creatinine Ratio Cancelled 7.3 L Glucose Cancelled 125 H Calcium Cancelled 9.4 Troponin I High Sens Cancelled 7 POC Glucose 127 H Radiography Diagnostic Testing: Clinical Impression(s) from Imaging Studies Brain CT 10/18/22 08:25 IMPRESSION: No acute intracranial process identified. Chronic involutional and white matter changes. Electronically Signed: Cuca Varghese MD at 8:39 EDT Reading Location ID and State: [facility] / [place] Tel , Service support , ADDENDUM: 10/18/22 0847 IMPRESSION: No acute intracranial process identified. Chronic involutional and white matter changes. N.B. : The above Results were Read Back by Cuca Varghese MD to Jovani Titus DO, and understanding confirmed on 10/18/2022 08:40:55 (ET). Electronically Signed: Cuca Varghese MD at 8:39 EDT , Head/Neck CTA 10/18/22 08:25 IMPRESSION: No evidence for significant stenosis or occlusion in the carotid or vertebral arteries of the neck. No evidence for large vessel occlusion or other focal vascular abnormality in the [place] region. Electronically Signed: Cuca Varghese MD at 9:11 EDT , ADDENDUM: 10/18/22 0923 IMPRESSION: No evidence for significant stenosis or occlusion in the carotid or vertebral arteries of the neck. No evidence for large vessel occlusion or other focal vascular abnormality in the [place] region. N.B. : The above Results were Read Back by Cuca Varghese MD to Jovani Titus DO, and understanding confirmed on 10/18/2022 09:16:17 (ET). Electronically Signed: Cuca Varghese MD at 9:11 EDT , Chest X-Ray 10/18/22 08:45 IMPRESSION: No acute cardiopulmonary process identified. Electronically Signed: Cuca Varghese MD at 9:19 EDT , Discharge Plan Triage Chief Complaint: Neuro S/Sx Other Complaint: Back ED Provider: Jovani Titus Dx/Rx/DC Orders Primary Care Provider: Jaylon Jenkins
--- NOTE | 2022-10-18 08:45 | RAD_ITS ---
HISTORY: Neuro deficit, acute, stroke suspected. TECHNIQUE: XR Chest 1 View. COMPARISON: 10/07/2021. FINDINGS: CARDIOMEDIASTINAL BORDERS: Cardiac silhouette within normal limits in size. Mediastinal contour unremarkable with mild calcification of the aortic knob. LUNGS: Radiographically clear. PLEURA: No pleural effusion or pneumothorax seen. OSSEOUS STRUCTURES: Unremarkable. RAD/Chest 1 View IMPRESSION: No acute cardiopulmonary process identified. Electronically Signed: Cuca Varghese MD at 9:19 EDT ,
[2022-10-18 09:22] LABS: Bedside Glucose 127 mg/dL (74-106)
[2022-10-18 09:24] LABS: Absolute Lymphocyte Count 1.29 X10^3/uL (0.83-4.51); Absolute Neutrophil Count 2.4 X10^3/uL (2.0-7.7); Basophil# 0.03 X10^3/uL; Basophil% 0.7 % (0-1); Eosinophil# 0.12 X10^3/uL; Eosinophils% 2.8 % (0-5); Hematocrit 38.9 % (37-47); Hemoglobin 12.5 g/dL (12.0-15.0); Lymphocyte # 1.29 X10^3/ul (0.83-4.51); Lymphocyte % 30.5 % (19-41); Mean Corp Hgb Conc 32.1 g/dL (32-36); Mean Corpuscular Hgb 28.9 pg (27.0-32.0); Mean Platelet Vol. 11.5 fl (6.2-12.0); Monocyte# 0.37 X10^3/uL; Monocyte% 8.7 % (0-10); NRBC Flagged by Analyzer 0 % (0-5); Neutrophil # 2.41 X10^3/uL (2.7-7.7); Neutrophil % 57.1 % (47-70); Platelet Count 209 K/mm3 (150-450); RBC Distribution Width CV 11.9 % (11.6-14.6); RBC Distribution Width SD 39.3 fl (35.1-43.9); Red Blood Count 4.32 M/mm3 (4.2-5.4); White Blood Count 4.2 K/mm3 (4.4-11.0)
[2022-10-18 09:28] LABS: Prothrombin Time (Protime)PT. 13.5 SECONDS (11.7-14.9)
[2022-10-18 09:29] LABS: Partial Thromboplast Time 26.8 Seconds (24.1-36.2)
[2022-10-18 10:26] LABS: Anion Gap 5 (5-15); BUN 7 mg/dL (7-18); BUN/Creat Ratio 7.3 RATIO (10-20); Calcium,Total 9.4 mg/dL (8.5-10.1); Chloride 105 mmol/L (98-107); Creatinine, Serum 0.96 mg/dL (0.55-1.02); EST Glomerular Filtration Rate 62 mL/min (>60); Est Glom Filt Rate - Afr Amer 75 mL/min (>60); Glucose 125 mg/dL (74-106); Potassium 3.9 mmol/L (3.5-5.1); Sodium Level 137 mmol/L (136-145); Troponin-I HS 7 pg/mL (3.0-54.0)
[2022-10-18] MEDS: Aspirin 325 MG Tablet PO (11:15)
--- NOTE | 2022-10-18 11:29 | HP.PCM.HOS_ITS ---
[facility] - General General Date of Service: 10/18/22 Chief Complaint: left sided weakness. [facility] Narrative ANEUDY BERMUDEZ, is a 62 F who presents w left sided weakness. She went to bed around 2200 on 10/17, when she awoke this AM around 0730, she experienced left sided weakness. No dysarthria, no expressive nor receptive aphasia, visual changes. She called her PCP who advised her to come to the ED. She underwent a head CT and a CTA of the head a neck that were unremarkable. She received 325mg of ASA in the ED. She has never had anything like this before. She if left-hand dominant. Additionally, she states that she wants to divorce her . [facility] Medical History Abnormal stress test Angina pectoris Cardiology follow-up encounter Complete edentulism, class III Diarrhea Essential hypertension History of echocardiogram History of stress test Non-smoker Pancytopenia Signs and symptoms of anemia SOB (shortness of breath) on exertion Wears glasses Home Medications nitroglycerin 0.4 mg sublingual tablet 0.4 mg sublingual Q5-15M PRN chest pain #90 tabs 05/13/18 [Rx Last Taken Unknown] atorvastatin 20 mg tablet 20 mg PO DAILY #90 tabs 06/03/21 [Rx Last Taken Unknown] lisinopril 20 mg tablet 20 mg PO DAILY #90 tabs 09/17/21 [Rx Last Taken Unknown] nirmatrelvir 300 mg (150 mg x2)-ritonavir 100 mg tablet,dose pack (Paxlovid) See Rx Instructions PO .COMPLEX #30 tabs 10/07/21 [Rx Last Taken Unknown] nitrofurantoin monohydrate/macrocrystals 100 mg capsule (Macrobid) 100 mg PO Q12H 5 days #10 caps 10/07/21 [Rx Last Taken Unknown] ondansetron 4 mg disintegrating tablet 4 mg PO Q6H PRN nausea and vomiting #10 tabs 10/07/21 [Rx Last Taken Unknown] Allergy/AdvReac Type Severity Reaction Status Date / Time No Known Allergies Allergy Verified 09/17/21 13:51 Family History (Updated 10/18/22 @ 11:[address] Rowdy Resendez DO) Mother Hypertension Heart disease CVA (cerebral vascular accident) Father Hypertension Heart disease Surgical History History of left heart catheterization (LHC) (~06/08/18) History of oral surgery History of tonsillectomy S/P laparoscopic cholecystectomy Social History Smoking Status: Never smoker alcohol intake: never substance use type: does not use caffeine: Yes Type: carbonated beverages Number of servings: 2 ROS ROS Narrative All ROS are negative except as mentioned in the HPI. Vital Signs Vital Signs Vital Signs: 10/18/22 07:54 10/18/22 08:25 10/18/22 08:36 Temperature 36.3 C L 36.3 C L Temperature Source Temporal Temporal Pulse Rate 58 L 58 L Respiratory Rate 16 16 Blood Pressure 126/84 H 126/84 H Blood Pressure Mean 98 98 Pulse Ox 100 100 Oxygen Delivery Method Room Air Room Air Room Air 10/18/22 08:55 10/18/22 09:25 10/18/22 09:55 Temperature Temperature Source Pulse Rate 58 L 51 L 50 L Respiratory Rate 12 16 16 Blood Pressure 123/104 H 159/79 H 144/89 H Blood Pressure Mean 110 105 107 Pulse Ox 95 95 97 Oxygen Delivery Method Room Air 10/18/22 10:25 10/18/22 10:55 10/18/22 11:00 Temperature 36.7 C Temperature Source Temporal Pulse Rate 48 L 61 61 Respiratory Rate 16 16 16 Blood Pressure 134/77 H 150/128 H 150/128 H Blood Pressure Mean 96 135 135 Pulse Ox 97 98 98 Oxygen Delivery Method Room Air Room Air Room Air 10/18/22 11:10 Temperature Temperature Source Pulse Rate 55 L Respiratory Rate 18 Blood Pressure 150/128 H Blood Pressure Mean 135 Pulse Ox 98 Oxygen Delivery Method Room Air Physical Exam Const alert and no apparent distress HEENT normocephalic and head/scalp atraumatic HEENT Narrative: edentulous. malampati class I. Eyes PERRL and EOMs intact bilaterally Neck no lymphadenopathy Neck Narrative: no thyroimegaly Resp normal respiratory effort, no retractions, no use of accessory muscles and clear to auscultation bilaterally Cardio regular rate, regular rhythm, S1 normal heart sound and S2 normal heart sound GI normal to inspection, nondistended, normoactive bowel sounds, soft to palpation, non-tender and non-distended Extremity normal to inspection and no clubbing, cyanosis or edema Neuro oriented x3, CN's II-XII intact bilaterally and moves all extremities Neuro Narrative: MS 5/5 in RUE and LUE (with right being slightly stronger than the left). MS 5/5 in RLE, 4/5 in LLE. abnormal [id number] on left. Psych affect normal Results Lab / Micro Data 10/18/22 09:12 10/18/22 10:00 Labs: Laboratory Results - last 24 hr 10/18/22 08:55: POC Glucose 127 H 10/18/22 09:12: WBC 4.2 L, RBC 4.32, Hgb 12.5, Hct 38.9, MCV 90.0, MCH 28.9, MCHC 32.1, RDW Std Deviation 39.3, RDW Coeff of Glen 11.9, Plt Count 209, MPV 11.5, Immature Gran % (Auto) 0.200, Neut % (Auto) 57.1, Lymph % (Auto) 30.5, [place] % (Auto) 8.7, Eos % (Auto) 2.8, Baso % (Auto) 0.7, Absolute Neuts (auto) 2.4, Absolute Lymphs (auto) 1.29, Nucleated RBC % 0, PT 13.5, INR 1.0, APTT 26.8, Sodium Cancelled, Potassium Cancelled, Chloride Cancelled, Carbon Dioxide Cancelled, Anion Gap Cancelled, BUN Cancelled, Creatinine Cancelled, Estim Creat Clear Calc Cancelled, Est GFR (MDRD) Af Amer Cancelled, Est GFR (MDRD) Non-Af Cancelled, BUN/Creatinine Ratio Cancelled, Glucose Cancelled, Calcium Cancelled, Troponin I High Sens Cancelled 10/18/22 10:00: Sodium 137, Potassium 3.9, Chloride 105, Carbon Dioxide 27.0, Anion Gap 5, BUN 7, Creatinine 0.96, Est GFR (MDRD) Af Amer 75, Est GFR (MDRD) Non-Af 62, BUN/Creatinine Ratio 7.3 L, Glucose 125 H, Calcium 9.4, Troponin I High Sens [address] 10/18/22 08:25 IMPRESSION: No acute intracranial process identified. Chronic involutional and white matter changes. Electronically Signed: Cuca Varghese MD at 8:39 EDT , ADDENDUM: 10/18/22 0847 IMPRESSION: No acute intracranial process identified. Chronic involutional and white matter changes. N.B. : The above Results were Read Back by Cuca Varghese MD to Jovani Titus DO, and understanding confirmed on 10/18/2022 08:40:55 (ET). Electronically Signed: Cuca Varghese MD at 8:39 EDT , Head/Neck CTA 10/18/22 08:25 IMPRESSION: No evidence for significant stenosis or occlusion in the carotid or vertebral arteries of the neck. No evidence for large vessel occlusion or other focal vascular abnormality in the [place]. Electronically Signed: Cuca Varghese MD at 9:11 EDT , ADDENDUM: 10/18/22 0923 IMPRESSION: No evidence for significant stenosis or occlusion in the carotid or vertebral arteries of the neck. No evidence for large vessel occlusion or other focal vascular abnormality in the [place]. N.B. : The above Results were Read Back by Cuca Varghese MD to Jovani Titus DO, and understanding confirmed on 10/18/2022 09:16:17 (ET). Electronically Signed: Cuca Varghese MD at 9:11 EDT , Chest X-Ray 10/18/22 08:45 IMPRESSION: No acute cardiopulmonary process identified. Electronically Signed: Ccua Varghese MD at 9:19 EDT , Assessment & Plan Assessment/Plan (1) CVA (cerebral vascular accident): QUALIFIERS: CVA mechanism: unspecified Qualified Code(s): I63.9 - Cerebral infarction, unspecified PLAN: suspected. other possibilities include radicular MRI brain, echo, FLP, PT OT evals Patient received ASA 325 in ED, continue 81 starting 10/19. If work up is negative then would check imaging of C spine PLAN: Plan Chronic conditions: * HTN: perimissive HTN for next 24h, then can resume home medications * HLP VTE prophylaxis: not indicated given low-risk. Code: DW the patient--FULL CODE.
[2022-10-18 12:02] LABS: Troponin-I HS 6 pg/mL (3.0-54.0)
--- NOTE | 2022-10-18 12:23 | ED.RN ---
NIH COMPLETED AT PCU BEDSIDE BY THIS RN AND Lisa GONZALEZ RN. PT SCORED 0. CARE ASSUMED BY Lisa GONZALEZ RN.
--- NOTE | 2022-10-18 12:39 | ECHOD_ITS ---
Reason For Study: TIA/CVA Procedure This was a 2D Doppler, Color Flow transthoracic echocardiogram. Exam performed portable in patient room. Left Ventricle Normal LV size. Left ventricular systolic function is normal. The estimated ejection fraction is 60 %. Stage 1 diastolic dysfunction. No regional wall motion abnormalities noted. Right Ventricle Normal right ventricle. Normal systolic function. Atria Normal left atrium. Normal right atrium. Bubble contrast study negative for right to left interatrial shunt. Mitral Valve Normal mitral valve. Tricuspid Valve Normal tricuspid valve. Aortic Valve Normal aortic valve. Pulmonic Valve Normal pulmonic valve. Great Vessels Normal aortic root. The pulmonary artery is normal size. Normal inferior vena cava. Pericardium/Pleural No pericardial effusion. Medication Performed a rapid injection of agitated mix of 9 cc saline and 1cc air to assess for atrial septal defect. MMode/2D Measurements & Calculations LVIDd: 3.6 cm IVSd: 1.1 cm Ao root diam: 3.1 cm LVIDs: 1.9 cm LVPWd: 1.1 cm RVDd: 3.4 cm FS: 45.9 % LAV(MOD-bp): 47.3 ml LVAd ap4: 24.9 cm2 LVAd ap2: 22.7 cm2 LAV(MOD-bp) Indexed: 25.9 ml/m2 LVLd ap4: 7.5 cm LVLd ap2: 7.8 cm LAV(MOD-sp2): 66.6 ml EDV(MOD-sp4): 67.4 ml EDV(MOD-sp2): 55.9 ml LAV(MOD-sp4): 24.6 ml EDV(sp4-el): 69.6 ml EDV(sp2-el): 56.0 ml LVAs ap4: 12.6 cm2 LVAs ap2: 13.9 cm2 LVLs ap4: 6.7 cm LVLs ap2: 6.9 cm ESV(MOD-sp4): 21.0 ml ESV(MOD-sp2): 25.8 ml ESV(sp4-el): 20.2 ml ESV(sp2-el): 23.6 ml EF(MOD-sp4): 68.8 % EF(MOD-sp2): 53.7 % EF(sp4-el): 71.0 % SV(MOD-sp4): 46.3 ml SV(MOD-sp2): 30.0 ml SV(sp4-el): 49.4 ml LA A4 area: 10.9 cm2 LA dimension(2D): 3.4 cm RA A4 area: 12.8 cm2 TAPSE: 1.9 cm Time Measurements MV dec time: 0.26 sec Doppler Measurements & Calculations MV E max marvin: 60.3 cm/sec Lat Peak E' Marvin: 7.8 cm/sec Med Peak E' Marvin: 5.1 cm/sec MV A max marvin: 72.0 cm/sec E/E' lat: 7.8 E/E' med: 11.9 MV E/A: 0.84 Ao V2 max: 150.3 cm/sec LV V1 max: 104.3 cm/sec MV dec slope: 235.2 cm/sec2 Ao max P.0 mmHg LV V1 max P.3 mmHg LV V1 mean P.2 mmHg LV V1 mean: 68.6 cm/sec LV V1 VTI: 24.0 cm PA V2 max: 83.8 cm/sec TR max marvin: 170.7 cm/sec TR max P.7 mmHg ECHO/Echo Complete Interpretation Summary Normal LV size. Left ventricular systolic function is normal. The estimated ejection fraction is 60 %. Stage 1 diastolic dysfunction. Bubble contrast study negative for right to left interatrial shunt. Ordering Physician: Rowdy Resendez Referring Physician: Jaylon Jenkins Performed By: Lillian Egan RDCS
[2022-10-19] VITALS (7 sets, daily range): BP systolic 116–140; BP diastolic 68–77; PULSE 53–72; RESP 16–18; TEMP 36.1–36.6; O2SAT 96–100; BMI 36.1
[2022-10-19 06:07] LABS: Cholesterol 154 mg/dL (200); High Density Lipoprotein 63 mg/dL; Triglycerides 114 mg/dL; Very Low Density Lipoprotein 23 mg/dL (5-40)
--- NOTE | 2022-10-19 08:09 | PN.HOSP_ITS ---
Reason for Visit Reason for Visit: Diagnoses Cerebral infarction, unspecified (10/18/22) Subjective Subjective Feeling better. Objective Data Objective Data Vital Signs: Vital Signs Temp Pulse Resp BP Pulse Ox O2 Del Method 36.6 C 68 18 119/68 98 Room Air 10/19/22 04:45 10/19/22 04:45 10/19/22 04:45 10/19/22 04:45 10/19/22 07:33 10/19/22 07:33 Oxygen Delivery Method Room Air Weight: 86.6 kg Body Mass Index (BMI) 36.1 Intake & Output: Intake and Output for Last 24 Hours 10/17/22 10/18/22 10/19/22 23:59 23:59 23:59 Intake Total 520 / 520 Output Total 0 / 0 Balance 520 / 520 Lab / Micro Data 10/18/22 09:12 10/18/22 10:00 Labs: Laboratory Results - last 24 hr 10/18/22 08:55: POC Glucose 127 H 10/18/22 09:12: WBC 4.2 L, RBC 4.32, Hgb 12.5, Hct 38.9, MCV 90.0, MCH 28.9, MCHC 32.1, RDW Std Deviation 39.3, RDW Coeff of Glen 11.9, Plt Count 209, MPV 11.5, Immature Gran % (Auto) 0.200, Neut % (Auto) 57.1, Lymph % (Auto) 30.5, [place] % (Auto) 8.7, Eos % (Auto) 2.8, Baso % (Auto) 0.7, Absolute Neuts (auto) 2.4, Absolute Lymphs (auto) 1.29, Nucleated RBC % 0, PT 13.5, INR 1.0, APTT 26.8, Sodium Cancelled, Potassium Cancelled, Chloride Cancelled, Carbon Dioxide Cancelled, Anion Gap Cancelled, BUN Cancelled, Creatinine Cancelled, Estim Creat Clear Calc Cancelled, Est GFR (MDRD) Af Amer Cancelled, Est GFR (MDRD) Non-Af Cancelled, BUN/Creatinine Ratio Cancelled, Glucose Cancelled, Calcium Cancelled, Troponin I High Sens Cancelled 10/18/22 10:00: Sodium 137, Potassium 3.9, Chloride 105, Carbon Dioxide 27.0, Anion Gap 5, BUN 7, Creatinine 0.96, Est GFR (MDRD) Af Amer 75, Est GFR (MDRD) Non-Af 62, BUN/Creatinine Ratio 7.3 L, Glucose 125 H, Calcium 9.4, Troponin I High Sens 7 10/18/22 11:36: Troponin I High Sens 6 10/19/22 05:10: Triglycerides 114, Cholesterol 154, LDL Cholesterol 68, VLDL Cholesterol 23, HDL Cholesterol 63 Radiography Diagnostic Testing: Radiology Impression Brain CT 10/18/22 08:25 IMPRESSION: No acute intracranial process identified. Chronic involutional and white matter changes. Electronically Signed: Cuca Varghese MD at 8:39 EDT , ADDENDUM: 10/18/22 0847 IMPRESSION: No acute intracranial process identified. Chronic involutional and white matter changes. N.B. : The above Results were Read Back by Cuca Varghese MD to Jovani Titus DO, and understanding confirmed on 10/18/2022 08:40:55 (ET). Electronically Signed: Cuca Varghese MD at 8:39 EDT , Head/Neck CTA 10/18/22 08:25 IMPRESSION: No evidence for significant stenosis or occlusion in the carotid or vertebral arteries of the neck. No evidence for large vessel occlusion or other focal vascular abnormality in the [place]. Electronically Signed: Cuca Varghese MD at 9:11 EDT , ADDENDUM: 10/18/22 0923 IMPRESSION: No evidence for significant stenosis or occlusion in the carotid or vertebral arteries of the neck. No evidence for large vessel occlusion or other focal vascular abnormality in the [place]. N.B. : The above Results were Read Back by Cuca Varghese MD to Jovani Titus DO, and understanding confirmed on 10/18/2022 09:16:17 (ET). Electronically Signed: Cuca Varghese MD at 9:11 EDT , Chest X-Ray 10/18/22 08:45 IMPRESSION: No acute cardiopulmonary process identified. Electronically Signed: Cuca Varghese MD at 9:19 EDT , Physical Exam Const alert and no apparent distress Extremity normal to inspection and no clubbing, cyanosis or edema Neuro moves all extremities Neuro Narrative: [id number] improved on left. Motor Exam: strength 5/5 throughout Psych affect normal Assessment & Plan Assessment/Plan (1) CVA (cerebral vascular accident): QUALIFIERS: CVA mechanism: unspecified Qualified Code(s): I63.9 - Cerebral infarction, unspecified PLAN: suspected. other possibilities include radicular MRI brain, echo, FLP, PT OT evals Patient received ASA 325 in ED, continue 81 starting 10/19. If work up is negative then would check imaging of C spine Lipid panel unremarkable PLAN: Plan Chronic conditions: * HTN: resume lisinopril * HLP: continue statin VTE prophylaxis: not indicated given low-risk. Code: DW the patient--FULL CODE. Disposition: likely discharge home after stroke work up completed. Charges/Coding Visit Charges Inpatient E&M: 00344 Subs Hosp L2
[2022-10-19] MEDS: Aspirin 81 MG TAB.CHEW PO (08:34)
--- NOTE | 2022-10-19 10:00 | MRI_ITS ---
We are attempting to reach an attending provider to discuss findings. An addendum with communication details will be sent when the communication is complete. STUDY: MRI BRAIN WITHOUT CONTRAST REASON FOR EXAM: Female, 62 years old. paresthesias, lt sided weakness TECHNIQUE: Standardized multiplanar fat and water weighted pulse sequences were obtained. COMPARISON: Head CT dated October 18, 2022 FINDINGS: A small acute infarct is present in the central aspect of the right thalamic lobe. No additional acute infarcts are seen. There is mild cerebral atrophy with widening of the extra-axial spaces and ventricular dilatation. There are multiple white matter hyperintensities, distributed throughout the deep white matter tracts of the cerebral hemispheres, consistent with moderate chronic white matter ischemic changes. Normal T2* images of the brain without demonstrated susceptibility artifact. There is no demonstrated hemosiderin stain. Normal bilateral basal ganglia. Normal thalami. There is no extra-axial fluid accumulation. Normal flow voids within the major intracranial circulation suggesting patency by spin echo criteria. Normal sella turcica, pituitary gland, infundibular stalk, optic chiasm and hypothalamus. Normal tectal plate and pineal gland. Normal midbrain, wei and medulla. Normal cerebellum. Normal basal cisterns. Normal bilateral temporal bones. Normal bilateral internal auditory canals. No demonstrated orbital abnormality, within the constraints of a routine brain study. Normal visualized paranasal sinuses. Normal calvarium and skull base. Normal visualized soft tissue structures. Normal visualized upper cervical spine. MRI/Brain without Contrast IMPRESSION: Small acute right thalamic lobe infarct 1. A small acute infarct is present in the central aspect of the right thalamic lobe. No additional acute infarcts are seen. 2. Involutional and additional chronic ischemic changes of the brain, as described above. Electronically Signed: Abdulaziz Krishnan MD at 11:49 EDT ,
[2022-10-19] MEDS: Clopidogrel Bisulfate 300 MG Tablet PO (18:36)
[2022-10-19] MEDS: Atorvastatin Calcium 20 MG Tablet PO (20:23)
[2022-10-20 00:20] VITALS: BP 120/85; PULSE 56; RESP 18; TEMP 36.4; O2SAT 100
[2022-10-20 04:20] VITALS: BP 125/75; PULSE 51; RESP 16; TEMP 36.7; O2SAT 99
[2022-10-20 08:20] VITALS: BP 147/76; PULSE 53; RESP 16; TEMP 36.2; O2SAT 100
[2022-10-20] MEDS: amLODIPine 5 MG Tablet PO (08:37)
[2022-10-20] MEDS: Aspirin 81 MG TAB.CHEW PO (08:37)
[2022-10-20] MEDS: Lisinopril 20 MG Tablet PO (08:37)
[2022-10-20] MEDS: Clopidogrel Bisulfate 75 MG Tablet PO (08:37)
[2022-10-20 08:47] VITALS: BMI 36.1
[2022-10-20 09:45] VITALS: O2SAT 96
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
--- NOTE | 2022-10-20 10:39 | CASEMGMT ---
SW completed a PHQ 9 with patient as she had a Stroke. Patient scored a 4 which indicates minimal depression. Patient declines any need for counseling resources. [facility]
--- NOTE | 2022-10-20 10:54 | CASEMGMT ---
SHABNAM CARRANZA in to complete SUERO form with patient. SHABNAM CARRANZA explained SUERO form to patient, pateint voiced understanding. Patient signed SUERO form and filed in chart. Patient provided with copy of signed SUERO Form. SHABNAM CARRANZA dicussed discharge needs with patient. Patient would like outpatient therapy at [facility] and will need FWW at discharge. Patient prefers [employer] for DME. SHABNAM CARRANZA updated hospitalist and received scripts for outpatient therapy and walker. Patient requested SHABNAM CARRANZA to schedule therapy. SHABNAM CARRANZA called [facility] and scheduled PT for 10/21 at 1330 and 10/23 at 1500. SHABNAM CARRANZA sent referral to [facility] and provided FWW from stock. SHABNAM CARRANZA updated discharge plan with therapy appts. SHABNAM CARRANZA updated patient. Patient had no further questions or concerns at this time.
[2022-10-20 11:31] VITALS: O2SAT 97
[2022-10-20 12:20] VITALS: BP 122/79; PULSE 62; RESP 16; TEMP 36.4; O2SAT 100
--- NOTE | 2022-10-20 13:09 | PCM.DC.SUM ---
Providers Date of Admission: 10/18/22 Date of Discharge: 10/20/22 Primary Care Physician: Dr. Jaylon Jenkins DO Reason For Visit: PARESTHESIAS Diagnosis Discharge Diagnosis (1) CVA (cerebral vascular accident): Status: Acute Code(s): I63.9 - Cerebral infarction, unspecified Qualifiers: CVA mechanism: unspecified Qualified Code(s): I63.9 - Cerebral infarction, unspecified Medications at Discharge Home Medications nitroglycerin 0.4 mg sublingual tablet 0.4 mg sublingual Q5-15M PRN chest pain #90 tabs 05/13/18 atorvastatin 20 mg tablet 20 mg PO DAILY #90 tabs 06/03/21 lisinopril 20 mg tablet 20 mg PO DAILY #90 tabs 09/17/21 ondansetron 4 mg disintegrating tablet 4 mg PO Q6H PRN nausea and vomiting #10 tabs 10/07/21 amlodipine 5 mg tablet 5 mg PO DAILY BP 10/18/22 aspirin 81 mg chewable tablet 81 mg PO BREAKFAST #0 tabs 10/20/22 clopidogrel 75 mg tablet 75 mg PO DAILY #21 tabs 10/20/22 Hospital Course Operations None Procedures 2-D Echocardiogram and - (CT Brain/CTA Head and Neck/CXR/Brain MRI) Summary of Care Provided Minutes Spent on Discharge: 38 Hospital Course: Mrs. Collier is a 62-year-old white female who presented to the emergency department [facility] on 10/18/2022 with left-sided weakness and paresthesias. She reported that she went to bed around 2200 on 10/17/2022 and awoke on the morning of presentation at 730 and experienced left-sided weakness and paresthesias. She denied any dysarthria, aphasia, or visual changes. She called her primary care physician with the above symptoms and they instructed her to come to the emergency department. CT of the head was performed on admission as well as CTA and both were unremarkable. She received 325 mg of aspirin emergency department. She also indicated on presentation that she wanted to divorce her and this is causing undue stress. EKG was unremarkable. Chest x-ray was unremarkable. She was admitted to medical floor for stroke work-up. MRI was performed on 10/19/2022 and showed a small acute infarct in the central aspect of the right thalamic lobe and chronic involutional changes along with chronic ischemic changes. Hemoglobin A1c was 6.4 and she will be maintained on her diet controlled regimen. Lipids were assessed and she had a total cholesterol of 154/LDL of 68/HDL 63 and triglycerides were 114. She was maintained on her home atorvastatin dose. Echocardiogram was performed and demonstrated an EF of 60% with stage I diastolic dysfunction and a negative bubble study. Neurology was consulted and they recommended continue aspirin 81 mg daily indefinitely and adding Plavix 75 mg daily for 3 weeks for dual antiplatelet therapy with transition to monotherapy following this. Ongoing telemetry monitoring with an event monitor at discharge since no abnormalities were noted on her inpatient telemetry, and outpatient neurology follow-up. She was seen by physical and Occupational Therapy and they did not feel she needed any more inpatient therapy and recommended ongoing outpatient physical therapy at discharge. Prescription for this was given to the patient and outpatient follow-up was set up for her on 10/21/2022. Prescriptions for her Plavix were sent to local pharmacy and she was instructed to buy [id number] 81 mg aspirin tablets. Referral to neurology was made to be seen in the next 3 months and I did encourage her to call and make an appointment as soon as possible to be seen as soon as availability is present. I have also asked her to follow-up with her primary care physician within the next 2 to 3 weeks. At the time of discharge she did not have any significant weakness and paresthesias were resolved. Patient was able to be discharged home in stable condition on 10/20/2022. Discharge diagnoses: Right anterior thalamic stroke Hypertension Hyperlipidemia Insulin resistance Physical Exam Const alert, oriented x3, no apparent distress, healthy appearing and well nourished Constitutional Narrative: Obese, middle-aged, white female, sitting up in bed, appears comfortable, nontoxic, very talkative General Appearance: cooperative, comfortable, well kempt and well developed Orientation / Consciousness: awake, oriented to person, oriented to place and oriented to time Exam Limitations: no limitations Nutritional Appearance: obese HEENT normocephalic, head/scalp atraumatic, hearing grossly normal bilaterally and moist oral mucous membranes HEENT Narrative: Edentulous, Mallampati 3, no thrush Eyes PERRL, EOMs intact bilaterally and conjunctivae normal Eyes Narrative: No scleral icterus Neck no lymphadenopathy and supple Neck Narrative: Trachea midline, no thyroid enlargement Resp normal respiratory effort, no retractions, no use of accessory muscles and clear to auscultation bilaterally Auscultation: Negative for rales, rhonchi or wheezes Cardio regular rate, regular rhythm, S1 normal heart sound, S2 normal heart sound, no murmurs, no rub, no gallops and no clicks GI normal to inspection, nondistended, normoactive bowel sounds, soft to palpation and non-tender Extremity no clubbing, cyanosis or edema Skin no rashes or lesions noted, no wounds, skin turgor normal and no jaundice Neuro oriented x3, CN's II-XII intact bilaterally, moves all extremities, no focal motor deficits and no sensory deficits noted Speech: speech normal Psych affect normal Mood & Affect: anxious Weight / BMI Weight Weight: 86.6 kg Body Mass Index (BMI) 36.1 ABG / Lab / Microbiology Data 10/18/22 09:12 10/18/22 10:00 Meaningful Use Info Meaningful Use Diagnoses (Choose all that apply): None applicable Discharge Plan Admission Admit Date/Time: 10/18/22 11:04 Primary Reason for Your Visit: L sided weakness/parasthesias Attending Provider: Carrie Beal Primary Care Provider: Jaylon Jenkins Consulting Providers: Rowdy Resendez Discharge Orders/Prescriptions Prescriptions: New clopidogrel 75 mg Tablet 75 mg PO DAILY Qty: 21 0RF aspirin 81 mg Tablet,Chewable 81 mg PO BREAKFAST Qty: 0 0RF Continued nitroglycerin 0.4 mg tablet, sublingual 0.4 mg SUBLINGUAL Q5-15M PRN (Reason: chest pain) Qty: 90 3RF Rx Instructions: until response; do not exceed 3 doses per episode lisinopril 20 mg tablet 20 mg PO DAILY Qty: 90 3RF ondansetron 4 mg tablet,disintegrating 4 mg PO Q6H PRN (Reason: nausea and vomiting) Qty: 10 0RF amlodipine 5 mg tablet 5 mg PO DAILY atorvastatin 20 mg tablet 20 mg PO DAILY Qty: 90 3RF Other Ambulatory Orders: 30 Day Event Recorder Preventi (Urgent) Timeframe: 1 Day Facility: [facility] - Location: Cardiovascular Services Ordered By: Dr. Carrie Beal Referrals / Follow Up: Jaylon Jenkins DO [Primary Care Provider] - Within 2 Weeks Leobardo Beck MD [Non-Staff -Ordering Privileges] - Within 3 Months (call tomorrow to set up appt) Disposition Disposition (needs filled in before D/C Order can be placed): Home, Self Care Charges/Coding Visit Charges Inpatient E&M: 06771 Disch Hosp >30min
--- NOTE | 2022-10-20 14:44 | PHA.DC_ITS ---
Pharmacy [facility] has performed discharge medication reconciliation and counseling for this patient. 1. ASPIRIN 81MG PO DAILY 2. CLOPIDOGREL 75MG PO DAILY X 21 DAYS The patient's discharge medication list was reviewed for discrepancies and discrepancies were resolved. The patient was counseled on the following discharge medications and changes in medications for homegoing were reviewed. The Reason for Use, instructions for use, and potential side effects were reviewed for all new medications. The patient's questions regarding all of their medications were answered. The patient demonstrated some understanding but would benefit from further education and reinforcement. Patient counseled by clinical pharmacy managerKatlyn. Medications at Discharge Home Medications nitroglycerin 0.4 mg sublingual tablet 0.4 mg sublingual Q5-15M PRN chest pain #90 tabs 05/13/18 atorvastatin 20 mg tablet 20 mg PO DAILY #90 tabs 06/03/21 lisinopril 20 mg tablet 20 mg PO DAILY #90 tabs 09/17/21 ondansetron 4 mg disintegrating tablet 4 mg PO Q6H PRN nausea and vomiting #10 t abs 10/07/21 amlodipine 5 mg tablet 5 mg PO DAILY BP 10/18/22 aspirin 81 mg chewable tablet 81 mg PO BREAKFAST #0 tabs 10/20/22 clopidogrel 75 mg tablet 75 mg PO DAILY #21 tabs 10/20/22
--- NOTE | 2022-10-20 15:55 | CHAPLAIN ---
Type of Pastoral Visit _x__ Initial Visit ___ Follow-up Visit ___ On-call Visit ___ General Patient Visit ___ Spiritual Assessment ___ Family Conference ___ Bereavement ___ Rapid Response ___ Code Blue ___ Other (describe below) Pastoral Care Referral From _x__ Patient ___ Family ___ Nurse ___ Physician ___ Conceptor ___ Transit Planner ___ Other (describe below) Sacrament/Intervention _x__ Active listening ___ Anointing ___ Methodist ___ Bereavement ___ Communion _x__ Xochitl exploration ___ _x__ Life review _x__ Prayer ___ Reconciliation ___ Sacrament of Sick _x__ Supportive presence ___ Wedding ___ Other (describe below) Pastoral Comments patient is very expressive and talkative; pt speaks of her xochitl and her connection to a local [employer] advent; pt states she finds great 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
[2022-10-20 16:10] VITALS: BMI 36.1
== END 2022-10-20 13:11 | disposition home or self-care (01) ==
LOC: ED 10:08 → PCU 11:38
PROVIDERS: Emergency Provider Student in an Organized Health Care Education/Training Program; PCP Family Medicine; Visit Provider Internal Medicine
DX: I63.9 Cerebral infarction, unspecified (principal); R00.1 Bradycardia, unspecified; I10 Essential (primary) hypertension; E78.5 Hyperlipidemia, unspecified; Z79.899 Other long term (current) drug therapy; R29.700 NIHSS score 0; R53.1 Weakness; E88.81 Metabolic syndrome and other insulin resistance
CPT/HCPCS: 36415; 70450; 70496; 70498; 70551; 71045; 80048; 80061; 82962; 84484; 85025; 85610; 85730; 93005; 93306; 94762; 97162; 97165; 97530; 97535; 97802; 99221; 99285; Q9967; A4216; G0378

== ENCOUNTER 2023-01-28 14:00 | Outpatient (RCR) | payer MEDICARE, MEDICAID, SELFPAY ==
--- NOTE | 2022-10-21 14:38 | HP.PTEVAL_ITS ---
Patient's Visit Information Visit Information Visit Information: ANEUDY BERMUDEZ is a 62 year old F referred to Physical Therapy by Dr. Carrie Beal DO with a diagnosis of CVA 10/18/22. Date of Evaluation: 10/21/22 Physical Therapist: Christopher Polanco, PT, ATC Visit Plan Frequency: 2-3x /Week Duration: 4-6 Weeks Plan: L LE strengthening, balance and proprio, core strengthening, nustep, and HEP Subjective Subjective: CVA: 10/18/22.. Pt reports she went to bed on last Thursday night and reports she woke up with L sided weakness. Pt reports she called the ambulance and went to the ER. Pt notes she was admitted to PCU and noticed her L side strength started to come back quickly. Pt notes she was able to ambulate on Thursday night while in the hospital. Pt reports she was discharged on Thursday night (last night). Pt reports she now has intermittent L LE pain since having her stroke. Pt notes no prior Hx of CVA. Pt reports she has a at home th at is ill and she has to care for. Pt reports no Hx of falls. Pt reports she didn't use an AD prior to her CVA, but needs her walker this time especially for uneven terrain. Pt has 2 stairs to get into her house that she has to negotiate one step at a time. I don't really have pain today, my L leg just feels heavy and weird at times. Objective Objective: Neuro: B LE sensation is WNL to light touch. B patellar reflex= 1/3 MMT: R LE is grossly 5/5 throughout. L LE is grossly 4/5 throughout ROM: B LE's are WNL when compared bilaterally. FGA: - significant risk for falling Balance/Special Test Scores Functional Gait Assessment Score: 14 % Disability: 53.3400 Lower Extremity Functional Score: 32 Goals Goal 1:: Increase L LE strength x 1 grade to aid with stair negotiation Goal Time Frame: 4-6 Weeks Goal 2:: Increase FGA score x 5-10 points to aid with preventing future falls. Goal Time Frame: 4-6 Weeks Goal 3:: I with HEP Goal Time Frame: 4-6 Weeks Rehabilitation Potential Physical Therapy Diagnosis: Pt has L LE weakness, unsteady gait, and difficulty with stair negotiation secondary to CVA Rehabilitation Potential: Good Anticipated Interventions Patient/Client Instruction: Educate patient on: Condition and Plan of Care For the Purpose of:: To improve self management Therapeutic Exercise to Include: Strength training, Endurance training, Balance training, Gait and locomotor training and Dynamic Lumbar Stabilization For the Purpose of:: To improve muscle performance and motor function, To improve ability to perform ADL's and To increase tolerance to activity/condition/position Text: Thank you for the opportunity to evaluate your patient. For Medicare and Medicare HMO plans, please review the plan of care and approve it. It will need to be FAXED BACK to us at [phone] for Medicare purposes. For Medicare only, by signing this I certify the plan of care. Please let me know if there are questions or concerns regarding this plan of care. Physician Signature: Date:
--- NOTE | 2022-10-23 16:14 | HP.OTEVAL ---
Patient's Visit Information Visit Information Visit Information: ANEUDY BERMUDEZ is a 62 year old F, referred to Occupational Therapy by Dr. Jaylon Jenkins DO, with a diagnosis of CVA 10/18/22. Date of Evaluation: 10/23/22 Occupational Therapist: PAULIE Sky/Darshana, CHT Subjective Subjective: CVA: 10/18/22.. Pt reports she went to bed on last Thursday night and reports she woke up with L sided weakness. Pt reports she called the ambulance and went to the ER. Pt notes she was admitted to PCU and noticed her L side strength started to come back quickly. Pt notes she was able to ambulate on Thursday night while in the hospital. Pt reports she was discharged on Thursday night . Pt reports she now has intermittent L LE pain since having her stroke. Pt notes no prior Hx of CVA. Pt reports she has a at home that is ill and she has to care for. Pt reports no Hx of falls. Pt reports she is stressed with caring for at home and is planning on him. Pt is left hand dominant. Pt reports on numbness on L wrist, sometimes hand feels heavy. Denies vision and feels like left side is a weight. Daughter and drives, has a friend that takes her to sabianist. [ End ] ADLs Comments: Love to clean, hate to cook Numbness and heavy varies throughout the day has no issues with use of hand just tingling is bothersome Pt states she is IND with ADLS and IADLS. ROM ROM Comments: Pt demonstrates equal bilateral strength 4/5 utilizing MMT testing at the same time Strength Administrative Volunteer: L 59# R 61# Lateral Pinch: L 14# R 14# Tripod Pinch: L 11# R 11# Strength Comments: Bilateral equal strength Sensation Sensation Comments: Body space awareness - Does not demonstrate any body awareness difficulty when mimicking arm with unaffected UE . 2.83 in bilateral hands interpretation of normal sensation normal sensation Movement Movement Comments: Trips on L when ambulating, decreased endurance Visual/Perceptual Skills Visual Field Cut: No Left Neglect: No Cognitive Skills Follows Directions: Yes Oriented to (Check all that apply): Place Attention Attention: Normal Nine Hole Peg Right: 29.7 sec Left: 35.5 sec Stroke Specific Quality of Life Total SS-QOL Score: 230 Quick DASH-Disab of Arm,Shoulder& Hand Quick DASH Score: 27.2725 Rehabilitation General Assessment: Pt seen for OT eval status post stroke on 10/18/2022. Pt demonstrates equal strength in BUE, has normal sensation in both hands, and good ROM. Pt educated on returning to daily tasks, healing process, and awareness of LUE positioning. Skilled OT services are not warranted at this time. OT will discharge at this time, pt agreeable to OT plan. Will continue with Physical Therapy to regain balance to her PLOF. Therapy session directly supervised and doc. approved by Dominique Zhang OTR/Darshana,CHT. Visit Plan TEXT: Thank you for the opportunity to evaluate your patient. For Medicare and Medicare HMO plans, please review the plan of care and approve it. It will need to be FAXED BACK to us at [phone] for Medicare purposes. Please let me know if there are questions or concerns regarding this plan of care. Physician Signature: Date:
--- NOTE | 2022-12-17 13:52 | HP.PTREVAL ---
Re-Evaluation Intro: Dr. Jaylon Jenkins, DO, It has been my pleasure to treat ANEUDY BERMUDEZ over the last 10 visits for CVA 10/18/22. Please see the progress note below for an update on the physical therapy plan of care! Subjective Subjective: Pt reports her L LE still feels weak, and reports she continues to struggle with dynamic stability Objective Objective/Function: L LE strength: Hip flex, knee flex, and knee ext= 4-/5. hip abd and add= 5/5 FGA: Gait: Pt is able to ambulate greater than 1000 feet with CGAx1 Plan Plan Plan: Attempt to gain 12 more Balance/Gait/Functional tests Balance/Special Test Scores Functional Gait Assessment Score: 17 % Disability: 43.3400 Lower Extremity Functional Score: 34 Goals Goals Goal 1:: Increase L LE strength x 1 grade to aid with stair negotiation Goal Time Frame: 4-6 Weeks Goal 2:: Increase FGA score x 5-10 points to aid with preventing future falls. Goal Time Frame: 4-6 Weeks Goal 3:: I with HEP Goal Time Frame: 4-6 Weeks Anticipated Interventions Anticipated Interventions Patient/Client Instruction: Educate patient on: Condition and Plan of Care For the Purpose of:: To improve self management Therapeutic Exercise to Include: Strength training, Endurance training, Balance training, Gait and locomotor training and Dynamic Lumbar Stabilization For the Purpose of:: To improve muscle performance and motor function, To improve ability to perform ADL's and To increase tolerance to activity/condition/position Re-Evaluation Ending Re-evaluation ending: Please do not hesitate to contact me at [phone] by phone or if you have questions or concerns regarding this new plan of care! Sincerely, Christopher Polanco, PT, ATC
--- NOTE | 2023-01-28 15:33 | HP.PTDCSUM ---
Discharge Summary D/C summary: It has been my pleasure to treat ANEUDY BERMUDEZ referred by Dr. Jaylon Jenkins DO, with the diagnosis of CVA 10/18/22 for a total of 19 visit(s). Discharge Date: Please see the following information for a summary of their discharge status. Subjective Subjective: I feel really good now Overall Improvement % Improvement: 100 Objective Objective/Function: B LE strength is grossly 5/5 throughout FGA= Pt is I with HEP Rx goals achieved Goals Goal 1:: Increase L LE strength x 1 grade to aid with stair negotiation Goal Progress: Goal Met Goal 2:: Increase FGA score x 5-10 points to aid with preventing future falls. Goal Progress: Goal Met Goal 3:: I with HEP Goal Progress: Goal Met Plan Plan: Discharge to HEP D/C Information d/c sentence: If there are questions or concerns regarding this patient's physical therapy, please feel free to call me at [phone]. Thank you for the referral of this patient. Sincerely, Christopher Polanco, PT, ATC Balance/Gait/Functional tests Balance/Special Test Scores Functional Gait Assessment Score: 28 % Disability: 6.6700 Lower Extremity Functional Score: 80 Improvement % Improvement: 100
== END 2023-01-28 19:00 | disposition home or self-care (01) ==
LOC: PT 14:00
PROVIDERS: PCP Family Medicine; Referring Provider Internal Medicine; Visit Provider Family Medicine
DX: Z86.73 Personal history of transient ischemic attack (TIA), and cerebral infarction without residual deficits (principal)
CPT/HCPCS: 97110; 97161; 97164; 97166

== ENCOUNTER → 2023-12-28 | Outpatient (CLI) | payer MEDICARE, MEDICAID, SELFPAY ==
[2023-12-28 18:22] LABS: AST(SGOT) 20 U/L (15-37); Alanine Aminotransfer ALT/SGPT 24 U/L (13-56); Albumin, Serum 3.6 g/dL (3.2-5.0); Alkaline Phosphatase 118 U/L (45-117); Anion Gap 2 (5-15); BUN 7 mg/dL (7-18); BUN/Creat Ratio 8.1 RATIO (10-20); Calcium,Total 9.4 mg/dL (8.5-10.1); Chloride 106 mmol/L (98-107); Cholesterol 188 mg/dL (200); Creatinine, Serum 0.86 mg/dL (0.55-1.02); EST Glomerular Filtration Rate 71 mL/min (>60); Est Glom Filt Rate - Afr Amer 86 mL/min (>60); Globulin 3.5 g/dL (2.2-4.2); Glucose 93 mg/dL (74-106); High Density Lipoprotein 68 mg/dL; Potassium 3.8 mmol/L (3.5-5.1); Protein, Total 7.1 g/dL (6.4-8.2); Sodium Level 137 mmol/L (136-145); Triglycerides 139 mg/dL; Very Low Density Lipoprotein 28 mg/dL (5-40)
[2023-12-28 18:55] LABS: Hemoglobin A1c 6.4 % (3.8-5.6)
== END | disposition home or self-care (01) ==
LOC: BFHLAB 14:49
PROVIDERS: PCP Family Medicine; Referring Provider Family Medicine; Visit Provider Family Medicine
DX: R73.03 Prediabetes (principal); E78.5 Hyperlipidemia, unspecified; I10 Essential (primary) hypertension
CPT/HCPCS: 36415; 80053; 80061; 83036

== ENCOUNTER → 2024-08-22 | Outpatient (CLI) | payer MEDICARE, MEDICAID, SELFPAY ==
[2024-08-22 13:45] LABS: Hemoglobin A1c 6.5 % (<=5.6)
== END | disposition home or self-care (01) ==
PROVIDERS: PCP Family Medicine; Referring Provider Family Medicine; Visit Provider Family Medicine
DX: R73.03 Prediabetes (principal)
CPT/HCPCS: 36415; 83036

== ENCOUNTER → 2025-02-27 | Outpatient (CLI) | payer MEDICARE, MEDICAID, SELFPAY ==
[2025-02-27 09:34] LABS: Hematocrit 39.9 % (37-47); Hemoglobin 13.3 g/dL (12.0-15.0); Immature Granulocytes Count 0.000 X10^3/uL (0.0-0.0); Mean Corp Hgb Conc 33.3 g/dL (32-36); Mean Corpuscular Volume 86.2 fL (81-99); Mean Platelet Vol. 11.1 fl (6.2-12.0); NRBC Flagged by Analyzer 0 % (0-5); Platelet Count 203 K/mm3 (150-450); RBC Distribution Width CV 11.9 % (11.6-14.6); RBC Distribution Width SD 37.5 fl (35.1-43.9); Red Blood Count 4.63 M/mm3 (4.2-5.4); White Blood Count 4.7 K/mm3 (4.4-11.0)
[2025-02-27 10:07] LABS: AST(SGOT) 22 U/L (<=31); Alanine Aminotransfer ALT/SGPT 13 U/L (<=34); Albumin, Serum 4.0 g/dL (3.4-4.8); Alkaline Phosphatase 114 U/L (35-104); Anion Gap 10 (5-15); BUN 8 mg/dL (4-19); BUN/Creat Ratio 7.9 RATIO (10-20); Calcium,Total 9.6 mg/dL (7.6-11.0); Carbon Dioxide 23.9 mmol/L (21.0-32.0); Chloride 104 mmol/L (98-108); Cholesterol 205 mg/dL (<=200); Globulin 3.3 g/dL (2.2-4.2); Glucose 119 mg/dL (70-99); Low Density Lipoprotein Calc. 104 mg/dL; Potassium 4.8 mmol/L (3.3-5.1); Triglycerides 143 mg/dL; Very Low Density Lipoprotein 29 mg/dL (5-40); cholesterol:hdl ratio screen 2.68
[2025-02-27 12:26] LABS: Microalbumin,Random Urine 20.9 mg/L (<20 mg/L)
[2025-02-28 08:56] LABS: Creatinine, Urine (random) 197.00 mg/dL (28.00-217.00)
== END | disposition home or self-care (01) ==
LOC: LAB 08:53
PROVIDERS: PCP Family Medicine; Visit Provider Family Medicine
DX: I10 Essential (primary) hypertension (principal); E11.9 Type 2 diabetes mellitus without complications; I67.9 Cerebrovascular disease, unspecified
CPT/HCPCS: 36415; 80053; 80061; 82043; 82570; 83036; 85025